=== PATIENT | female | born 1935 | race Caucasian/White ===

== ENCOUNTER 2017-11-16 06:55 | Inpatient (IN) ==
[2017-11-16] MEDS ORDERED: Naloxone 0.4 MG/ML INJ IVP PRN (08:43)
[2017-11-16] MEDS ORDERED: Acetaminophen 325 MG TABLET PO PRN (08:43)
[2017-11-16] MEDS ORDERED: *HR* Labetalol 20 MG/4 ML SYRINGE IVP PRN (09:17)
--- NOTE | 2017-11-16 09:25 | Internal Med History&Physical ---
Date of Encounter: 11/16/17 Time of Encounter: 08:45 Internal Medicine - H&P: HPI Chief complaint: fall, left thigh pain History of present illness: Ms. Kelly is a 82 year old female with multiple orthopedic surgeries including hip, knee, shoulder replacements, presented to the outside hospital ED after an episode of fall today. Her left leg is shorter than her right and she always steps on her R side first to prevent from falling. This morning, when she was getting out of her bed, she stepped on her left side first by mistake and fell onto the floor hitting the back of her head and left thigh. Denies headache, loss of consciousness, blurring of vision, or focal weakness or numbness. No prodromal symptoms including chest pain, palpitation, short of breath, or lightheadedness. Denies any recent illnesses, fevers/chills, nausea/ vomiting, or any other GI or symptoms. In the outside hospital ED, she was afebrile and hemodynamically stable. Labs and radiological studies from the ED reviewed, notable for mildly comminuted and anteriolaterally displaced periprosthetic fracture of the mid left femur, extending to the distal component off the left total hip arthroplasty. CT head showed posterior scalp hematoma. Chest x-ray unremarkable. Lab works were in normal limits including CBC, BMP, INR, and troponin. She sees Dr. Kim for her L hip issue and wanted to be transferred to [facility] for further care. Past Med Surg Social Fam HX - Past Medical History Attestation: Yes The following information was validated with the patient. Medical history: hypertension, other Psychiatric history: anxiety - Past Surgical History Additional surgical history: Shoulder Surgery x2. Back surgery x 2 - Social History Smoking Status: Never smoker Smokeless Tobacco Status: No Alcohol use: none Drug use: none Internal Medicine - H&P: Meds HYDROcodone/Acet 5/325 mg [Rolla 5-325 mg] 1 tab PO Q6H PRN 3 Days #10 tab 10/09 [Rx] Meloxicam [Mobic] 7.5 mg PO DAILY #10 tablet 10/09/17 [Rx] 3 Allergy/AdvReac Type Severity Reaction Status Date / Time No Known Allergies Allergy Verified 08/16/17 12:49 All Systems PM: A 10-system review of systems was performed and is negative for pertinent findings except as documented above in the HPI. - Other Additional findings: General: Alert and oriented, not in distress HEENT:EOM, pupils equal, round, and reactive. Cardiovascular:Normal S1 & S2, systolic murmur over R and L 2nd intercostal space, no radiation to carotids Lungs:Normal breath sounds, no wheezes or crackles. Abdomen:Soft, non-tender, no rigidity. Extremities: L leg internally rotated, shorter than the right by 2 inches. Previous surgical scar over the hip and knee noted. Tender on palpation along the mid femur shaft. Neurovascularly intact distally. Neurological:Normal cognition and motor skills. Skin:Normal color, no rash, no lesions. Pulses:Carotid and radial pulses normal +2. Rest of the physical exam is non-contributory Internal Med - H&P Results - Impressions Laboratory and radiological workup from the outside hospital ED reviewed. See history of present illness for further information - Assessment and plan (1) Cayla-prosthetic femoral shaft fracture Current Visit: Yes Status: Acute Assessment and plan: After a mechanical fall She wishes to be seen by Dr. Kim, consult to orthopedics placed was informed that she is not for op today, will resume regular diet Analgesics (2) Heart murmur Current Visit: Yes Status: Suspected Assessment and plan: Likely due to aortic sclerosis No echocardiogram on file, will obtain one to rule out severe valvulopathy (3) Hypertension Current Visit: Yes Status: Chronic Assessment and plan: Not on any medications at home Aggravated by severe pain Pain management as above. If persistently elevated, will use when necessary agents. Qualifiers: Hypertension type: unspecified Qualified Code(s): I10 - Essential (primary ) hypertension (4) DVT prophylaxis Current Visit: Yes Status: Acute Assessment and plan: SQ heparin - Time Spent With Patient Total time spent is greater than 50% in coordination of care (as documented) at patient's floor/unit and/or counseling patient:
[2017-11-16] MEDS: *HR* OxyCODONE Immed Rel 5 MG TABLET PO PRN ×3 (09:52→23:35)
[2017-11-16] MEDS: Chloraseptic Spray 177 ML BOTTLE MM PRN (17:19)
[2017-11-16] MEDS: *HR* Heparin 5,000 UNIT/ML VIAL SQ SCH (17:19)
[2017-11-16] MEDS ORDERED: Baclofen 10 MG TABLET PO PRN (19:36)
[2017-11-16] MEDS: traMADol 50 MG TABLET PO PRN (20:58)
--- NOTE | 2017-11-16 21:47 | Orthopedic Consult Note ---
Date of Encounter: 11/16/17 Time of Encounter: 21:47 Assessment and Plan (1) Cayla-prosthetic femoral shaft fracture Current Visit: Yes Status: Acute The patient has a displaced periprosthetic femoral shaft fx. I discussed the case with Dr Kim and after medical optimization will plan for ORIF L periprosthetic femur fx with hardware removal L femur on Saturday. NPO at CT saturday. Bedrest/pain control. The diagnosis and treatment plan were discussed with the patient and family as well and they are in agreement with the treatment plan. History of Present Illness HPI: Ms. Kelly is a 82 year old female transferred from OSH with left thigh pain and deformity after a fall. [place] her left leg give out and fell onto her left thigh and hit the back of her head. Denies headache, loss of consciousness, and no prodromal symptoms including chest pain, palpitation, short of breath, or lightheadedness. In the outside hospital ED, she was afebrile and hemodynamically stable, and was diagnosed with displaced periprosthetic fx of left femur just distal to total hip. She has had 2 previous L MICHELLE, also a L TKA with a periprosthetic distal femur fx that was fixed with a short plate. Also has a history of spine surgery and chronic weakness in the lower extremity. Fx of left femur is at distal tip of MICHELLE and is proximal to supracondylar plate. CT of the head showed posterior scalp hematoma. Labs were in normal limits including CBC, BMP, INR, and troponin. She has seen Dr. Kim for her L hip issue in the past and had requested to be transferred to [facility] for further care. Past Med Surg Social Fam HX - Past Medical History Medical history: hyperlipidemia, hypertension, other Psychiatric history: anxiety - Past Surgical History Additional surgical history: Shoulder Surgery x2. Back surgery x 2 - Social History Smoking Status: Never smoker Smokeless Tobacco Status: No Alcohol use: none Drug use: none - Family History Mother Hx Family Endocrine Disorder: Yes (DM) Hx Family Neurologic Disorders: Yes (alzheimers) Medications and Allergies Cholecalciferol (D-3) [Vitamin D] 5,000 unit PO DAILY 11/16/17 [History] Citalopram Hydrobromide [Citalopram HBr] 20 mg PO DAILY 11/16/17 [History] Tramadol HCl [Ultram] 100 mg PO TID PRN 11/16/17 [History] amLODIPine [Norvasc] 5 mg PO DAILY 11/16/17 [History] 3 Allergy/AdvReac Type Severity Reaction Status Date / Time No Known Allergies Allergy Verified 08/16/17 12:49 All Systems Reviewed: The remainder of the systems were reviewed and are negative except as noted in HPI Physical Exam - Constitutional Vitals: Temp Pulse Resp BP Pulse Ox 99.0 F 89 15 145/80 92 11/16/17 18:30 11/16/17 18:30 11/16/17 18:30 11/16/17 18:30 11/16/17 21:21 Exam: Consult Exam: Constitutional -Vitals reviewed -The patient is well developed and well nourished. -Mood is pleasant. -The patient is well groomed. Psychiatric -The patient is fully alert and oriented x 3. Respiratory: -Respiratory effort normal Abdomen: -Soft abdomen -Non tender -Non distended: Left upper extremity: -No deformities. The overlying skin is intact. No obvious signs of acute trauma. -No tenderness to palpation throughout. -No significant pain with passive motion of the shoulder, elbow, wrist, and fingers within the limits of the bed. -Able to make an "OK" sign, cross the index and long fingers, and extend the thumb. -Sensation grossly intact to light touch throughout the median, radial, and ulnar distributions. -Radial pulse is present; Fingers have good capillary refill. Right upper extremity: -No deformities. The overlying skin is intact. No obvious signs of acute trauma. -No tenderness to palpation throughout. -No significant pain with passive motion of the shoulder, elbow, wrist, and fingers within the limits of the bed. -Able to make an "OK" sign, cross the index and long fingers, and extend the thumb. -Sensation grossly intact to light touch throughout the median, radial, and ulnar distributions. -Radial pulse is present; Fingers have good capillary refill. Left lower extremity: -Deformity present. The overlying skin is intact. Previous incisions healed -I did not range the hip due to the known fracture. -No tenderness along the knee, leg, ankle, foot, or toes. -Able to dorsiflex and plantarflex the ankle and toes. -Sensation is grossly intact to light touch throughout the sural, saphenous, superficial peroneal, and deep peroneal distributions. -Toes have good capillary refill. Right lower extremity: -No deformities. The overlying skin is intact. No obvious signs of acute trauma. -No tenderness to palpation throughout. -No pain with passive motion of the hip, knee, ankle, and toes within the limits of the bed. -No pain with axial loading of the thigh. -Able to dorsiflex and plantarflex the ankle and toes. -Sensation is grossly intact to light touch throughout the sural, saphenous, superficial peroneal, and deep peroneal distributions. -Toes have good capillary refill. Results - Labs Labs: All other labs normal. - Diagnostic results Knee x-ray: report reviewed, image reviewed (Displaced periprosthetic femur fx distal to MICHELLE stem. MICHELLE stem appears stable)
[2017-11-16] MEDS ORDERED: Ketorolac 15 MG/ML VIAL IVP ONE (21:49)
[2017-11-17] MEDS: *HR* Heparin 5,000 UNIT/ML VIAL SQ SCH ×2 (05:29→18:29)
[2017-11-17 05:50] LABS: Basophils % 0.3 %; Eosinophils # 0.1 K/mcL (0.0-0.6); Eosinophils % 0.7 %; Hematocrit 39.8 % (35.3-44.9); Hemoglobin 12.5 g/dL (11.5-15.4); Immature Granulocytes % 0.7 % (0-4); Mean Corpuscular HGB Conc 31.4 g/dL (31.6-35.5); Mean Corpuscular Hemoglobin 30.6 pg (28.0-33.3); Mean Corpuscular Volume 97.3 fL (83.0-100.0); Mean Platelet Volume 10.4 fL (9.4-12.4); Monocytes # 0.7 K/mcL (0.0-1.3); Monocytes % 5.8 %; Neutrophils # 10.2 K/mcL (1.6-8.9); Platelet Count 257 K/mcL (140-400); Red Blood Count 4.09 M/mcL (3.82-4.97); Red Cell Distribution Width 13.1 % (11.5-14.5); Segmented Neutrophils % 84.5 %
[2017-11-17 05:58] LABS: Prothrombin Time 11.8 Seconds (9.4-12.1)
[2017-11-17 07:13] LABS: BUN/Creatinine Ratio 21 (6-26); Blood Urea Nitrogen 21 mg/dL (8-23); Calcium 9.4 mg/dL (8.6-10.3); Carbon Dioxide 30 mEq/L (23-29); Chloride 104 mEq/L (98-107); Glucose 145 mg/dL (70-105); Osmolality,Calculated 276 (280-300); Potassium 4.7 mEq/L (3.5-5.1); Sodium 130 mEq/L (136-145); eGFR For Non-African Americans 52 (> 60)
[2017-11-17] MEDS: amLODIPine 5 MG TABLET PO SCH (09:25)
[2017-11-17] MEDS: *HR* OxyCODONE Immed Rel 5 MG TABLET PO PRN ×2 (09:25→18:30)
[2017-11-17] MEDS: Cholecalciferol (D-3) 1,000 UNIT TABLET PO SCH (09:26)
[2017-11-17] MEDS: traMADol 50 MG TABLET PO PRN ×2 (12:07→21:50)
[2017-11-17] MEDS ORDERED: Ketorolac 30 MG/ML VIAL IVP PRN (12:19)
--- NOTE | 2017-11-17 14:06 | Internal Med Progress Note ---
Date of Encounter: 11/17/17 Time of Encounter: 11:15 - Assessment and plan (1) Cayla-prosthetic femoral shaft fracture Current Visit: Yes Status: Acute Assessment and plan: ER imaging study showed- mildly comminuted and anterolaterally displaced periprosthetic fracture of the mid left femur, extending to the distal component off the left total hip arthroplasty. Orthopedics consulted, plan for ORIF L periprosthetic femur fx with hardware removal L femur tomorrow; continue pain control with PRN Ultram, Toradol and Oxycodone; bedrest; PT/OT postop; Given her age and poor baseline functional status and Echo findings, patient is at least moderate risk for noncardiac surgery; (2) Hypertension Current Visit: Yes Status: Chronic Assessment and plan: BP well-controlled, continue home meds; Qualifiers: Hypertension type: essential hypertension Qualified Code(s): I10 - Essential (primary) hypertension (3) DVT prophylaxis Current Visit: Yes Status: Acute Assessment and plan: on s.c Heparin; (4) Heart murmur Current Visit: Yes Status: Chronic Assessment and plan: Echocardiogram shows preserved EF, moderate-severe concentric LVH, mild- moderate AR, moderately calcified aortic valve leaflets, mild LVOT obstruction. (5) Anxiety Current Visit: Yes Status: Chronic Assessment and plan: per family, patient's anxiety and some confusion is new onset; CT head and CT C- Spine in the ER showed no trauma/fracture; she did receive posterior scalp sutures; repeat CT head today is normal; start PRN Hydroxyzine for anxiety; continue Citalopram; - Time Spent With Patient Total time spent is greater than 50% in coordination of care (as documented) at patient's floor/unit and/or counseling patient: - Subjective Interval history: patient is extremely anxious and talking about multiple unrelated things, jumping from one to the other; has left thigh pain and swelling from the fall; received posterior scalp sutures but no headache, nausea, vomiting, syncope; - Constitutional Vitals: Temp Pulse Resp BP Pulse Ox 99.0 F 81 16 136/70 93 11/17/17 11:28 11/17/17 11:28 11/17/17 11:28 11/17/17 11:28 11/17/17 11:28 General appearance: Present: mild distress, A&O X 3, answers questions appropriately - Respiratory Respiratory exam: Present: CTAB. Absent: accessory muscle use, rales, rhonchi, wheezes - Cardiovascular Cardiovascular exam: Present: RRR, +S1, +S2, systolic murmur. Absent: diastolic murmur, gallop, rubs - GI/Abdominal GI/Abdominal exam: Present: normal bowel sounds, soft, no peritoneal signs. Absent: distended, tenderness - Extremities Exam Extremities exam: Present: warm, radial pulses palpable and symmetrical. Absent : calf tenderness, cyanotic, pedal edema Additional comments: left posterolateral thigh- tenderness and edema+ - Psychiatric Psychiatric exam: Present: agitated Additional comments: seems anxious, jumping from one topic to another, oriented in general Internal Medicine: Result - Labs CBC & Chem 7: 11/17/17 04:28 11/17/17 06:40 Labs: Short CBC 11/17/17 Range/Units 04:28 WBC 12.1 H (4.3-11.1) K/mcL Hgb 12.5 (11.5-15.4) g/dL Hct 39.8 (35.3-44.9) % Plt Count 257 (140-400) K/mcL Neutrophils # 10.2 H (1.6-8.9) K/mcL BMP 11/17/17 06:40 Sodium 130 L Potassium 4.7 Chloride 104 Carbon Dioxide 30 H BUN 21 Creatinine 1.01 Glucose 145 H Calcium 9.4 - ABG Interpretation ABG results: PT/INR, D-dimer PT 11.8 Seconds (9.4-12.1) 11/17/17 04:28 - Impressions Impressions Head CT 11/17/17 12:18 IMPRESSION: No acute intracranial abnormality. D/ / Germain Petersen MD / Germain Petersen MD Interpreting Provider: Germain Petersen MD
[2017-11-17] MEDS: Ketorolac 30 MG/ML VIAL IVP PRN (14:57)
[2017-11-17] MEDS: Chloraseptic Spray 177 ML BOTTLE MM PRN (18:29)
[2017-11-18 00:40] LABS: Basophils % 0.3 %; Eosinophils # 0.2 K/mcL (0.0-0.6); Eosinophils % 1.6 %; Hematocrit 34.8 % (35.3-44.9); Hemoglobin 11.2 g/dL (11.5-15.4); Immature Granulocytes % 0.6 % (0-4); Lymphocytes # 1.2 K/mcL (0.6-4.6); Lymphocytes % 10.5 %; Mean Corpuscular HGB Conc 32.2 g/dL (31.6-35.5); Mean Corpuscular Hemoglobin 30.5 pg (28.0-33.3); Mean Corpuscular Volume 94.8 fL (83.0-100.0); Mean Platelet Volume 10.2 fL (9.4-12.4); Monocytes # 0.9 K/mcL (0.0-1.3); Monocytes % 8.2 %; Platelet Count 217 K/mcL (140-400); Red Blood Count 3.67 M/mcL (3.82-4.97); Red Cell Distribution Width 12.9 % (11.5-14.5); Segmented Neutrophils % 78.8 %
[2017-11-18 01:02] LABS: BUN/Creatinine Ratio 29 (6-26); Blood Urea Nitrogen 26 mg/dL (8-23); Carbon Dioxide 28 mEq/L (23-29); Chloride 98 mEq/L (98-107); Glucose 153 mg/dL (70-105); Osmolality,Calculated 282 (280-300); Potassium 4.5 mEq/L (3.5-5.1); Sodium 132 mEq/L (136-145); eGFR For Non-African Americans 59 (> 60)
[2017-11-18] MEDS: *HR* OxyCODONE Immed Rel 5 MG TABLET PO PRN ×3 (04:57→19:25)
[2017-11-18] MEDS: *HR* Heparin 5,000 UNIT/ML VIAL SQ SCH (04:59)
--- NOTE | 2017-11-18 06:45 | Orthopedics Progress Note ---
Date of Encounter: 11/18/17 Time of Encounter: 06:44 Subjective Interval history: Patient seen this morning x-rays reviewed left periprosthetic femoral shaft fracture plan for open reduction internal fixation. On exam patient shortened external rotated neurovascularly intact. Thigh soft We reviewed the risks and benefits as well as recovery. All questions were answered. The patient agreed to this treatment plan and appeared to understand the plan is reviewed. Objective Vital signs: Vital Signs Temp Pulse Resp BP Pulse Ox 11/18/17 05:41 98.9 F 80 18 186/69 94 11/17/17 23:33 99.0 F 88 14 169/69 92 11/17/17 19:49 92 11/17/17 19:32 98.7 F 86 16 159/69 92 11/17/17 15:31 99.3 F 80 14 147/75 92 11/17/17 11:28 99.0 F 81 16 136/70 93 11/17/17 09:35 95 11/17/17 07:02 99.0 F 85 16 146/70 95 Intake and Output 11/17/17 11/17/17 11/18/17 15:59 23:59 07:59 Intake Total 240 / 240 740 / 740 Output Total 275 / 275 Balance 240 / 240 465 / 465 Intake: Oral 240 / 240 740 / 740 Output: Catheter 275 / 275 Other: Meal Lunch Dinner Percent of Meal Consumed 40% 50% Weight 68.5 kg Patient Weight 11/18/17 23:59 Weight 68.5 kg - Labs CBC & BMP: 11/18/17 00:21 11/18/17 00:21 Labs: Abnormal lab results WBC 11.5 K/mcL (4.3-11.1) H 11/18/17 00:21 RBC 3.67 M/mcL (3.82-4.97) L 11/18/17 00:21 Hgb 11.2 g/dL (11.5-15.4) L 11/18/17 00:21 Hct 34.8 % (35.3-44.9) L 11/18/17 00:21 Neutrophils # 9.0 K/mcL (1.6-8.9) H 11/18/17 00:21 Sodium 132 mEq/L (136-145) L 11/18/17 00:21 BUN 26 mg/dL (8-23) H 11/18/17 00:21 Est GFR (Non-Af Amer) 59 (> 60) L 11/18/17 00:21 BUN/Creatinine Ratio 29 (6-26) H 11/18/17 00:21 Glucose 153 mg/dL (70-105) H 11/18/17 00:21
--- NOTE | 2017-11-18 09:11 | Event Note ---
Date of Encounter: 11/18/17 Time of Encounter: 09:11 Risks and benefits of surgery reviewed with patient and her daughter at bedside. Informed consent for surgery obtained.
[2017-11-18] MEDS: Ketorolac 30 MG/ML VIAL IVP PRN ×2 (09:13→19:18)
[2017-11-18] MEDS: Cholecalciferol (D-3) 1,000 UNIT TABLET PO SCH (09:14)
[2017-11-18] MEDS: amLODIPine 5 MG TABLET PO SCH (09:14)
--- NOTE | 2017-11-18 10:31 | Internal Med Progress Note ---
Date of Encounter: 11/18/17 Time of Encounter: 10:00 - Assessment and plan (1) Cayla-prosthetic femoral shaft fracture Current Visit: Yes Status: Acute Assessment and plan: ER imaging study showed- mildly comminuted and anterolaterally displaced periprosthetic fracture of the mid left femur, extending to the distal component off the left total hip arthroplasty. For ORIF L periprosthetic femur fx with hardware removal L femur today continue pain control with PRN Ultram, Toradol and Oxycodone; bedrest; PT/OT postop; Given her age and poor baseline functional status and Echo findings, patient is at least moderate risk for noncardiac surgery (2) Heart murmur Current Visit: Yes Status: Chronic Assessment and plan: Echocardiogram shows preserved EF, moderate-severe concentric LVH, mild- moderate AR, moderately calcified aortic valve leaflets, mild LVOT obstruction. (3) Hypertension Current Visit: No Status: Chronic Assessment and plan: BP well-controlled, continue home meds; Qualifiers: Hypertension type: essential hypertension Qualified Code(s): I10 - Essential (primary) hypertension (4) DVT prophylaxis Current Visit: Yes Status: Acute Assessment and plan: Subcutaneous heparin (5) Anxiety Current Visit: Yes Status: Chronic Assessment and plan: When necessary hydroxyzine and continue home dose of Celexa - Subjective Interval history: Continues to have mild left thigh pain. Relatively controlled with pain medicine. Denies fever/chills, shortness of breath, chest pain, or cough. - Constitutional Vitals: Temp Pulse Resp BP Pulse Ox 98.0 F 96 16 150/75 93 11/18/17 07:13 11/18/17 07:13 11/18/17 07:13 11/18/17 07:13 11/18/17 07:13 General appearance: Present: mild distress, A&O X 3, answers questions appropriately Exam: - Respiratory Respiratory exam: Present: CTAB. Absent: accessory muscle use, rales, rhonchi, wheezes - Cardiovascular Cardiovascular exam: Present: RRR, +S1, +S2, systolic murmur. Absent: diastolic murmur, gallop, rubs - GI/Abdominal GI/Abdominal exam: Present: normal bowel sounds, soft, no peritoneal signs. Absent: distended, tenderness - Extremities Exam Extremities exam: Present: warm, radial pulses palpable and symmetrical. Absent : calf tenderness Additional comments: left posterolateral thigh - tenderness and edema + Internal Medicine: Result - Labs CBC & Chem 7: 11/18/17 00:21 11/18/17 00:21 Labs: Short CBC 11/18/17 Range/Units 00:21 WBC 11.5 H (4.3-11.1) K/mcL Hgb 11.2 L (11.5-15.4) g/dL Hct 34.8 L (35.3-44.9) % Plt Count 217 (140-400) K/mcL Neutrophils # 9.0 H (1.6-8.9) K/mcL BMP 11/18/17 00:21 Sodium 132 L Potassium 4.5 Chloride 98 Carbon Dioxide 28 BUN 26 H Creatinine 0.91 Glucose 153 H Calcium 9.0 - ABG Interpretation ABG results: PT/INR, D-dimer PT 11.8 Seconds (9.4-12.1) 11/17/17 04:28 - Impressions Impressions Head CT 11/17/17 12:18 IMPRESSION: No acute intracranial abnormality. D/ / Germain Petersen MD / Germain Petersen MD Interpreting Provider: Germain Petersen MD
[2017-11-18] MEDS ORDERED: *HR* Propofol 200 MG/20 ML VIAL IVP ONE (14:48)
[2017-11-18] MEDS ORDERED: *HR* FentaNYL (PF) 100 MCG/2 ML VIAL ONE ×2 (14:48→15:51)
[2017-11-18] MEDS ORDERED: Ondansetron 4 MG/2 ML VIAL ONE (14:49)
[2017-11-18] MEDS ORDERED: Lidocaine -MPF 2% 2 ML VIAL ONE (14:49)
[2017-11-18] MEDS ORDERED: Dexamethasone 4 MG/ML VIAL ONE (14:49)
[2017-11-18] MEDS ORDERED: ceFAZolin 2,000 MG in Water for inj. (sterile) 20 ML 10 ML IVP ONE (15:17)
--- NOTE | 2017-11-18 15:26 | Anesthesia Evaluation PreOp ---
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 History: Other (Anxiety, Depression) Anesthesia History: No Prior Anesthetic Complications, Past Anesthesia Alcohol Use: none Drug use: none Medications and Allergies Cholecalciferol (D-3) [Vitamin D] 5,000 unit PO DAILY 11/16/17 [History] Citalopram Hydrobromide [Citalopram HBr] 20 mg PO DAILY 11/16/17 [History] Tramadol HCl [Ultram] 100 mg PO TID PRN 11/16/17 [History] amLODIPine [Norvasc] 5 mg PO DAILY 11/16/17 [History] 3 Allergy/AdvReac Type Severity Reaction Status Date / Time No Known Allergies Allergy Verified 08/16/17 12:49 - Meds/Allergy Pre-op Review Medications Reviewed: Yes Allergies Reviewed: Yes Beta Blockers on Current Med List: No Anesthesia Results - Labs 11/18/17 00:21 11/18/17 00:21 Anesthesia Exam O2 Sat Weight 68.5 kg Height 1.6 m Vital Signs Temp Pulse Resp BP Pulse Ox 97.6 F 88 18 142/72 93 11/16/17 09:55 11/16/17 09:55 11/16/17 09:55 11/16/17 09:55 11/16/17 09:55 NPO (# of Hours): 8 - HEENT Pupil (Motor): Pupils equal Mallampati: II Teeth: Missing, Poor dentition Denture Type: Upper: Complete Oral Opening: Greater than 3 - SUPPLY CHAIN TECHNICIAN LOC: Oriented - Cardiac Rhythm: Regular - Pulmonary Breath Sounds: bilateral Clear Anesthesia Assess/Plan ASA Score: 3 Modified Kim Scale for Level of Consciousness: Cooperative, oriented, and tranquil Anesthetic Plan: Regional (SAB - Primary anesthetic) Monitoring Plan: Standard Monitors Recovery Plan: PACU
[2017-11-18] MEDS ORDERED: Lidocaine -MPF 2% 5 ML VIAL ONE (15:27)
[2017-11-18] MEDS ORDERED: CeFAZolin Syr 2,000MG/20 ML 2,000 MG/20 ML SYRINGE IVPB ONE (15:45)
[2017-11-18] MEDS ORDERED: *HR* Midazolam HCl 2 MG/2 ML VIAL ONE (15:51)
[2017-11-18] MEDS ORDERED: EPHEDrine 50 MG/ML VIAL ONE (15:52)
--- NOTE | 2017-11-18 16:31 | Anesthesia Procedures ---
Date of Encounter: 11/18/17 Time of Encounter: 16:10 Procedures: Anesthesia - Lumbar Puncture Patient ID/Chart reviewed: Yes Patient examined: Yes Any signs of Infection or bacteremia: No Patient on Blood thinners: No Consent Obtained: written consent Time Out Performed: Yes Patient Position: right lateral decubitus Site Prep: Aseptic Technique, Povidone-Iodine 1% Local Anesthetic Used: Lidocaine 1% Amount of anesthesia used (mls): 2.5 (0.5% BUPIVACAINE +25 MCG FENTANYL) Spinal Needle Gauge: 22G Interspace Used: Other (L2-L3) Fluid Initially Obtained: clear Complications: none Additional Comments:: 5 attempts, unable to identify suitable plane, last attempt paramedian.
[2017-11-18] MEDS ORDERED: *HR* PHENYLEPHRINE 1,000 MCG/10 ML SYRINGE IVP ONE ×2 (17:12→17:17)
--- NOTE | 2017-11-18 17:49 | Orthopedic Operative Note ---
Date of procedure: 11/18/17 Pre-op diagnosis: disPlaced periprosthetic left femur fracture Post-op diagnosis: same Procedure: Left open reduction internal fixation periprosthetic femur fracture Estimated blood loss: 200 cc Hardware: Waldo titanium broad 5.0 femoral plate, 2, 5.0 locking screws, 8, 4.5 locking screws, 8 Arthrex cerclage fiber tapes Operative procedure: The patient was brought to the operating room and placed on the operating room fracture table. The well leg was placed in the well leg cloeman, the fracture leg was placed in the fracture leg coleman. After general anesthesia was administered the operative leg was prepped and draped in the sterile surgical fashion The patient received IV antibiotics prior to skin incision. A standard lateral approach was made to the femur the incision is made to the skin and subcutaneous tissue. Hemostasis was obtained with Bovie cautery. Using careful blunt dissection the tensor fascia was identified and incised along the length of the incision. The vastus lateralis was elevated up after the fascia was split exposing the lateral femur and the fracture site. The fractures reduced and held in place with bone holding forceps. 5 Arthrex cerclage fiber tapes were passed to gain preliminary fixation. Position of the reduction was found to be acceptable fluoroscopic assistance. A Waldo 5.0 broad 10 hole plate was approximated to the lateral aspect. It was fixed distally in compression. It was fixed proximally compression. Screws were fixed bicortical going around the femoral component. Distally the plate overlapped the patient's previous periprosthetic femoral plate for the distal femur. Fixation was completed with a total of 2 5.0 locking screws and 8, 4.5 cortical screws. The plate fixation was augmented with 3 Arthrex cerclage fiber tapes. The wound was irrigated the fascia was closed with a running #1 PDS suture tensa fascia was closed with a running #2 PDS suture subcutaneous tissues and closed deep #1 PDS suture superficially with 0 PDS suture and skin was closed with Dermabond and skin charley. The patient was placed in a sterile dressing, and knee immobilizer The patient was extubated, and then transferred to the recovery room in stable condition. Anesthesia: spinal Surgeon: Chito Kim Was there an classroom assistant present: Yes Grain Wafer Machine Operator: Gracie Chambers Estimated blood loss (cc): 200 Condition: stable Disposition: PACU
[2017-11-18] MEDS ORDERED: Naloxone 0.4 MG/ML INJ IVP PRN (18:53)
[2017-11-18] MEDS ORDERED: Acetaminophen 325 MG TABLET PO PRN (18:53)
[2017-11-18] MEDS ORDERED: Chloraseptic Spray 177 ML BOTTLE MM PRN (18:53)
[2017-11-18] MEDS ORDERED: Baclofen 10 MG TABLET PO PRN (18:53)
--- NOTE | 2017-11-18 18:53 | Anesthesia Evaluation Post Op ---
Date of Encounter: 11/18/17 Time of Encounter: 18:45 Notes: Patient's vital signs have been reviewed. Patient is stable postoperatively and has adequately recovered from anesthesia. Patient is determined to have stable airway patency and respiratory function including respiratory rate and oxygen saturation. Patient has a stable heart rate, blood pressure and adequate hydration. Patients mental status is acceptable. Patients temperature is appropriate. Pain and nausea are adequately controlled. - Discharge PostOp Status: Transfer Patient to floor
[2017-11-18 20:54] LABS: Hematocrit 33.5 % (35.3-44.9)
[2017-11-18] MEDS: Ringers Solution, Lactated 1,000 ML IVC SCH (21:58)
[2017-11-19] MEDS: *HR* Labetalol 20 MG/4 ML SYRINGE IVP PRN (01:21)
[2017-11-19] MEDS: *HR* OxyCODONE Immed Rel 5 MG TABLET PO PRN ×3 (03:07→20:53)
[2017-11-19] MEDS: *HR* Heparin 5,000 UNIT/ML VIAL SQ SCH ×2 (06:06→17:47)
[2017-11-19] MEDS: traMADol 50 MG TABLET PO PRN (06:09)
--- NOTE | 2017-11-19 06:46 | Orthopedics Progress Note ---
Date of Encounter: 11/19/17 Time of Encounter: 06:46 Subjective Interval history: Patient was seen this morning doing well without complaints. Afebrile vital signs stable. Operative extremity: Neurovascularly intact Dressing clean dry and intact Calves nontender Assessment and plan: Continue with postoperative care Hematocrit 33 and orthopedically stable for discharge Objective Vital signs: Vital Signs Temp Pulse Resp BP Pulse Ox 11/19/17 03:12 98.0 F 77 18 134/74 97 11/19/17 01:45 83 148/67 11/19/17 00:59 97.9 F 92 18 197/80 98 11/18/17 21:55 97.7 F 77 18 165/70 97 11/18/17 21:00 94 11/18/17 20:55 97.7 F 80 18 160/71 95 11/18/17 19:55 97.8 F 81 20 167/70 97 11/18/17 19:25 97.8 F 85 20 170/75 97 11/18/17 19:16 97.8 F 87 24 172/76 97 11/18/17 18:43 98.9 F 84 18 164/77 98 11/18/17 18:33 98.9 F 89 16 153/84 96 11/18/17 18:23 89 16 125/72 95 11/18/17 18:13 88 14 113/86 98 11/18/17 18:03 97.4 F L 85 14 149/75 97 11/18/17 16:18 78 14 62/38 99 11/18/17 16:15 81 15 64/38 99 11/18/17 16:12 89 84/47 99 11/18/17 15:43 82 16 160/76 98 11/18/17 07:13 98.0 F 96 16 150/75 93 Intake and Output 11/18/17 11/18/17 11/19/17 15:59 23:59 07:59 Intake Total 100 / 100 Output Total 525 / 525 200 / 200 650 / 650 Balance -525 / -525 -200 / -200 -550 / -550 Intake: IV Fluids 100 / 100 Ancef 2,000 MG In 0.9 % Sodium 100 / 100 Chloride 100 ML @ 200 mls/hr IVPB Q8HR [facility] Rx#:[id number] Output: Estimated Blood Loss 200 / 200 Catheter 525 / 525 650 / 650 - Labs CBC & BMP: 07/31/18 01:01 11/18/17 00:21 Labs: Abnormal lab results WBC 11.5 K/mcL (4.3-11.1) H 11/18/17 00:21 RBC 3.67 M/mcL (3.82-4.97) L 11/18/17 00:21 Hgb 11.0 g/dL (11.5-15.4) L 11/19/17 01:01 Hct 33.0 % (35.3-44.9) L 11/19/17 01:01 Neutrophils # 9.0 K/mcL (1.6-8.9) H 11/18/17 00:21 Sodium 132 mEq/L (136-145) L 11/18/17 00:21 BUN 26 mg/dL (8-23) H 11/18/17 00:21 Est GFR (Non-Af Amer) 59 (> 60) L 11/18/17 00:21 BUN/Creatinine Ratio 29 (6-26) H 11/18/17 00:21 Glucose 153 mg/dL (70-105) H 11/18/17 00:21 - VTE Documentation of Mechanical Device: Venous foot pump, device
[2017-11-19] MEDS: Cholecalciferol (D-3) 1,000 UNIT TABLET PO SCH (08:12)
[2017-11-19] MEDS: amLODIPine 5 MG TABLET PO SCH (08:12)
[2017-11-19] MEDS: Ketorolac 30 MG/ML VIAL IVP PRN (13:45)
--- NOTE | 2017-11-19 14:02 | Internal Med Progress Note ---
Hospitalist Progress Note - Encounter Date of Encounter: 11/19/17 Time of Encounter: 10:30 - Subjective Interval History: Patient denies any new symptoms as far as pain is concerned. She states that it is better overall. She did have a difficult night 2 nights ago with anxiety but is comfortable - Exam Vitals: Temp Pulse Resp BP Pulse Ox 97.9 F 86 16 142/79 96 11/19/17 12:47 11/19/17 12:47 11/19/17 12:47 11/19/17 12:47 11/19/17 12:47 - Assessment and Plan (1) Cayla-prosthetic femoral shaft fracture Current Visit: Yes Status: Acute Assessment and Plan: ER imaging study showed- mildly comminuted and anterolaterally displaced periprosthetic fracture of the mid left femur, extending to the distal component off the left total hip arthroplasty. Orthopedics consulted, plan for ORIF L periprosthetic femur fx with hardware removal L femur tomorrow; continue pain control with PRN Ultram, Toradol and Oxycodone; bedrest; PT/OT postop; Given her age and poor baseline functional status and Echo findings, patient is at least moderate risk for noncardiac surgery; 11/19-postop day 1 ORIF for left femoral periprostatic fracture. Orthopedic surgery following and according to them she is stable for discharge. Awaiting disposition planning. Physical therapy and occupational therapy are recommending [facility] facility and case management is aware and working on discharge planning. I anticipate discharge soon. Pain control is appropriate (2) Hypertension Current Visit: No Status: Chronic Assessment and Plan: BP well-controlled, continue to monitor on home medication (3) DVT prophylaxis Current Visit: Yes Status: Acute Assessment and Plan: on s.c Heparin; (4) Heart murmur Current Visit: Yes Status: Chronic (5) Anxiety Current Visit: Yes Status: Chronic Assessment and Plan: per family, patient's anxiety and some confusion is new onset; CT head and CT C- Spine in the ER showed no trauma/fracture; she did receive posterior scalp sutures; repeat CT head today is normal; start PRN Hydroxyzine for anxiety; continue Citalopram; 11/19-continue when necessary anxiolytics DVT Prophylaxis: Subcutaneous heparin - Time Spent with Patient Total time spent is greater than 50% in coordination of care (as documented) at patient's floor/unit and/or counseling patient: 25 - 35 minutes Plan of Care Discussed with: patient Internal Medicine: Result - Labs CBC & Chem 7: 11/19/17 01:01 11/18/17 00:21 Labs: Short CBC 11/18/17 11/19/17 Range/Units 20:33 01:01 Hgb 11.0 L 11.0 L (11.5-15.4) g/dL Hct 33.5 L 33.0 L (35.3-44.9) % - ABG Interpretation ABG results: PT/INR, D-dimer PT 11.8 Seconds (9.4-12.1) 11/17/17 04:28 - Impressions Impressions Femur X-Ray 11/18/17 15:59 IMPRESSION: Status post interval ORIF of the mid left femoral shaft fracture without complication identified. D/ / Lc Menjivar MD / Lc Menjivar MD Interpreting Provider: Lc Menjivar MD Fluoroscopy 11/18/17 16:25 IMPRESSION: Intraprocedural fluoroscopic spot images as above. See separate procedure report for more information. D/ / Renee Gallardo Cha, MD / Renee Gallardo Cha, MD Interpreting Provider: Renee Gallardo Cha, MD - VTE Documentation of Mechanical Device: Venous foot pump, device Consult Discharge Plan - Plan Referrals: NONE,PCP [Primary Care Provider] - (2) Hypertension Qualifiers: Hypertension type: essential hypertension Qualified Code(s): I10 - Essential (primary) hypertension
[2017-11-19] MEDS: Ringers Solution, Lactated 1,000 ML IVC SCH (18:11)
--- NOTE | 2017-11-19 18:27 | Event Note ---
Date of Encounter: 11/19/17 Time of Encounter: 12:15 POD#1 s/p Date of procedure: 11/18/17 Pre-op diagnosis: disPlaced periprosthetic left femur fracture Post-op diagnosis: same Procedure: Left open reduction internal fixation periprosthetic femur fracture Procedure performed by Dr. Kim. PCR - Patient seen at bedside. Patient's daughter available on the floor. Alert and oriented x 3. Patient noted to be agitated stating that she does not wish to to extended care facility or prison. She states she is okay with rehabilitation however she states that she will only go she personally speaks to the facility and is sure that she will be well treated. Reassurance regarding social work and the team involvement was not reassuring to patient and she became increasingly agitated eventually raising her voice and becoming tearful. Patient was able to be calmed by stating that a decision was not made as of yet today and that she would be able to speak with Dr. Kim in the morning regarding her concerns for rehabilitation. Patient resting supine in bed. Incision clean dry and intact. Dressings intact. TROM brace in place to left lower extremity. No calf tenderness to bilateral lower extremities. She is neurovascularly intact to bilateral lower extremities. Labwork and medications reviewed. H/H Vital signs reviewed. Pain control: Adequate - tizanidine added for additional pain relief. Participating in PT. All questions and concerns addressed. Educated on use of incentive spirometer, ambulation, and hydration. Patient educated on post-operative restrictions and care. Addressed: Patient is to have NO KNEE MOTION. REMAIN IN TROM BRACE TO LEFT KNEE AT ALL TIMES - REMOVE FOR HYGEINE PURPOSES ONLY. NONWEIGHTBEARING TO LLE X 6 WEEKS. BONE STIMULATOR 3 HRS/DAY. Opsite placed. KEEP DRESSING INTACT UNTIL FIRST FOLLOW UP APPOINTMENT WITH [facility]. If greater than 50% saturated, notify office, remove dressing and place appropriate dressing back in place. Leave Zipline and charley intact. Opsite dressing is water resistant, not water-proof. OK to shower, but do not get dressing wet. D/C plan: ECF versus inpatient rehabilitation. Patient with significant concerns - social work aware and working on placement at this time. Appropriate for discharge from orthopedic perspective so long as above stated restrictions remain in place.
[2017-11-20 01:21] LABS: Hematocrit 27.5 % (35.3-44.9)
[2017-11-20] MEDS: *HR* Labetalol 20 MG/4 ML SYRINGE IVP PRN (04:28)
[2017-11-20] MEDS: *HR* Heparin 5,000 UNIT/ML VIAL SQ SCH ×3 (05:01→18:08)
[2017-11-20] MEDS: *HR* OxyCODONE Immed Rel 5 MG TABLET PO PRN ×3 (05:54→19:50)
--- NOTE | 2017-11-20 06:45 | Orthopedics Progress Note ---
Date of Encounter: 11/20/17 Time of Encounter: 06:44 Subjective Interval history: Patient was seen this morning postoperative confusion possible signed Afebrile vital signs stable. Operative extremity: Neurovascularly intact Dressing clean dry and intact Calves nontender Assessment and plan: Continue with postoperative care Hemoglobin 9 Objective Vital signs: Vital Signs Temp Pulse Resp BP Pulse Ox 11/20/17 04:06 98.0 F 87 15 186/70 92 11/19/17 23:41 98.2 F 85 17 153/70 92 11/19/17 19:59 98.4 F 83 19 158/63 95 11/19/17 17:27 99.1 F 86 16 149/87 96 11/19/17 12:47 97.9 F 86 16 142/79 96 11/19/17 08:26 95 11/19/17 06:53 98.2 F 78 15 132/72 95 Intake and Output 11/19/17 11/19/17 11/20/17 15:59 23:59 07:59 Intake Total 1480 / 1480 120 / 120 Output Total 650 / 650 600 / 600 Balance 830 / 830 -480 / -480 Intake: IV Fluids 1000 / 1000 Lactated Ringers 1,000 ML @ 75 1000 / 1000 mls/hr IVC .[id number] [facility] Rx#: [id number] Oral 480 / 480 120 / 120 Output: Catheter 650 / 650 600 / 600 Other: Meal Lunch Dinner Percent of Meal Consumed 100% 60% - Labs CBC & BMP: 11/20/17 00:44 11/18/17 00:21 Labs: Abnormal lab results WBC 11.5 K/mcL (4.3-11.1) H 11/18/17 00:21 RBC 3.67 M/mcL (3.82-4.97) L 11/18/17 00:21 Hgb 9.0 g/dL (11.5-15.4) L D 11/20/17 00:44 Hct 27.5 % (35.3-44.9) L 11/20/17 00:44 Neutrophils # 9.0 K/mcL (1.6-8.9) H 11/18/17 00:21 Sodium 132 mEq/L (136-145) L 11/18/17 00:21 BUN 26 mg/dL (8-23) H 11/18/17 00:21 Est GFR (Non-Af Amer) 59 (> 60) L 11/18/17 00:21 BUN/Creatinine Ratio 29 (6-26) H 11/18/17 00:21 Glucose 153 mg/dL (70-105) H 11/18/17 00:21 - VTE Documentation of Mechanical Device: Venous foot pump, device Consult Discharge Plan - Plan Referrals: NONE,PCP [Primary Care Provider] -
[2017-11-20] MEDS: Ringers Solution, Lactated 1,000 ML IVC SCH (09:32)
[2017-11-20] MEDS: amLODIPine 5 MG TABLET PO SCH (09:41)
[2017-11-20] MEDS: Cholecalciferol (D-3) 1,000 UNIT TABLET PO SCH (09:42)
[2017-11-20] MEDS: Ketorolac 30 MG/ML VIAL IVP PRN ×2 (09:42→12:39)
--- NOTE | 2017-11-20 13:43 | Internal Med Progress Note ---
Hospitalist Progress Note - Encounter Date of Encounter: 11/20/17 Time of Encounter: 13:38 - Subjective Interval History: has no compliants, currently ating break fast. denies leg pain. was evaluated by orthopedics earlier. reports that her pain is more controlled alos her anxiety is better. denies N/v/D- is tolerating PO diet cenies CP, SOB, palpitations - Exam Vitals: Temp Pulse Resp BP Pulse Ox 98.5 F 73 16 135/77 93 11/20/17 11:11 11/20/17 11:11 11/20/17 11:11 11/20/17 11:11 11/20/17 11:11 Exam: General: Patient is alert, not in distress, eating breakfast Head: atraumatic, normocephalic, Eye: normal appearance, PERRL, no scleral icterus, no conjunctival injection ENT: mucous membranes moist, normal external ear exam Neck: normal inspection, trachea midline, full ROM, no carotid bruits Chest: normal inspection, symmetric chest rise Respiratory: Good respiratory effort. Bilateral breath sounds are clear Cardiovascular: Regular rate and rhythm. s1 and s2 ve systolic murmur Abdomen: BS +ve , soft nontender musculoskeletal: Spontaneously moving all extremities. + edema, has brace on Skin: warm, dry, intact. Neuro: Alert, speech is appropriate moving all extremities Psych: Patient's affect is normal - Assessment and Plan (1) Cayla-prosthetic femoral shaft fracture Current Visit: Yes Status: Acute Assessment and Plan: ER imaging study showed- mildly comminuted and anterolaterally displaced periprosthetic fracture of the mid left femur, extending to the distal component off the left total hip arthroplasty s/p ORIF for left femoral periprostatic fracture. orthopedecs on board will continue to follow recommendations [facility] and case management is aware and working on discharge planning. continue pain control Patient is to have no knee motion Remain in trom brace to the left knee at all times remove for hygiene purposes only Non-weight bearing to left lower extremity for 6 weeks Bone stimulator 3 hours per day Opsite placed. KEEP DRESSING INTACT UNTIL FIRST FOLLOW UP APPOINTMENT WITH [facility]. If greater than 50% saturated, notify office, remove dressing and place appropriate dressing back in place. Leave Zipline and charley intact. Opsite dressing is water resistant, not water-proof. OK to shower, but do not get dressing wet ON DVT prophylaxis as per Dr. Kim (2) Hypertension Current Visit: No Status: Chronic Assessment and Plan: BP well-controlled, continue to monitor on home medication (3) DVT prophylaxis Current Visit: Yes Status: Acute Assessment and Plan: on s.c Heparin; as per Orthopedics recommendations (4) Heart murmur Current Visit: Yes Status: Chronic Assessment and Plan: Echocardiogram shows preserved EF, moderate-severe concentric LVH, mild- moderate AR, moderately calcified aortic valve leaflets, mild LVOT obstruction. (5) Anxiety Current Visit: Yes Status: Chronic Assessment and Plan: 11/16/17- IMPRESSION: No acute intracranial abnormality. start PRN Hydroxyzine for anxiety; continue Citalopram; DVT Prophylaxis: on heparin SC as per orthopedics recommendations - Time Spent with Patient Total time spent is greater than 50% in coordination of care (as documented) at patient's floor/unit and/or counseling patient: Internal Medicine: Result - Labs CBC & Chem 7: 11/20/17 00:44 11/18/17 00:21 Labs: Short CBC 11/20/17 Range/Units 00:44 Hgb 9.0 L D (11.5-15.4) g/dL Hct 27.5 L (35.3-44.9) % - ABG Interpretation ABG results: PT/INR, D-dimer PT 11.8 Seconds (9.4-12.1) 11/17/17 04:28 - VTE Documentation of Mechanical Device: Venous foot pump, device Consult Discharge Plan - Plan Referrals: NONE,PCP [Primary Care Provider] - (2) Hypertension Qualifiers: Hypertension type: essential hypertension Qualified Code(s): I10 - Essential (primary) hypertension
--- NOTE | 2017-11-20 16:23 | Event Note ---
Date of Encounter: 11/20/17 Time of Encounter: 11:30 POD#2 s/p Date of procedure: 11/18/17 Pre-op diagnosis: disPlaced periprosthetic left femur fracture Post-op diagnosis: same Procedure: Left open reduction internal fixation periprosthetic femur fracture Procedure performed by Dr. Kim. PCR - Patient seen at bedside. Alert and oriented x person, place. Patient continues to have intermittent spurts of agitation regarding orientation to time and events. She states she got shots to her right hip last night by a doctor. I am unable to discern from her statements to what she is referring and believe her to be experiencing ongoing if not worsened confusion compared to yesterday. Patient resting supine in bed. Incision clean dry and intact. Dressings intact. TROM brace in place to left lower extremity. No calf tenderness to bilateral lower extremities. She is neurovascularly intact to bilateral lower extremities. Labwork and medications reviewed. Vital signs reviewed. Pain control: Adequate - tizanidine added 11/19 for additional pain relief. Participating in PT. All questions and concerns addressed. Educated on use of incentive spirometer, ambulation, and hydration. Patient educated on post-operative restrictions and care. Addressed: Patient is to have NO KNEE MOTION. REMAIN IN TROM BRACE TO LEFT KNEE AT ALL TIMES - REMOVE FOR HYGIENE PURPOSES ONLY. NONWEIGHTBEARING TO LLE X 6 WEEKS. BONE STIMULATOR 3 HRS/DAY. Opsite placed. KEEP DRESSING INTACT UNTIL FIRST FOLLOW UP APPOINTMENT WITH [facility]. If greater than 50% saturated, notify office, remove dressing and place appropriate dressing back in place. Leave Zipline and charley intact. Opsite dressing is water resistant, not water-proof. OK to shower, but do not get dressing wet. D/C plan: ECF versus inpatient rehabilitation. Patient continues with significant concerns - social work aware and working on placement at this time. Appropriate for discharge from orthopedic perspective so long as above stated restrictions remain in place. Vital Signs Temp Pulse Resp BP Pulse Ox 11/20/17 15:35 98.8 F 78 18 161/69 93 11/20/17 11:11 98.5 F 73 16 135/77 93 11/20/17 07:41 97.4 F L 75 16 150/64 93 11/20/17 04:06 98.0 F 87 15 186/70 92 11/19/17 23:41 98.2 F 85 17 153/70 92 11/19/17 19:59 98.4 F 83 19 158/63 95 11/19/17 17:27 99.1 F 86 16 149/87 96 Intake and Output 11/20/17 11/20/17 11/20/17 07:59 15:59 23:59 Intake Total 240 / 240 Output Total 700 / 700 Balance -460 / -460 Intake: Oral 240 / 240 Output: Urine 500 / 500 Catheter 200 / 200 Other: Meal Breakfast Percent of Meal Consumed 100% All Lab Results (24 Hours) 11/20/17 Range/Units 00:44 Hgb 9.0 L D (11.5-15.4) g/dL Hct 27.5 L (35.3-44.9) %
[2017-11-20] MEDS ORDERED: *HR* LORazepam 2 MG/ML VIAL IVP PRN (19:39)
[2017-11-21 01:17] LABS: Basophils # 0.1 K/mcL (0.0-0.2); Basophils % 0.7 %; Eosinophils # 0.5 K/mcL (0.0-0.6); Hematocrit 28.8 % (35.3-44.9); Hemoglobin 9.3 g/dL (11.5-15.4); Immature Granulocytes % 0.5 % (0-4); Lymphocytes # 1.7 K/mcL (0.6-4.6); Mean Corpuscular HGB Conc 32.3 g/dL (31.6-35.5); Mean Platelet Volume 11.6 fL (9.4-12.4); Monocytes % 10.7 %; Neutrophils # 6.1 K/mcL (1.6-8.9); Platelet Count 186 K/mcL (140-400); Red Cell Distribution Width 12.9 % (11.5-14.5); Segmented Neutrophils % 65.1 %
[2017-11-21 01:35] LABS: BUN/Creatinine Ratio 38 (6-26); Blood Urea Nitrogen 25 mg/dL (8-23); Calcium 8.9 mg/dL (8.6-10.3); Carbon Dioxide 26 mEq/L (23-29); Chloride 101 mEq/L (98-107); Glucose 93 mg/dL (70-105); Osmolality,Calculated 282 (280-300); Potassium 4.5 mEq/L (3.5-5.1); Sodium 134 mEq/L (136-145); eGFR For Non-African Americans > 60 (> 60)
[2017-11-21] MEDS: *HR* OxyCODONE Immed Rel 5 MG TABLET PO PRN ×2 (04:16→20:46)
[2017-11-21] MEDS: *HR* Heparin 5,000 UNIT/ML VIAL SQ SCH ×2 (06:08→18:07)
--- NOTE | 2017-11-21 06:42 | Orthopedics Progress Note ---
Date of Encounter: 11/21/17 Time of Encounter: 06:41 Subjective Interval history: Patient was seen this morning postoperative confusion possible sun downing Afebrile vital signs stable. Operative extremity: Neurovascularly intact Dressing clean dry and intact Calves nontender Assessment and plan: Continue with postoperative care Hemoglobin 9.3 ortho stable for dc Objective Vital signs: Vital Signs Temp Pulse Resp BP Pulse Ox 11/21/17 00:23 97.9 F 79 16 159/74 95 11/20/17 19:31 98.2 F 86 17 147/67 95 11/20/17 15:35 98.8 F 78 18 161/69 93 11/20/17 11:11 98.5 F 73 16 135/77 93 11/20/17 07:41 97.4 F L 75 16 150/64 93 Intake and Output 11/20/17 11/20/17 11/21/17 15:59 23:59 07:59 Intake Total 240 / 240 Output Total 700 / 700 Balance -460 / -460 Intake: Oral 240 / 240 Output: Urine 500 / 500 Catheter 200 / 200 Other: Meal Breakfast Percent of Meal Consumed 100% Weight 70.9 kg Patient Weight 11/21/17 23:59 Weight 70.9 kg - Labs CBC & BMP: 11/21/17 00:40 11/21/17 00:40 Labs: Abnormal lab results RBC 3.00 M/mcL (3.82-4.97) L 11/21/17 00:40 Hgb 9.3 g/dL (11.5-15.4) L 11/21/17 00:40 Hct 28.8 % (35.3-44.9) L 11/21/17 00:40 Sodium 134 mEq/L (136-145) L 11/21/17 00:40 BUN 25 mg/dL (8-23) H 11/21/17 00:40 BUN/Creatinine Ratio 38 (6-26) H 11/21/17 00:40 - VTE Documentation of Mechanical Device: Venous foot pump, device Consult Discharge Plan - Plan Referrals: NONE,PCP [Primary Care Provider] -
[2017-11-21] MEDS: Ketorolac 30 MG/ML VIAL IVP PRN (10:31)
[2017-11-21] MEDS: amLODIPine 5 MG TABLET PO SCH (10:32)
[2017-11-21] MEDS: Cholecalciferol (D-3) 1,000 UNIT TABLET PO SCH (10:32)
--- NOTE | 2017-11-21 16:01 | Internal Med Progress Note ---
Hospitalist Progress Note - Encounter Date of Encounter: 11/21/17 Time of Encounter: 07:30 - Subjective Interval History: has no compliants, denies leg pain. reports that her pain is more controlled also her anxiety is better. She does not want to talk or be bothered today she would like to rest. denies N/v/D- is tolerating PO diet cenies CP, SOB, palpitations - Exam Vitals: Temp Pulse Resp BP Pulse Ox 98.4 F 83 17 163/63 93 11/21/17 11:03 11/21/17 11:03 11/21/17 11:03 11/21/17 11:03 11/21/17 11:03 Exam: General: Patient is alert, not in distress, eating breakfast Head: atraumatic, normocephalic, Eye: normal appearance, PERRL, no scleral icterus, no conjunctival injection ENT: mucous membranes moist, normal external ear exam Neck: normal inspection, trachea midline, full ROM, no carotid bruits Chest: normal inspection, symmetric chest rise Respiratory: Good respiratory effort. Bilateral breath sounds are clear Cardiovascular: Regular rate and rhythm. s1 and s2 ve systolic murmur Abdomen: BS +ve , soft nontender musculoskeletal: Spontaneously moving all extremities. + edema, has brace on Skin: warm, dry, intact. Neuro: Alert, speech is appropriate moving all extremities Psych: Patient's affect is normal - Assessment and Plan (1) Cayla-prosthetic femoral shaft fracture Current Visit: Yes Status: Acute Assessment and Plan: ER imaging study showed- mildly comminuted and anterolaterally displaced periprosthetic fracture of the mid left femur, extending to the distal component off the left total hip arthroplasty s/p ORIF for left femoral periprostatic fracture. orthopedecs on board will continue to follow recommendations Physical therapy and occupational therapy are recommending [facility] facility and case management is aware and working on discharge planning. continue pain control Patient is to have no knee motion Remain in trom brace to the left knee at all times remove for hygiene purposes only Non-weight bearing to left lower extremity for 6 weeks Bone stimulator 3 hours per day ON DVT prophylaxis as per Dr. Kim (2) Acute blood loss as cause of postoperative anemia Current Visit: Yes Status: Acute Assessment and Plan: CBC has been followed currently stable We will continue to monitor CBC Hemodynamically stable will start her on ferrous sulfate (3) Hypertension Current Visit: No Status: Chronic Assessment and Plan: BP well-controlled, continue to monitor on home medication (4) DVT prophylaxis Current Visit: Yes Status: Acute Assessment and Plan: on s.c Heparin; as per Orthopedics recommendations (5) Heart murmur Current Visit: Yes Status: Chronic Assessment and Plan: Echocardiogram shows preserved EF, moderate-severe concentric LVH, mild- moderate AR, moderately calcified aortic valve leaflets, mild LVOT obstruction. (6) Anxiety Current Visit: Yes Status: Chronic Assessment and Plan: 11/16/17- IMPRESSION: No acute intracranial abnormality. start PRN Hydroxyzine for anxiety; continue Citalopram; DVT Prophylaxis: On heparin subcutaneous - Time Spent with Patient Total time spent is greater than 50% in coordination of care (as documented) at patient's floor/unit and/or counseling patient: Plan of Care Discussed with: patient Internal Medicine: Result - Labs CBC & Chem 7: 11/21/17 00:40 11/21/17 00:40 Labs: Short CBC 11/21/17 Range/Units 00:40 WBC 9.4 (4.3-11.1) K/mcL Hgb 9.3 L (11.5-15.4) g/dL Hct 28.8 L (35.3-44.9) % Plt Count 186 (140-400) K/mcL Neutrophils # 6.1 (1.6-8.9) K/mcL BMP 11/21/17 00:40 Sodium 134 L Potassium 4.5 Chloride 101 Carbon Dioxide 26 BUN 25 H Creatinine 0.65 Glucose 93 Calcium 8.9 - ABG Interpretation ABG results: PT/INR, D-dimer PT 11.8 Seconds (9.4-12.1) 11/17/17 04:28 - VTE Documentation of Mechanical Device: Venous foot pump, device Consult Discharge Plan - Plan Referrals: NONE,PCP [Primary Care Provider] - (3) Hypertension Qualifiers: Hypertension type: essential hypertension Qualified Code(s): I10 - Essential (primary) hypertension
--- NOTE | 2017-11-21 16:21 | Event Note ---
Date of Encounter: 11/21/17 Time of Encounter: 14:00 POD#3 s/p Date of procedure: 11/18/17 Pre-op diagnosis: Displaced periprosthetic left femur fracture Post-op diagnosis: same Procedure: Left open reduction internal fixation periprosthetic femur fracture Procedure performed by Dr. Kim. PCR - Patient seen at bedside. Alert and oriented x person, place. Patient continues to have intermittent spurts of agitation regarding orientation to time and events. She is improved in her orientation today, though still not oriented to time. Patient resting in chair at bedside. Incision clean dry and intact. Dressings intact. TROM brace in place to left lower extremity. No calf tenderness to bilateral lower extremities. She is neurovascularly intact to bilateral lower extremities. Labwork and medications reviewed. Vital signs reviewed. Pain control: Adequate - tizanidine added 11/19 for additional pain relief. Participating in PT. All questions and concerns addressed. Educated on use of incentive spirometer, ambulation, and hydration. Patient educated on post-operative restrictions and care. Addressed: Patient is to have NO KNEE MOTION. REMAIN IN TROM BRACE TO LEFT KNEE AT ALL TIMES - REMOVE FOR HYGIENE PURPOSES ONLY. NONWEIGHTBEARING TO LLE X 6 WEEKS. BONE STIMULATOR 3 HRS/DAY. Opsite placed. KEEP DRESSING INTACT UNTIL FIRST FOLLOW UP APPOINTMENT WITH [facility]. If greater than 50% saturated, notify office, remove dressing and place appropriate dressing back in place. Leave Zipline and charley intact. Opsite dressing is water resistant, not water-proof. OK to shower, but do not get dressing wet. D/C plan: ECF versus inpatient rehabilitation. Appropriate for discharge from orthopedic perspective so long as above stated restrictions remain in place. Vital Signs Temp Pulse Resp BP Pulse Ox 11/21/17 11:03 98.4 F 83 17 163/63 93 11/21/17 07:45 97.7 F 79 19 157/98 92 11/21/17 00:23 97.9 F 79 16 159/74 95 11/20/17 19:31 98.2 F 86 17 147/67 95 Intake and Output 11/21/17 11/21/17 11/21/17 07:59 15:59 23:59 Intake Total 590 / 590 Output Total 400 / 400 Balance -400 / -400 590 / 590 Intake: Oral 590 / 590 Output: Straight Cath 400 / 400 Other: Meal Lunch Percent of Meal Consumed 75% Stool Size Small Stool Consistency soft Stool Color Brown Weight 70.9 kg Patient Weight 11/21/17 23:59 Weight 70.9 kg Short CBC 11/21/17 Range/Units 00:40 WBC 9.4 (4.3-11.1) K/mcL Hgb 9.3 L (11.5-15.4) g/dL Hct 28.8 L (35.3-44.9) % Plt Count 186 (140-400) K/mcL Neutrophils # 6.1 (1.6-8.9) K/mcL BMP 11/21/17 Range/Units 00:40 Sodium 134 L (136-145) mEq/L Potassium 4.5 (3.5-5.1) mEq/L Chloride 101 (98-107) mEq/L Carbon Dioxide 26 (23-29) mEq/L BUN 25 H (8-23) mg/dL Creatinine 0.65 (0.60-1.20) mg/dL Glucose 93 (70-105) mg/dL Calcium 8.9 (8.6-10.3) mg/dL
[2017-11-21] MEDS: traMADol 50 MG TABLET PO PRN (18:11)
[2017-11-22 00:53] LABS: Basophils # 0.1 K/mcL (0.0-0.2); Basophils % 0.7 %; Eosinophils # 0.4 K/mcL (0.0-0.6); Eosinophils % 4.1 %; Hematocrit 30.3 % (35.3-44.9); Hemoglobin 9.9 g/dL (11.5-15.4); Immature Granulocytes % 1.2 % (0-4); Lymphocytes # 1.7 K/mcL (0.6-4.6); Lymphocytes % 16.9 %; Mean Corpuscular HGB Conc 32.7 g/dL (31.6-35.5); Mean Corpuscular Hemoglobin 31.1 pg (28.0-33.3); Mean Corpuscular Volume 95.3 fL (83.0-100.0); Mean Platelet Volume 10.7 fL (9.4-12.4); Monocytes # 0.9 K/mcL (0.0-1.3); Monocytes % 9.1 %; Neutrophils # 6.7 K/mcL (1.6-8.9); Platelet Count 266 K/mcL (140-400); Red Blood Count 3.18 M/mcL (3.82-4.97); Red Cell Distribution Width 12.3 % (11.5-14.5)
[2017-11-22 01:09] LABS: BUN/Creatinine Ratio 35 (6-26); Blood Urea Nitrogen 23 mg/dL (8-23); Calcium 8.9 mg/dL (8.6-10.3); Carbon Dioxide 27 mEq/L (23-29); Chloride 103 mEq/L (98-107); Glucose 125 mg/dL (70-105); Osmolality,Calculated 275 (280-300); Potassium 4.3 mEq/L (3.5-5.1); Sodium 130 mEq/L (136-145); eGFR For Non-African Americans > 60 (> 60)
[2017-11-22] MEDS: *HR* OxyCODONE Immed Rel 5 MG TABLET PO PRN ×2 (04:15→14:29)
[2017-11-22] MEDS: *HR* Heparin 5,000 UNIT/ML VIAL SQ SCH (04:17)
[2017-11-22] MEDS: amLODIPine 5 MG TABLET PO SCH (08:02)
[2017-11-22] MEDS: Cholecalciferol (D-3) 1,000 UNIT TABLET PO SCH (08:03)
[2017-11-22] MEDS: traMADol 50 MG TABLET PO PRN (08:07)
--- NOTE | 2017-11-22 08:21 | Orthopedics Progress Note ---
Date of Encounter: 11/22/17 Time of Encounter: 08:21 Subjective Interval history: Patient was seen this morning oriented this morning significantly less confusion Afebrile vital signs stable. Operative extremity: Neurovascularly intact Dressing clean dry and intact Calves nontender Assessment and plan: Continue with postoperative care Hematocrit 30 stable for dc Objective Vital signs: Vital Signs Temp Pulse Resp BP Pulse Ox 11/22/17 07:08 98.1 F 75 14 173/70 93 11/22/17 04:06 98.2 F 78 16 177/68 94 11/21/17 21:27 94 11/21/17 19:05 98.1 F 88 16 161/70 94 11/21/17 11:03 98.4 F 83 17 163/63 93 Intake and Output 11/21/17 11/22/17 11/22/17 23:59 07:59 15:59 Output Total 750 / 750 550 / 550 Balance -750 / -750 -550 / -550 Output: Urine 750 / 750 550 / 550 Other: Weight 70.1 kg Patient Weight 11/22/17 23:59 Weight 70.1 kg - Labs CBC & BMP: 11/22/17 00:05 11/22/17 00:05 Labs: Abnormal lab results RBC 3.18 M/mcL (3.82-4.97) L 11/22/17 00:05 Hgb 9.9 g/dL (11.5-15.4) L 11/22/17 00:05 Hct 30.3 % (35.3-44.9) L 11/22/17 00:05 Sodium 130 mEq/L (136-145) L 11/22/17 00:05 BUN/Creatinine Ratio 35 (6-26) H 11/22/17 00:05 Glucose 125 mg/dL (70-105) H 11/22/17 00:05 Calculated Osmolality 275 (280-300) L 11/22/17 00:05 - VTE Documentation of Mechanical Device: Venous foot pump, device Consult Discharge Plan - Plan Referrals: NONE,PCP [Primary Care Provider] -
--- NOTE | 2017-11-22 11:23 | Internal Med Progress Note ---
Hospitalist Progress Note - Encounter Date of Encounter: 11/22/17 Time of Encounter: 08:00 - Subjective Interval History: has no compliants, denies leg pain. has been getting up to chair with assistance. reports that her strength has gotten better. denies N/v/D- is tolerating PO diet Denies CP, SOB, palpitations - Exam Vitals: Temp Pulse Resp BP Pulse Ox 98.1 F 75 14 173/70 93 11/22/17 07:08 11/22/17 07:08 11/22/17 07:08 11/22/17 07:08 11/22/17 07:08 Exam: General: Patient is alert, not in distress, eating breakfast Head: atraumatic, normocephalic, Eye: normal appearance, PERRL, no scleral icterus, no conjunctival injection ENT: mucous membranes moist, normal external ear exam Neck: normal inspection, trachea midline, full ROM, no carotid bruits Chest: normal inspection, symmetric chest rise Respiratory: Good respiratory effort. Bilateral breath sounds are clear Cardiovascular: Regular rate and rhythm. s1 and s2 ve systolic murmur Abdomen: BS +ve , soft nontender musculoskeletal: Spontaneously moving all extremities. + edema, has brace on Skin: warm, dry, intact. Neuro: Alert, speech is appropriate moving all extremities Psych: Patient's affect is normal - Assessment and Plan (1) Cayla-prosthetic femoral shaft fracture Current Visit: Yes Status: Acute Assessment and Plan: ER imaging study showed- mildly comminuted and anterolaterally displaced periprosthetic fracture of the mid left femur, extending to the distal component off the left total hip arthroplasty s/p ORIF for left femoral periprostatic fracture. orthopedecs on board will continue to follow recommendations Physical therapy and occupational therapy are recommending snf facility and case management is aware and working on discharge planning. continue pain control Patient is to have no knee motion Remain in trom brace to the left knee at all times remove for hygiene purposes only Non-weight bearing to left lower extremity for 6 weeks Bone stimulator 3 hours per day ON DVT prophylaxis as per Dr. Kim (2) Acute blood loss as cause of postoperative anemia Current Visit: Yes Status: Acute Assessment and Plan: CBC has been followed currently stable We will continue to monitor CBC Hemodynamically stable will start her on ferrous sulfate (3) Hypertension Current Visit: No Status: Chronic Assessment and Plan: BP well-controlled, continue to monitor on home medication (4) DVT prophylaxis Current Visit: Yes Status: Acute Assessment and Plan: on s.c Heparin; as per Orthopedics recommendations (5) Heart murmur Current Visit: Yes Status: Chronic Assessment and Plan: Echocardiogram shows preserved EF, moderate-severe concentric LVH, mild- moderate AR, moderately calcified aortic valve leaflets, mild LVOT obstruction. (6) Anxiety Current Visit: Yes Status: Chronic Assessment and Plan: Ct head 11/16/17- IMPRESSION: No acute intracranial abnormality. start PRN Hydroxyzine for anxiety; continue Citalopram; DVT Prophylaxis: as above - Time Spent with Patient Total time spent is greater than 50% in coordination of care (as documented) at patient's floor/unit and/or counseling patient: Plan of Care Discussed with: patient Internal Medicine: Result - Labs CBC & Chem 7: 11/22/17 00:05 11/22/17 00:05 Labs: Short CBC 11/22/17 Range/Units 00:05 WBC 9.8 (4.3-11.1) K/mcL Hgb 9.9 L (11.5-15.4) g/dL Hct 30.3 L (35.3-44.9) % Plt Count 266 (140-400) K/mcL Neutrophils # 6.7 (1.6-8.9) K/mcL BMP 11/22/17 00:05 Sodium 130 L Potassium 4.3 Chloride 103 Carbon Dioxide 27 BUN 23 Creatinine 0.66 Glucose 125 H Calcium 8.9 - ABG Interpretation ABG results: PT/INR, D-dimer PT 11.8 Seconds (9.4-12.1) 11/17/17 04:28 - VTE Documentation of Mechanical Device: Venous foot pump, device Consult Discharge Plan - Plan Referrals: NONE,PCP [Primary Care Provider] - (3) Hypertension Qualifiers: Hypertension type: essential hypertension Qualified Code(s): I10 - Essential (primary) hypertension
--- NOTE | 2017-11-22 12:39 | Event Note ---
Date of Encounter: 11/22/17 Time of Encounter: 12:39 POD#4 s/p Date of procedure: 11/18/17 Pre-op diagnosis: Displaced periprosthetic left femur fracture Post-op diagnosis: same Procedure: Left open reduction internal fixation periprosthetic femur fracture Procedure performed by Dr. Kim. PCR - Patient seen at bedside. She is on beside commode - wishes to speak with me. States had a bowel movement. Alert and oriented x person, place. Dressing clean, dry, and intact. TROM brace in place to left lower extremity. Labwork and medications reviewed. Vital signs reviewed. Pain control: Adequate - tizanidine added 11/19 for additional pain relief. Participating in PT. All questions and concerns addressed. Educated on use of incentive spirometer, ambulation, and hydration. Patient educated on post-operative restrictions and care. Addressed: Patient is to have NO KNEE MOTION. REMAIN IN TROM BRACE TO LEFT KNEE AT ALL TIMES - REMOVE FOR HYGIENE PURPOSES ONLY. NONWEIGHTBEARING TO LLE X 6 WEEKS. BONE STIMULATOR 3 HRS/DAY. Opsite placed. KEEP DRESSING INTACT UNTIL FIRST FOLLOW UP APPOINTMENT WITH [facility]. If greater than 50% saturated, notify office, remove dressing and place appropriate dressing back in place. Leave Zipline and charley intact. Opsite dressing is water resistant, not water-proof. OK to shower, but do not get dressing wet. D/C plan: ECF - Appropriate for discharge from orthopedic perspective so long as above stated restrictions remain in place.
--- NOTE | 2017-11-22 13:36 | Discharge Summary ---
- NOTES TO OUTPATIENT PROVIDER Notes to Outpatient Provider: follow with orthopedics. follow cbc, bmp saturday. Orders not resulted at time of discharge: Pending orders 11/18/17 15:28 PRBC [Red Blood Cells] [BBK] Stat Type and Screen [BBK] Stat 11/18/17 16:25 XR femur LT [XR] Routine 11/23/17 04:00 BMP [Basic Metabolic Panel] AM 0400 Complete Blood Count [HEME] AM 0400 Date of Encounter: 11/22/17 Time of Encounter: 13:29 - Discharge Diagnosis (1) Cayla-prosthetic femoral shaft fracture Priority: Primary Status: Acute (2) Acute blood loss as cause of postoperative anemia Priority: Secondary Status: Acute (3) Hypertension Priority: Secondary Status: Chronic Qualifiers: Hypertension type: essential hypertension Qualified Code(s): I10 - Essential (primary) hypertension (4) DVT prophylaxis Priority: Secondary Status: Acute (5) Heart murmur Priority: Secondary Status: Chronic (6) Anxiety Priority: Secondary Status: Chronic Hospital course: Ms. Kelly is a 82 year old female with multiple orthopedic surgeries including hip, knee, shoulder replacements, presented to the outside hospital ED after an episode of fall. In the outside hospital ED, she was afebrile and hemodynamically stable. Labs and radiological studies from the ED reviewed, notable for mildly comminuted and anteriolaterally displaced periprosthetic fracture of the mid left femur, extending to the distal component off the left total hip arthroplasty. CT head showed posterior scalp hematoma. Chest x-ray unremarkable. Lab works were in normal limits including CBC, BMP, INR, and troponin. She sees Dr. Kim for her L hip issue and wanted to be transferred to [facility] for further care. while at [facility] orthopedics were consulted and she is s/ p Left open reduction internal fixation periprosthetic femur fracture. During hospitalization she had some anxiety and confusion. CT head was done results below. In addition she had postoperative anemia. H&H was followed and stable. She was cleared by orthopedics to be discharged. Physical therapy and rehabilitation was consulted and recommendations followed. Mental status improved to baseline. She was started on DVT prophylaxis post surgery as per Dr. Kim's recommendations on ASA 325 mg Qday . Patient is to have NO KNEE MOTION. REMAIN IN TROM BRACE TO LEFT KNEE AT ALL TIMES - REMOVE FOR HYGIENE PURPOSES ONLY. NONWEIGHTBEARING TO LLE X 6 WEEKS. BONE STIMULATOR 3 HRS/DAY. Opsite placed. KEEP DRESSING INTACT UNTIL FIRST FOLLOW UP APPOINTMENT WITH [facility]. If greater than 50% saturated, notify office, remove dressing and place appropriate dressing back in place. Leave Zipline and charley intact. Opsite dressing is water resistant, not water-proof. OK to shower, but do not get dressing wet. Ct head IMPRESSION: No acute intracranial abnormality. TTE Impressions: LVEF 60-65%. Moderate-severe concentric left ventricular hypertrophy. Increased resting LVOT gradients suggesting mild obstruction, PG 20 mmHg. Mild left ventricular diastolic dysfunction. Normal right ventricular structure and function. Mild to moderate turbulent aortic regurgitation. Moderately calcified aortic valve leaflets. Aortic valve area unable to be calculated by Continuity due to elevated LVOT gradient. Mild to moderate pulmonic regurgitation. No pulmonary hypertension. Discharge discussed with: patient, nurse - Time Spent with Patient Total time spent providing and/or coordinating discharge services: Less than 30 minutes (20) - Discharge Medications Prescriptions: Aspirin 325 mg PO DAILY #30 tablet Omeprazole [PriLOSEC] 20 mg PO DAILY #30 cap Home Medications: Cholecalciferol (D-3) [Vitamin D] 5,000 unit PO DAILY 11/16/17 [History] Citalopram Hydrobromide [Citalopram HBr] 20 mg PO DAILY 11/16/17 [History] Tramadol HCl [Ultram] 100 mg PO TID PRN 11/16/17 [History] amLODIPine [Norvasc] 5 mg PO DAILY 11/16/17 [History] Aspirin 325 mg PO DAILY #30 tablet 11/22/17 [Rx] Omeprazole [PriLOSEC] 20 mg PO DAILY #30 cap 11/22/17 [Rx] Allergies/Adverse Reactions: 3 Allergy/AdvReac Type Severity Reaction Status Date / Time No Known Allergies Allergy Verified 08/16/17 12:49 Date of admission: 11/18/17 11:22 Primary care physician: PCP NONE Consults: 11/16/17 09:18 Consult to Orthopedic Surgery [CONS] Routine Consulting Provider: [facility] Reason for Consult: comminuted and displaced periprosthetic fracture of mid left femur, pt of Dr. Kim. Called from [place] ED Call Completed: Yes 11/16/17 10:02 Consult to Pastoral Services [CONS] Routine Comment: Consult to [employer] [CONS] Routine Reason for SW Consult: d/c planning 11/18/17 18:53 Consult to Occupational Therapy [CONS] Routine Comment: Evaluate, develop and implement POC Reason for Consult: non weight bearns Does patient have active BEDREST order?: No Is patient medically & hemodynamically stable?: Yes Patient assessed for mobility or mobilized this visit?: Yes Consult to Orthopedic Navigator [CONS] [CONS] Routine Consult to Physical Therapy [CONS] Routine Comment: Evaluate, develop and implement POC Reason for Consult: postop Does patient have active BEDREST order?: Yes Is patient medically & hemodynamically stable?: No Patient assessed for mobility or mobilized this visit?: Yes RT Post Op Consult [CONS] Routine - Constitutional Vitals: Temp Pulse Resp BP Pulse Ox 98.0 F 73 14 154/80 92 11/22/17 11:29 11/22/17 11:29 11/22/17 11:29 11/22/17 11:29 11/22/17 11:29 Exam: General: Patient is alert, not in distress, eating breakfast Head: atraumatic, normocephalic, Eye: normal appearance, PERRL, no scleral icterus, no conjunctival injection ENT: mucous membranes moist, normal external ear exam Neck: normal inspection, trachea midline, full ROM, no carotid bruits Chest: normal inspection, symmetric chest rise Respiratory: Good respiratory effort. Bilateral breath sounds are clear Cardiovascular: Regular rate and rhythm. s1 and s2 ve systolic murmur Abdomen: BS +ve , soft nontender musculoskeletal: Spontaneously moving all extremities. + edema, has brace on Skin: warm, dry, intact. Neuro: Alert, speech is appropriate moving all extremities Psych: Patient's affect is normal - Patient Status Disposition: Transfer SNF Condition: Fair Functional capacity at discharge: uses cane/walker Overall status at discharge: patient is progressing back to baseline - Discharge Instructions Instructions: Anemia (GEN) Follow Up With: NONE,PCP [Primary Care Provider] - Chito Kim MD [Partnered Physician] - - Diet and Activity Activity: as per physical therapy Diet: advance to your usual diet
--- NOTE | 2017-11-22 13:52 | Physician Discharge Referral ---
ExtendedCare Referral Info Transfer To: [facility] Provider in Charge: kelby frias Institutional Level of Care: Skilled - Diagnosis (1) Cayla-prosthetic femoral shaft fracture Priority: Primary Status: Acute (2) Acute blood loss as cause of postoperative anemia Priority: Secondary Status: Acute (3) Hypertension Priority: Secondary Status: Chronic (4) DVT prophylaxis Priority: Secondary Status: Acute (5) Heart murmur Priority: Secondary Status: Chronic (6) Anxiety Priority: Secondary Status: Chronic - Transfer Medications Prescriptions: Aspirin 325 mg PO DAILY #30 tablet Omeprazole [PriLOSEC] 20 mg PO DAILY #30 cap Home Medications: Cholecalciferol (D-3) [Vitamin D] 5,000 unit PO DAILY 11/16/17 [History] Citalopram Hydrobromide [Citalopram HBr] 20 mg PO DAILY 11/16/17 [History] Tramadol HCl [Ultram] 100 mg PO TID PRN 11/16/17 [History] amLODIPine [Norvasc] 5 mg PO DAILY 11/16/17 [History] Aspirin 325 mg PO DAILY #30 tablet 11/22/17 [Rx] Omeprazole [PriLOSEC] 20 mg PO DAILY #30 cap 11/22/17 [Rx] Allergies/Adverse Reactions: 3 Allergy/AdvReac Type Severity Reaction Status Date / Time No Known Allergies Allergy Verified 08/16/17 12:49 - Respiratory Orders Smoking Cessation: Smoking cessation has been advised. For more information, call the [employer] Quit Line at 6-679-PLXR-NOW. - Rehabiliation Orders Rehab Potential: Fair Rehab Orders: Evaluation for Physical Therapy ( The pt did well with transfers as noted and required MIN verbal cues to maintain LLE NWB restrictions, and was instructed to hold her foot up off the floor to avoid putting weight on the LLE. The pt did well with the ex noted and was able to perform AROM with each LLE to improve strength/endurance. The pt demonstrated good left ankle ROM with the gastroc/soleus stretching and PROM with ankle inversion/eversion and did not having any pain with the manual stretching/PROM. The pt stated her pain was at a 7/10 prior to performing the transfer activities, and state that after the transfer her pain increased slightly to a 8 /10 with the LLE.) CERTIFICATION: I certify that the transfer of the above named patient to an Extended Care Facility is necessary for the continuing treatment of the diagnosis listed. The above information is true and accurate reflection of patient's current condition. Confidential - Redisclosure prohibited without a patient's written consent.
[2017-11-22 15:38] VITALS: BP 181/69
== END 2017-11-22 16:58 | DRG 480 ==
LOC: 3NENU → SUATTDRO 08:39
PROVIDERS: ADMIT Family Medicine; ATTEND Internal Medicine

== ENCOUNTER 2019-01-09 17:39 | Inpatient (IN) ==
[2019-01-09] MEDS ORDERED: traMADol 50 MG TABLET PO STA ×2 (19:05→19:16)
--- NOTE | 2019-01-09 20:10 | Emergency Department Note ---
Disposition Clinical Impression: Anemia Qualifiers: Anemia type: unspecified type Qualified Code(s): D64.9 - Anemia, unspecified Disposition: Admitted As Inpatient Time of Disposition: 21:30 General Adult HPI - General Chief complaint: ED GI Bleed Stated complaint: "low hgb,GI bleed" Time Seen by Provider: 01/09/19 17:55 Source: patient Mode of arrival: ambulatory Limitations: no limitations Nursing Notes Reviewed: Yes Vital Signs Reviewed: Yes - History of Present Illness HPI Narrative: 83F with PMHx of HTN and HLD presents to the ED with her daughter with concerns for anemia and GI bleed. The patient was seen at an OSH for shortness of breath several days ago and was discharged. The patients PCP received her labs today and noticed she was newly anemic and became concerned and told the family to bring her in for admission for GI bleed workup. The patient has noticed bloody stools recently but denies blood thinner use or previous history of GI bleed. She admits to abdominal pain but denies N/V/D. She denies chest pain and shortness of breath at this time. She does not know when her last colonoscopy was. - Related Data Home Medications Medication Instructions Recorded Confirmed Cholecalciferol (D-3) [Vitamin D] 5,000 unit PO DAILY 11/16/17 11/16/17 Citalopram Hydrobromide 20 mg PO DAILY 11/16/17 11/16/17 [Citalopram HBr] Tramadol HCl [Ultram] 100 mg PO TID PRN 11/16/17 11/16/17 amLODIPine [Norvasc] 5 mg PO DAILY 11/16/17 11/16/17 Previous Rx's Medication Instructions Recorded Aspirin 325 mg PO DAILY #30 tablet 11/22/17 Omeprazole [PriLOSEC] 20 mg PO DAILY #30 cap 11/22/17 Losartan [Cozaar] 25 mg PO DAILY #10 tablet 02/26/18 Allergies Allergy/AdvReac Type Severity Reaction Status Date / Time acetaminophen [From Vicodin] AdvReac Nausea Verified 03/25/18 12:35 hydrocodone [From Vicodin] AdvReac Nausea Verified 03/25/18 12:35 pregabalin [From Lyrica] AdvReac Dizziness Verified 03/25/18 12:35 All systems ED: reviewed and negative except as stated. Review of Systems: As Per HPI Constitutional: Reports: weakness. Denies: fever, chills Eyes: Denies: vision change Cardiovascular: Reports: dyspnea on exertion. Denies: chest pain, palpitations Respiratory: Denies: cough, dyspnea, wheezes Gastrointestinal: Reports: abdominal pain, hematochezia. Denies: nausea, vomiting, diarrhea Genitourinary: Denies: dysuria, hematuria Musculoskeletal: Denies: back pain Neurological: Denies: headache Endocrine: Reports: fatigue Past Medical History - Past Medical History Attestation: Yes The following information was validated with the patient. Source: patient Medical history: Reports: hyperlipidemia, hypertension, other Psychiatric history: Reports: anxiety - Social History Smoking Status: Never smoker Smokeless Tobacco Status: No Alcohol use: Reports: none Drug use: Reports: none Physical Exam - General Limitations: no limitations General appearance: alert, in no apparent distress - Head Head exam: atraumatic, normocephalic - Eye Eye exam: Present: normal appearance, EOMI, other (conjunctival pallor) - Chest Chest inspection: Present: normal inspection. Absent: tenderness, rash - Respiratory Respiratory exam: Present: normal lung sounds bilaterally. Absent: wheezes - Cardiovascular Cardiovascular exam: Present: regular rate, normal rhythm - Abdominal Exam Abdominal exam: Present: soft, tenderness. Absent: distention, guarding, rebound, rigidity Abdominal tenderness: Present: epigastrium, mild - Extremities Exam Extremities exam: Present: normal inspection. Absent: tenderness, pedal edema - Neurological Exam Neurological exam: Present: alert, oriented X3 - Psychiatric Psychiatric exam: Present: normal affect, normal mood - Skin Skin exam: Present: warm, dry, intact, pallor Course Vital Signs Temperature 98.6 F 01/09/19 17:41 Pulse Rate 65 01/09/19 17:41 Respiratory Rate 18 01/09/19 17:41 Blood Pressure 132/73 01/09/19 17:41 O2 Sat by Pulse Oximetry 97 01/09/19 17:41 Temperature 98.6 F 01/09/19 17:41 Pulse Rate 70 01/09/19 20:26 Respiratory Rate 18 01/09/19 20:26 Blood Pressure 173/77 01/09/19 20:26 O2 Sat by Pulse Oximetry 100 01/09/19 20:26 Oxygen Delivery Oxygen Delivery Room Air Medical Decision Making - MDM Narrative Medical decision making narrative: Patient presents with concerns for low hemoglobin and GI bleed. We will obtain EKG, chest x-ray, basic labs, type and screen and a urinalysis. 1939 - been significant delay in obtaining blood work from the patient. Labs have been sent at this time and are pending. 2049 - patient's labs are significant for anemia of 6.8. EKG and chest x-ray show no significant abnormalities. One unit of packed red blood cells has been ordered for transfusion. The patient will be admitted for an anemia workup. 2128 - pt has been accepted by Dr. Correa - Medical Records Medical records reviewed: Yes I reviewed the patient's medical records. - Lab Data Lab results reviewed: Yes I reviewed the patient's lab results. Result diagrams: 01/09/19 20:03 01/09/19 20:03 Lab Results 01/09/19 01/09/19 01/09/19 Range/Units 20:03 20:03 20:03 WBC 8.3 (4.3-11.1) K/mcL RBC 2.42 L (3.82-4.97) M/mcL Hgb 6.8 L (11.5-15.4) g/dL Hct 22.4 L (35.3-44.9) % MCV 92.6 (83.0-100.0) fL MCH 28.1 (28.0-33.3) pg MCHC 30.4 L (31.6-35.5) g/dL RDW 17.1 H (11.5-14.5) % Plt Count 244 (140-400) K/mcL MPV 10.8 (9.4-12.4) fL Immature Gran % 0.6 (0-4) % Seg Neutrophils % 74.7 % Lymphocytes % 14.2 % Monocytes % 7.8 % Eosinophils % 2.3 % Basophils % 0.4 % Neutrophils # 6.2 (1.6-8.9) K/mcL Lymphocytes # 1.2 (0.6-4.6) K/mcL Monocytes # 0.7 (0.0-1.3) K/mcL Eosinophils # 0.2 (0.0-0.6) K/mcL Basophils # 0.0 (0.0-0.2) K/mcL PT 11.2 (9.4-12.1) Seconds INR 1.0 APTT 29.2 (26.0-36.0) Seconds Sodium 139 (136-145) mEq/L Potassium 3.6 (3.5-5.1) mEq/L Chloride 109 H (98-107) mEq/L Carbon Dioxide 25 (23-29) mEq/L BUN 20 (8-23) mg/dL Creatinine 0.69 (0.60-1.20) mg/dL Est GFR ( Amer) > 60 (> 60) Est GFR (Non-Af Amer) > 60 (> 60) BUN/Creatinine Ratio 29 H (6-26) Glucose 101 (70-105) mg/dL Calculated Osmolality 291 (280-300) Lactic Acid (0.5-2.2) mmol/L Calcium 9.0 (8.6-10.3) mg/dL Total Bilirubin 0.2 L (0.3-1.0) mg/dL AST 10 L (13-39) Units/L ALT 7 (7-52) Units/L Alkaline Phosphatase 83 (34-104) Units/L Serum Total Protein 5.7 L (6.4-8.9) g/dL Albumin 3.6 (3.5-5.7) g/dL Globulin 2.1 L (2.4-3.5) g/dL Albumin/Globulin Ratio 1.7 (1.1-2.2) Urine Color (Yellow) Urine Clarity (Clear) Urine pH (5.0-8.0) pH Units Ur Specific [place] (1.010-1.025) Urine Protein (Neg-Trace) mg/dL Urine Glucose (UA) (Normal) mg/dL Urine Ketones (Negative) mg/dL Urine Blood (Negative) Urine Nitrite (Negative) Urine Bilirubin (Negative) Urine Urobilinogen (Normal) mg/dL Ur Leukocyte Esterase (Negative) Urine Microscopic RBC (0-3) per hpf Urine Microscopic WBC (0-3) per hpf Ur Squamous Epith Cells (None-Few) per lpf Urine Bacteria (None-Few) per hpf Hyaline Casts (None-Few) per lpf Ur Culture Indicated? (NO) 01/09/19 01/09/19 Range/Units 20:03 20:26 WBC (4.3-11.1) K/mcL RBC (3.82-4.97) M/mcL Hgb (11.5-15.4) g/dL Hct (35.3-44.9) % MCV (83.0-100.0) fL MCH (28.0-33.3) pg MCHC (31.6-35.5) g/dL RDW (11.5-14.5) % Plt Count (140-400) K/mcL MPV (9.4-12.4) fL Immature Gran % (0-4) % Seg Neutrophils % % Lymphocytes % % Monocytes % % Eosinophils % % Basophils % % Neutrophils # (1.6-8.9) K/mcL Lymphocytes # (0.6-4.6) K/mcL Monocytes # (0.0-1.3) K/mcL Eosinophils # (0.0-0.6) K/mcL Basophils # (0.0-0.2) K/mcL PT (9.4-12.1) Seconds INR APTT (26.0-36.0) Seconds Sodium (136-145) mEq/L Potassium (3.5-5.1) mEq/L Chloride (98-107) mEq/L Carbon Dioxide (23-29) mEq/L BUN (8-23) mg/dL Creatinine (0.60-1.20) mg/dL Est GFR ( Amer) (> 60) Est GFR (Non-Af Amer) (> 60) BUN/Creatinine Ratio (6-26) Glucose (70-105) mg/dL Calculated Osmolality (280-300) Lactic Acid 1.3 (0.5-2.2) mmol/L Calcium (8.6-10.3) mg/dL Total Bilirubin (0.3-1.0) mg/dL AST (13-39) Units/L ALT (7-52) Units/L Alkaline Phosphatase (34-104) Units/L Serum Total Protein (6.4-8.9) g/dL Albumin (3.5-5.7) g/dL Globulin (2.4-3.5) g/dL Albumin/Globulin Ratio (1.1-2.2) Urine Color Yellow (Yellow) Urine Clarity Clear (Clear) Urine pH 5.5 (5.0-8.0) pH Units Ur Specific [place] 1.026 H (1.010-1.025) Urine Protein Trace (Neg-Trace) mg/dL Urine Glucose (UA) Normal (Normal) mg/dL Urine Ketones Negative (Negative) mg/dL Urine Blood Negative (Negative) Urine Nitrite Negative (Negative) Urine Bilirubin Negative (Negative) Urine Urobilinogen Normal (Normal) mg/dL Ur Leukocyte Esterase Small H (Negative) Urine Microscopic RBC 0-3 (0-3) per hpf Urine Microscopic WBC 5-15 H (0-3) per hpf Ur Squamous Epith Cells Many H (None-Few) per lpf Urine Bacteria None Seen (None-Few) per hpf Hyaline Casts None Seen (None-Few) per lpf Ur Culture Indicated? YES A (NO) - Radiology Data Radiology results reviewed: Yes I reviewed the patient's radiology results. - EKG Data EKG #1 EKG attestation: Yes I reviewed and interpreted this EKG. EKG results narrative: EKG obtained at 1845 on 01/09/2019 Heart rate 66 bpm, UT interval 191, QRS ratio 97, QTC 509, QTC 534 Sinus rhythm with 1 PVC. No signs of ST segment elevations or depressions. No other acute T-wave abnormalities. No significant changes when compared to previous EKG dated 02/26/2018. Attestation Statement - Attestation Attestation: I, Mich Aguilar, examined this patient and my medical decision-making was reviewed with the MEDICAL TRANSCRIPTION RADIOLOGY/PA/Advanced Practice Nurse/Resident Physician. I agree with the documented findings, disposition and treatment plan as described except to the extent set forth below. 83-year-old female presents emergency Department with concerns of weakness, anemia, GI bleeding. Patient was recently evaluated at [facility] for weakness and pain to the left lower extremity. Patient states the pain left lower extremity is chronic. She was given pain medication and then discharged from [facility] emergency department. Patient states the next day she developed melena and has had persistent liquid black stools over the past 4-5 days. Patient was called by her primary care provider who looked at the lab results and saw that her hemoglobin was significantly depleted and recommended she be evaluated emergency department for further evaluation. Patient does report that she is been increasingly weak and fatigued and short of breath with exertion over the past few days. Patient has a hemoglobin of 6.8 and emergency department today. Patient will be given transfusion of blood, she will be admitted to the hospitalist for further care and evaluation and likely endoscopy.
[2019-01-09 20:18] LABS: Basophils % 0.4 %; Eosinophils # 0.2 K/mcL (0.0-0.6); Eosinophils % 2.3 %; Hematocrit 22.4 % (35.3-44.9); Hemoglobin 6.8 g/dL (11.5-15.4); Immature Granulocytes % 0.6 % (0-4); Lymphocytes # 1.2 K/mcL (0.6-4.6); Lymphocytes % 14.2 %; Mean Corpuscular HGB Conc 30.4 g/dL (31.6-35.5); Mean Corpuscular Hemoglobin 28.1 pg (28.0-33.3); Mean Corpuscular Volume 92.6 fL (83.0-100.0); Mean Platelet Volume 10.8 fL (9.4-12.4); Monocytes # 0.7 K/mcL (0.0-1.3); Monocytes % 7.8 %; Neutrophils # 6.2 K/mcL (1.6-8.9); Platelet Count 244 K/mcL (140-400); Red Blood Count 2.42 M/mcL (3.82-4.97); Red Cell Distribution Width 17.1 % (11.5-14.5); Segmented Neutrophils % 74.7 %; White Blood Count 8.3 K/mcL (4.3-11.1)
[2019-01-09 20:25] LABS: Prothrombin Time 11.2 Seconds (9.4-12.1)
[2019-01-09 20:28] LABS: Activated Partial Thrombo Time 29.2 Seconds (26.0-36.0)
[2019-01-09 20:37] LABS: Bilirubin,Urine Negative (Negative); Blood,Urine Negative (Negative); Clarity,Urine Clear (Clear); Color,Urine Yellow (Yellow); Glucose,Urine (UA) Normal (Normal); Ketones,Urine Negative (Negative); Leukocyte Esterase,Urine Small (Negative); Nitrite,Urine Negative (Negative); PH,Urine 5.5 pH Units (5.0-8.0); Protein,Urine Trace mg/dL (Neg-Trace); Specific Gravity,Urine 1.026 (1.010-1.025); Urobilinogen,Urine Normal (Normal)
[2019-01-09 20:38] LABS: Alanine Aminotransferase 7 Units/L (7-52); Albumin 3.6 g/dL (3.5-5.7); Albumin/Globulin Ratio 1.7 (1.1-2.2); Alkaline Phosphatase 83 Units/L (34-104); Aspartate Amino Transferase 10 Units/L (13-39); BUN/Creatinine Ratio 29 (6-26); Bilirubin,Total 0.2 mg/dL (0.3-1.0); Blood Urea Nitrogen 20 mg/dL (8-23); Carbon Dioxide 25 mEq/L (23-29); Chloride 109 mEq/L (98-107); Globulin 2.1 g/dL (2.4-3.5); Glucose 101 mg/dL (70-105); Osmolality,Calculated 291 (280-300); Potassium 3.6 mEq/L (3.5-5.1); Sodium 139 mEq/L (136-145); Total Protein 5.7 g/dL (6.4-8.9); eGFR For African Americans > 60 (> 60); eGFR For Non-African Americans > 60 (> 60)
[2019-01-09 20:39] LABS: Bacteria,Urine None Seen per hpf (None-Few); Hyaline Casts,Urine None Seen per lpf (None-Few); RBC,Urine 0-3 per hpf (0-3); Squamous Epithelial Cell,Urine Many per lpf (None-Few)
[2019-01-10] MEDS ORDERED: Naloxone 0.4 MG/ML INJ IVP PRN
[2019-01-10] MEDS ORDERED: 0.9 % Sodium Chloride 250 ML ONE (00:36)
--- NOTE | 2019-01-10 01:10 | Internal Med History&Physical ---
Date of Encounter: 01/10/19 Time of Encounter: 00:15 Internal Medicine - H&P: HPI Chief complaint: GI bleed History of present illness: Ms. Kelly is a 83 year old female Patient presented to the emergency department with anemia. She was seen by her PCP, and had labs drawn. The results indicated that her hemoglobin was low, and the office contacted the patient and advised her to come to the emergency department for further evaluation. Patient had been admitted to an outside hospital for shortness of breath, but was discharged a few days ago. She also has a significant history of left hip replacement, that unfortunately requires revision as the components have been recalled. She is seen a orthopedic surgeon in [place] for this, and is scheduled to have the procedure next week. Patient has noticed blood in her stool, may have been black and tarry for the last several days. She has never had symptoms like this before. Emergency department vital signs within normal limits CBC notable for hemoglobin of 6.8, platelets 244. BNP unremarkable Lactic acid 1.3 Liver function tests within normal limits Urinalysis: Elevated specific gravity, negative nitrite, small leukocyte esterase, 5-15 white blood cells and many squamous cells. Chest x-ray was stable compared to previous. EKG: Sinus rhythm, rate 66, QTC [address] elevations. In the emergency department patient received a 100 mg dose of tramadol for her left hip pain. She was typed and screened and transfused 1 unit of red blood cells. She was admitted to the hospital for further management. Upon my evaluation, the patient is resting comfortably in the hospital bed in no acute distress. She denies chest pain, scalp pain, nausea, vomiting, diarrhea and constipation. She has had colonoscopies in the past, but does not recall her last one. Aside from her left hip pain she has no other complaints. She says she uses a wheelchair to get around because she cannot walk due to her left hip. She is a full code. Past Med Surg Social Fam HX - Past Medical History Medical history: hyperlipidemia, hypertension, other Psychiatric history: anxiety - Past Surgical History Additional surgical history: Shoulder Surgery x2. Back surgery x 2 - Social History Smoking Status: Never smoker Smokeless Tobacco Status: No Alcohol use: none Drug use: none - Family History Mother Hx Family Endocrine Disorder: Yes (DM) Hx Family Neurologic Disorders: Yes (alzheimers) Internal Medicine - H&P: Meds Cholecalciferol (D-3) [Vitamin D] 5,000 unit PO DAILY 11/16/17 [History] Citalopram Hydrobromide [Citalopram HBr] 20 mg PO DAILY 11/16/17 [History] Tramadol HCl [Ultram] 100 mg PO TID PRN 11/16/17 [History] amLODIPine [Norvasc] 5 mg PO DAILY 11/16/17 [History] Aspirin 325 mg PO DAILY #30 tablet 11/22/17 [Rx] Omeprazole [PriLOSEC] 20 mg PO DAILY #30 cap 11/22/17 [Rx] Losartan [Cozaar] 25 mg PO DAILY #10 tablet 02/26/18 [Rx] Allergy/AdvReac Type Severity Reaction Status Date / Time acetaminophen [From Vicodin] AdvReac Nausea Verified 03/25/18 12:35 hydrocodone [From Vicodin] AdvReac Nausea Verified 03/25/18 12:35 pregabalin [From Lyrica] AdvReac Dizziness Verified 03/25/18 12:35 All Systems PM: A 10-system review of systems was performed and is negative for pertinent findings except as documented above in the HPI. - Constitutional Vitals: Temp Pulse Resp BP Pulse Ox 98.1 F 71 14 155/65 94 01/10/19 01:03 01/10/19 01:03 01/10/19 01:03 01/10/19 01:03 01/10/19 01:03 General appearance: Present: cooperative, A&O X 3, pleasant, no acute distress, answers questions appropriately Exam: - - Head Head exam: Present: normal inspection - Eye Eye exam: Present: EOMI, normal appearance - Respiratory Respiratory exam: Present: CTAB. Absent: rales, respiratory distress, rhonchi, wheezes - Cardiovascular Cardiovascular exam: Present: systolic murmur. Absent: diastolic murmur, RRR Additional comments: Grade 2 systolic murmur - GI/Abdominal GI/Abdominal exam: Present: normal bowel sounds, soft. Absent: tenderness - Extremities Exam Extremities exam: Present: tenderness, warm, radial pulses palpable and symmetrical. Absent: calf tenderness, pedal edema Additional comments: Mild left hip tenderness with palpation - Back Exam Back exam: Absent: CVA tenderness (L), CVA tenderness (R), vertebral tenderness - Neurological Exam Neurological exam: Present: alert, no focal deficits, strengths equal and symetr throughout. Absent: altered, motor sensory deficit, facial droop, speech deficit - Skin Skin exam: Present: dry, normal color, pallor, warm Internal Med - H&P Results - Labs CBC & Chem 7: 01/09/19 20:03 01/09/19 20:03 Labs: Short CBC 01/09/19 Range/Units 20:03 WBC 8.3 (4.3-11.1) K/mcL Hgb 6.8 L (11.5-15.4) g/dL Hct 22.4 L (35.3-44.9) % Plt Count 244 (140-400) K/mcL Neutrophils # 6.2 (1.6-8.9) K/mcL BMP 01/09/19 20:03 Sodium 139 Potassium 3.6 Chloride 109 H Carbon Dioxide 25 BUN 20 Creatinine 0.69 Glucose 101 Calcium 9.0 Liver Function 01/09/19 Range/Units 20:03 Total Bilirubin 0.2 L (0.3-1.0) mg/dL AST 10 L (13-39) Units/L ALT 7 (7-52) Units/L Alkaline Phosphatase 83 (34-104) Units/L Albumin 3.6 (3.5-5.7) g/dL Urine 01/09/19 Range/Units 20:26 Urine Color Yellow (Yellow) Urine Clarity Clear (Clear) Urine pH 5.5 (5.0-8.0) pH Units Ur Specific [place] 1.026 H (1.010-1.025) Urine Protein Trace (Neg-Trace) mg/dL Urine Glucose (UA) Normal (Normal) mg/dL - Impressions ITS Impressions Chest X-Ray 01/09/19 18:51 IMPRESSION: Stable study showing moderate hiatal hernia. D/ / Renee Gallardo Cha, MD / Renee Gallardo Cha, MD Interpreting Provider: Renee Gallardo Cha, MD - Assessment and Plan (1) GI bleed Current Visit: Yes Status: Acute Assessment and plan: Patient has never had GI bleed before. Has been having dark stools for several days. Transfused 1 unit in the ER. Repeat CBC, continue to monitor hemoglobin Q6H. Transfuse if indicated Consult Endoscopy/colonoscopy in the morning Nothing by mouth Cardiac monitoring Qualifiers: GI bleed type/associated pathology: unspecified gastrointestinal hemorrhage type Qualified Code(s): K92.2 - Gastrointestinal hemorrhage, unspecified (2) Anemia Current Visit: Yes Status: Acute Assessment and plan: Likely secondary to GI bleed, previous results from last February demonstrated a hemoglobin of 12.0. Patient has been noticing dark stools for the last several days. Nothing by mouth Consult to endoscopy/colonoscopy in the morning Repeat CBC Transfuse if indicated Avoid NSAIDs/aspirin Qualifiers: Anemia type: unspecified type Qualified Code(s): D64.9 - Anemia, unspecified (3) Prolonged QT interval Current Visit: Yes Status: Acute Assessment and plan: Patient's QTC slightly elevated at 534, previous EKGs indicate a QTC of 413. No chest pain. Repeat EKG in the morning Cardiac telemetry (4) Left hip pain Current Visit: Yes Status: Acute Assessment and plan: Secondary to hip replacement which has recently been recalled. Patient has made arrangements for a replacement procedure to take place next week in [place], [place]. She has been taking tramadol at home. Pain management as needed Avoid NSAIDs due to GI bleed (5) Heart murmur Current Visit: No Status: Chronic Assessment and plan: Chronic. Echocardiogram from July of this year indicates mild to moderate aortic stenosis. Continue to monitor (6) DVT prophylaxis Current Visit: No Status: Acute Assessment and plan: SCDs - Time Spent With Patient Total time spent is greater than 50% in coordination of care (as documented) at patient's floor/unit and/or counseling patient: Greater than 35 minutes
[2019-01-10 01:22] LABS: Hematocrit 21.2 % (35.3-44.9); Hemoglobin 6.3 g/dL (11.5-15.4); Mean Corpuscular HGB Conc 29.7 g/dL (31.6-35.5); Mean Corpuscular Hemoglobin 27.4 pg (28.0-33.3); Mean Corpuscular Volume 92.2 fL (83.0-100.0); Platelet Count 225 K/mcL (140-400); Red Cell Distribution Width 16.8 % (11.5-14.5); White Blood Count 7.7 K/mcL (4.3-11.1)
[2019-01-10] MEDS ORDERED: 0.9 % Sodium Chloride 250 ML IVC SCH (01:45)
[2019-01-10 06:37] LABS: Hematocrit 29.6 % (35.3-44.9); Mean Corpuscular HGB Conc 30.7 g/dL (31.6-35.5); Mean Corpuscular Hemoglobin 28.4 pg (28.0-33.3); Mean Corpuscular Volume 92.5 fL (83.0-100.0); Mean Platelet Volume 10.9 fL (9.4-12.4); Platelet Count 236 K/mcL (140-400); Red Cell Distribution Width 15.4 % (11.5-14.5); White Blood Count 7.2 K/mcL (4.3-11.1)
[2019-01-10 06:41] LABS: Hemoglobin 9.1 g/dL (11.5-15.4)
[2019-01-10 06:52] LABS: BUN/Creatinine Ratio 25 (6-26); Blood Urea Nitrogen 16 mg/dL (8-23); Calcium 8.7 mg/dL (8.6-10.3); Carbon Dioxide 26 mEq/L (23-29); Chloride 108 mEq/L (98-107); Glucose 107 mg/dL (70-105); Osmolality,Calculated 290 (280-300); Potassium 3.8 mEq/L (3.5-5.1); Sodium 139 mEq/L (136-145); eGFR For African Americans > 60 (> 60); eGFR For Non-African Americans > 60 (> 60)
--- NOTE | 2019-01-10 09:30 | Internal Medicine Consult Note ---
Date of Encounter: 01/12/19 Time of Encounter: 09:29 - Assessment and Plan (1) Anemia Current Visit: Yes Status: Acute Assessment and plan: It does appear she said some GI bleeding given acute drop in hemoglobin, exertional symptoms, and melena. Will attempt EGD this morning, risks and benefits being discussed, I have received consent from both the patient and the daughter. There are no alternatives She is stable, has received 2 units of blood at this time. It is possible that if her upper endoscopy looks okay, she may require colonoscopy. Differential to include gastritis, ulceration, or tumor. Qualifiers: Anemia type: unspecified type Qualified Code(s): D64.9 - Anemia, unspecified (2) Aortic stenosis Current Visit: Yes Status: Chronic Qualifiers: Cardiac valve disease etiology: etiology unspecified Qualified Code(s): I35.0 - Nonrheumatic aortic (valve) stenosis (3) Left hip pain Current Visit: Yes Status: Chronic Assessment and plan: She is apparently wheelchair bound (4) Hypertension Current Visit: No Status: Chronic Qualifiers: Hypertension type: unspecified Qualified Code(s): I10 - Essential (primary) hypertension (5) Alzheimer's dementia Current Visit: Yes Status: Chronic Qualifiers: Qualified Code(s): G30.9 - Alzheimer's disease, unspecified; F02.81 - Dementia in other diseases classified elsewhere with behavioral disturbance Internal Medicine - CN: HPI - Data of Consult Requesting Physician: Chey Quinteros MD - Consult Narrative History of present illness: Ms. Kelly is a 83 year old female sent to the emergency room yesterday after having a low hemoglobin. Apparently she has been having some exertional dyspnea. Routine labs reported a hemoglobin of bit below 7. This patient reports some darkness of her stool. Otherwise she is a fairly poor historian with some moderately advanced dementia. I have spoke to the daughter this morning, who does verify the above. She is verbally consented to allow me to perform upper endoscopy with risks and remembers being discussed. She appears very comfortable in the bed. No pain at this time other some chronic left hip pain. She is received 2 units of blood and her hemoglobin now is 9.0. Her vital signs are stable. Blood pressures a bit elevated. Past Med Surg Social Fam HX - Past Medical History Medical history: arthritis, dementia, hyperlipidemia, hypertension, other Psychiatric history: anxiety - Past Surgical History Surgical History: appendectomy, , hip replacement, knee replacement Additional surgical history: Shoulder Surgery x2. Back surgery x 2 - Social History Smoking Status: Never smoker Smokeless Tobacco Status: No Alcohol use: none Drug use: none - Family History Mother Hx Family Endocrine Disorder: Yes (DM) Hx Family Neurologic Disorders: Yes (alzheimers) ROS unobtainable: due to mental status Internal Medicine - CN: Meds Cholecalciferol (D-3) [Vitamin D] 5,000 unit PO DAILY 11/16/17 [History] Tramadol HCl [Ultram] 100 mg PO Q6HR PRN 11/16/17 [History] Carvedilol [Coreg] 6.25 mg PO BID 01/10/19 [History] Cyanocobalamin (Vitamin B-12) [Vitamin B-12] 1,000 mcg PO DAILY 01/10/19 [History] Donepezil HCl [Aricept] 5 mg PO HS 01/10/19 [History] Losartan [Cozaar] 50 mg PO DAILY 01/10/19 [History] Mirtazapine [Remeron] 15 mg PO HS 01/10/19 [History] Aspirin Enteric Coated [Aspirin EC] 81 mg PO DAILY #30 tablet. 01/12/19 [Rx] Ferrous Sulfate 325 mg PO DAILY #30 tablet 01/12/19 [Rx] Omeprazole [PriLOSEC] 20 mg PO DAILY@0630 #14 capsule. 01/12/19 [Rx] Sucralfate [Carafate] 1 gm PO QIDAC #40 tablet 01/12/19 [Rx] Allergy/AdvReac Type Severity Reaction Status Date / Time acetaminophen [From Vicodin] AdvReac Nausea Verified 01/11/19 10:23 hydrocodone [From Vicodin] AdvReac Nausea Verified 01/11/19 10:23 pregabalin [From Lyrica] AdvReac Dizziness Verified 01/11/19 10:23 Internal Med - CN: Exam - Constitutional Vitals: Temp Pulse Resp BP Pulse Ox 97.9 F 68 16 174/69 93 01/10/19 07:12 01/10/19 07:12 01/10/19 07:12 01/10/19 07:12 01/10/19 08:17 General appearance IM: Present: cooperative, A&O X 1, pleasant, no acute distress. Absent: answers questions appropriately - Head Head exam: Present: atraumatic - ENT ENT exam: Present: normal oropharynx - Neck Neck exam general surgery: Present: supple, trachea midline. Absent: nuchal rigidity - Respiratory Respiratory exam: Present: CTAB - Cardiovascular Cardiovascular exam IM: Present: RRR, +S1, +S2, systolic murmur. Absent: irregular rhythm, JVD, tachycardia - GI/Abdominal GI/Abdominal exam IM: Present: normal bowel sounds, soft. Absent: splenomegaly, tenderness, no peritoneal signs - Rectal Rectal exam: Present: deferred Internal Medicine - CN: Reslt - Labs CBC & Chem 7: 01/12/19 05:27 01/10/19 06:12 Labs: Short CBC 01/09/19 01/10/19 01/10/19 Range/Units 20:03 01:07 06:12 WBC 8.3 7.7 7.2 (4.3-11.1) K/mcL Hgb 6.8 L 6.3 L 9.1 L D (11.5-15.4) g/dL Hct 22.4 L 21.2 L 29.6 L (35.3-44.9) % Plt Count 244 225 236 (140-400) K/mcL Neutrophils # 6.2 (1.6-8.9) K/mcL BMP 01/09/19 01/10/19 20:03 06:12 Sodium 139 139 Potassium 3.6 3.8 Chloride 109 H 108 H Carbon Dioxide 25 26 BUN 20 16 Creatinine 0.69 0.64 Glucose 101 107 H Calcium 9.0 8.7 Liver Function 01/09/19 Range/Units 20:03 Total Bilirubin 0.2 L (0.3-1.0) mg/dL AST 10 L (13-39) Units/L ALT 7 (7-52) Units/L Alkaline Phosphatase 83 (34-104) Units/L Albumin 3.6 (3.5-5.7) g/dL Urine 01/09/19 Range/Units 20:26 Urine Color Yellow (Yellow) Urine Clarity Clear (Clear) Urine pH 5.5 (5.0-8.0) pH Units Ur Specific [place] 1.026 H (1.010-1.025) Urine Protein Trace (Neg-Trace) mg/dL Urine Glucose (UA) Normal (Normal) mg/dL - ABG Interpretation ABG results: PT/INR, D-dimer PT 11.2 Seconds (9.4-12.1) 01/09/19 20:03 - Impressions Impressions Chest X-Ray 01/09/19 18:51 IMPRESSION: Stable study showing moderate hiatal hernia. D/ / Renee Gallardo Cha, MD / Renee Gallardo Cha, MD Interpreting Provider: Renee Gallardo Cha, MD Consult Discharge Plan - Plan Referrals: Lyssa Mera CNP [Primary Care Provider] - Prescriptions: Aspirin Enteric Coated [Aspirin EC] 81 mg PO DAILY #30 tablet. Transmission Status: Received by [facility] Sucralfate [Carafate] 1 gm PO QIDAC #40 tablet Transmission Status: Received by [facility] Ferrous Sulfate 325 mg PO DAILY #30 tablet Transmission Status: Received by [facility] Omeprazole [PriLOSEC] 20 mg PO DAILY@0630 #14 capsule. Transmission Status: Received by [facility]
[2019-01-10] MEDS ORDERED: *HR* FentaNYL (PF) 100 MCG/2 ML VIAL IVP ONE (09:36)
[2019-01-10] MEDS ORDERED: Simethicone 40 MG/0.6 ML MLS IR ONE (09:36)
[2019-01-10] MEDS ORDERED: *HR* Midazolam HCl 5 MG/5 ML VIAL IVP ONE ×2 (09:36→09:39)
[2019-01-10] MEDS ORDERED: Tetracaine/Benzocaine/Butamben 1 SPRAY AEROSOL MM ONE (09:36)
--- NOTE | 2019-01-10 09:38 | Pre-Sedation Evaluation ---
Pre-sedation evaluation - Pre-sedation checklist Date of procedure: 01/10/19 Procedure: EGD Recent Vitals: Last Vital Signs Temp 97.9 F 01/10/19 07:12 Pulse 68 01/10/19 07:12 Resp 16 01/10/19 07:12 BP 174/69 01/10/19 07:12 Pulse Ox 93 01/10/19 08:17 H&P (including ROS) documented in medical record: Yes Previous reaction to sedatives/anesthetics: No Dietary Status: NPO after Midnight Airway Assessment: Patient can open mouth completely, TMJ function normal Dentition: No loose teeth or bridges Possible difficult airway: No ASA Classification *see protocol: CLASS II-Mild systemic disease Plan of Care: Pt appropriate candidate for procedure/moderate/conscious sedation
[2019-01-10] MEDS ORDERED: *HR* FentaNYL (PF) 100 MCG/2 ML VIAL ONE (09:39)
[2019-01-10] MEDS ORDERED: PEG/Electrolytes/Ascorbic Acid 1 EACH POWD.PACK PO ONE (10:16)
--- NOTE | 2019-01-10 10:18 | Event Note ---
Date of Encounter: 01/10/19 Time of Encounter: 10:18 EGD: Some mild gastritis and antral erosions. Biopsies for H. Pylori done. Plan: Bowel prep today Colonoscopy in the AM of 01/11
--- NOTE | 2019-01-10 11:02 | Event Note ---
Date of Encounter: 01/10/19 Time of Encounter: 10:59 Patient here for severe anemia and melena. She has received 2 units of PRBCs and Hb now 9.1>6.3. GI has seen and EGD done was significant only for mild gastritis and antral erosions. Patient will be prepped for colonoscopy tomorrow.
--- NOTE | 2019-01-10 15:16 | Electrocardiograph Report ---
[address] [address] Test Date: 2019-01-09 Pat Name: Lauren Kelly Department: EXAM5 Room: 3A21 Gender: F Educational Specialist: : [id number] Requested By: Danita Irby Order Number: [id number] Reading MD: Estrellita Hwang Measurements Intervals [place] Rate: 66 P: 47 PA: 191 QRS: 40 QRSD: 97 T: -1 QT: 509 QTc: 534 Interpretive Statements Sinus rhythm Ventricular premature complex Borderline repolarization abnormality Prolonged QT interval Electronically Signed On 01-10-2019 15:14:22 EDT by Estrellita Hwang
[2019-01-10] MEDS ORDERED: Haloperidol Lactate 5 MG/ML VIAL IVP ONE (20:51)
[2019-01-11] MEDS ORDERED: Haloperidol Lactate 5 MG/ML VIAL IVP ONE (00:20)
--- NOTE | 2019-01-11 05:07 | Event Note ---
Date of Encounter: 01/11/19 Time of Encounter: 21:00 At approximately 21:00, I was notified by staff the patient was becoming agitated, confused, and paranoid. Nurses stated she was attempting to get out of bed multiple times. In addition patient refused to take her oral medications. After discussing with attending Dr. Worrell I initially attempted to order a sitter. Nurses sent a message to the warehouse associate who asked if there was a sitter available she responded there was not. As it was no sitter available, I verified with pharmacy dosage of maximum Haldol to give to patient over the course of the night due to agitation. Patient remained agitated and began to become combative with nursing staff ordered 1 mg of Haldol. At approximately 00:11 I received a message from nursing staff regarding patient yelling and again becoming agitated and combative. They stated prior to my arrival she was kicking nursing staff. I went to assess the patient and she was speaking obscenities and vulgarities at both myself and nursing staff. I then ordered 1 mg of Haldol. At approximately 4 AM, I went to reassess the patient a nd she was sleeping comfortably.
[2019-01-11] MEDS: *HR* FentaNYL (PF) 100 MCG/2 ML VIAL ONE ×2 (08:06→08:14)
[2019-01-11] MEDS: *HR* Midazolam HCl 5 MG/5 ML VIAL IVP ONE ×2 (08:06→08:14)
[2019-01-11 08:11] LABS: Hematocrit 32.2 % (35.3-44.9); Hemoglobin 10.1 g/dL (11.5-15.4)
--- NOTE | 2019-01-11 08:59 | Event Note ---
Date of Encounter: 01/11/19 Time of Encounter: 08:58 Colonoscopy findings: Pandiverticulosis, 3 small polyps removed. No signs of bleeding or fresh blood. The prep was adequate. His possible she has small bowel bleeding that. At this time, I do not believe the stomach findings are significant enough to cause this amount of blood loss. Therefore true GI bleeding has to be at least questioned. From a GI bleeding standpoint, she is safely able to be discharged, would recommend low-dose PPI therapy daily, hold aspirin products. And provide iron therapy by mouth daily.
--- NOTE | 2019-01-11 12:41 | Internal Med Progress Note ---
Hospitalist Progress Note - Encounter Date of Encounter: 01/11/19 Time of Encounter: 12:33 - Subjective Interval History: Per night team report, patient became agitated last night and slept after 2mg of haldol. She states that "last night was hell" and does not want to be in a hospital ever again. Patient had a bowel movement today and says it is no longer black. She denies abdominal pain, nausea and vomiting. - Exam Vitals: Temp Pulse Resp BP Pulse Ox 36.6 C 68 16 188/77 96 01/11/19 11:31 01/11/19 11:31 01/11/19 11:31 01/11/19 11:31 01/11/19 11:31 Exam: GENERAL: Not in distress. Alert and Oriented HEENT: EOMI, PERRLA MOUTH: Moist oral mucosa CHEST AND LUNGS: Normal breath sounds, no wheezes or crackles HEART: S1 and S2 normal, no murmurs ABDOMEN: Soft, nontender, no organomegaly SKIN: Normal color, no rashes, no lesions EXTREMITIES: No deformity, no edema, no tenderness, no joint swelling or clubbing NEUROLOGICAL: Normal cognition, normal motor and sensory exam. - Assessment and Plan (1) Anemia Current Visit: Yes Status: Acute Assessment and Plan: Patient has received 2 packed RBC transfusion this admission. Hemoglobin now at 10.1 g/dL. EGD and colonoscopy done:mild gastritis and antral erosions. Pandiverticulosis, 3 small polyps removed. No signs of bleeding or fresh blood. Will monitor H and H for another 24 hours and DC if stable. (2) Aortic stenosis Current Visit: Yes Status: Chronic Assessment and Plan: Mild to moderate aortic stenosis on Last echo 07/23/2018 Patient jada chest pain, SOB and palpitations. Will monitor. 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 Patient has made arrangements for a replacement procedure to take place next week in [place], [place]. She has been taking tramadol at home. Pain management as needed Avoid NSAIDs due to GI bleed (4) Hypertension Current Visit: No Status: Chronic Assessment and Plan: Poorly controlled 188/70 on encounter Patient states her BP is usally hard to control. Will continue home meds and add on other meds if need be. (5) Alzheimer's dementia Current Visit: Yes Status: Chronic Assessment and Plan: Patient is forgetful at times and is alert and oriented to person but not to place or time. Continue donepezil DVT Prophylaxis: PCDs - Time Spent with Patient Total time spent is greater than 50% in coordination of care (as documented) at patient's floor/unit and/or counseling patient: Internal Medicine: Result - Labs CBC & Chem 7: 01/11/19 07:32 01/10/19 06:12 Labs: Short CBC 01/11/19 Range/Units 07:32 Hgb 10.1 L (11.5-15.4) g/dL Hct 32.2 L (35.3-44.9) % - ABG Interpretation ABG results: PT/INR, D-dimer PT 11.2 Seconds (9.4-12.1) 01/09/19 20:03 Consult Discharge Plan - Plan Referrals: Lyssa Mera, TRAFFIC SIGNAL TECHNICIAN [Primary Care Provider] - ____ (1) Anemia Qualifiers: Anemia type: unspecified type Qualified Code(s): D64.9 - Anemia, unspecified (2) Aortic stenosis Qualifiers: Cardiac valve disease etiology: etiology unspecified Qualified Code(s): I35.0 - Nonrheumatic aortic (valve) stenosis (4) Hypertension Qualifiers: Hypertension type: unspecified Qualified Code(s): I10 - Essential (primary) hypertension (5) Alzheimer's dementia Qualifiers: Qualified Code(s): G30.9 - Alzheimer's disease, unspecified; F02.81 - Dementia in other diseases classified elsewhere with behavioral disturbance
[2019-01-11] MEDS: traMADol 50 MG TABLET PO PRN (13:45)
[2019-01-11] MEDS: Mirtazapine 15 MG TABLET PO SCH (20:13)
[2019-01-12] MEDS: traMADol 50 MG TABLET PO PRN ×2 (01:31→13:39)
[2019-01-12 05:54] LABS: Hematocrit 31.1 % (35.3-44.9); Hemoglobin 9.7 g/dL (11.5-15.4)
[2019-01-12] MEDS: Cyanocobalamin (B-12) 1,000 MCG TABLET PO SCH (08:03)
[2019-01-12] MEDS: Cholecalciferol (D-3) 1,000 UNIT (25MCG) TABLET PO SCH (08:03)
--- NOTE | 2019-01-12 08:58 | Discharge Summary ---
Orders not resulted at time of discharge: Pending orders 01/10/19 10:13 Surgical Pathology [PTH] Routine 01/11/19 08:27 Surgical Pathology [PTH] Routine Date of Encounter: 01/12/19 Time of Encounter: 08:52 - Discharge Diagnosis (1) Anemia Priority: Primary Status: Acute Qualifiers: Anemia type: unspecified type Qualified Code(s): D64.9 - Anemia, unspecified (2) Aortic stenosis Priority: Secondary Status: Chronic Qualifiers: Cardiac valve disease etiology: etiology unspecified Qualified Code(s): I35.0 - Nonrheumatic aortic (valve) stenosis (3) Left hip pain Priority: Secondary Status: Chronic (4) Hypertension Priority: Secondary Status: Chronic Qualifiers: Hypertension type: unspecified Qualified Code(s): I10 - Essential (primary) hypertension (5) Alzheimer's dementia Priority: Secondary Status: Chronic Qualifiers: Qualified Code(s): G30.9 - Alzheimer's disease, unspecified; F02.81 - Dementia in other diseases classified elsewhere with behavioral disturbance Hospital course: Ms. Kelly is a 83 year old female with a PMHx of OA, HTN and HLD who sent for admission from her PCPs office on account of severe anemia and melanotic stools. She received 2 units of PRBcs and Hb has remained stable afterwards. She no longer has melena stools. EGD and colonoscopy done:mild gastritis and antral ero sions. Pandiverticulosis, 3 small polyps removed. No signs of bleeding or fresh blood. Patient will be discharged on omeprazole and carafate. Discharge discussed with: patient, nurse, case management - Time Spent with Patient Total time spent providing and/or coordinating discharge services: Time spent: Greater than 30 minutes (30minutes) - Discharge Medications Prescriptions: New Sucralfate [Carafate] 1 gm PO QIDAC #40 tablet Ferrous Sulfate 325 mg PO DAILY #30 tablet Omeprazole [PriLOSEC] 20 mg PO DAILY@0630 #14 capsule. Aspirin Enteric Coated [Aspirin EC] 81 mg PO DAILY #30 tablet. Continued Tramadol HCl [Ultram] 100 mg PO Q6HR PRN PRN Reason: Pain Cholecalciferol (D-3) [Vitamin D] 5,000 unit PO DAILY Cyanocobalamin (Vitamin B-12) [Vitamin B-12] 1,000 mcg PO DAILY Carvedilol [Coreg] 6.25 mg PO BID Mirtazapine [Remeron] 15 mg PO HS Donepezil HCl [Aricept] 5 mg PO HS Losartan [Cozaar] 50 mg PO DAILY Discontinued Aspirin [Lo-Dose Aspirin EC] 81 mg PO DAILY Home Medications: Cholecalciferol (D-3) [Vitamin D] 5,000 unit PO DAILY 11/16/17 [History] Tramadol HCl [Ultram] 100 mg PO Q6HR PRN 11/16/17 [History] Carvedilol [Coreg] 6.25 mg PO BID 01/10/19 [History] Cyanocobalamin (Vitamin B-12) [Vitamin B-12] 1,000 mcg PO DAILY 01/10/19 [History] Donepezil HCl [Aricept] 5 mg PO HS 01/10/19 [History] Losartan [Cozaar] 50 mg PO DAILY 01/10/19 [History] Mirtazapine [Remeron] 15 mg PO HS 01/10/19 [History] Aspirin Enteric Coated [Aspirin EC] 81 mg PO DAILY #30 tablet. 01/12/19 [Rx] Ferrous Sulfate 325 mg PO DAILY #30 tablet 01/12/19 [Rx] Omeprazole [PriLOSEC] 20 mg PO DAILY@0630 #14 capsule. 01/12/19 [Rx] Sucralfate [Carafate] 1 gm PO QIDAC #40 tablet 01/12/19 [Rx] Allergies/Adverse Reactions: Allergy/AdvReac Type Severity Reaction Status Date / Time acetaminophen [From Vicodin] AdvReac Nausea Verified 01/11/19 10:23 hydrocodone [From Vicodin] AdvReac Nausea Verified 01/11/19 10:23 pregabalin [From Lyrica] AdvReac Dizziness Verified 01/11/19 10:23 Date of admission: 01/09/19 22:44 Primary care physician: Lyssa Mera CNP Consults: 01/10/19 00:12 Consult to Technology Training Associate [CONS] Routine Reason for SW Consult: pt request for help from home health services 01/10/19 01:01 Consult to Physician [CONS] Routine Consulting Provider: Bobby Diaz Reason for Consult: GI bleed, melena. Hemoglobin 6.8 Call Completed: No - Constitutional Vitals: Temp Pulse Resp BP Pulse Ox 36.9 C 75 16 177/66 2 01/12/19 06:44 01/12/19 06:44 01/12/19 06:44 01/12/19 06:44 01/12/19 08:15 General appearance: Present: cooperative, A&O X 1, pleasant, no acute distress. Absent: answers questions appropriately Exam: GENERAL: Not in distress. Alert and Oriented HEENT: EOMI, PERRLA MOUTH: Moist oral mucosa CHEST AND LUNGS: Normal breath sounds, no wheezes or crackles HEART: S1 and S2 normal, no murmurs ABDOMEN: Soft, nontender, no organomegaly SKIN: Normal color, no rashes, no lesions EXTREMITIES: No deformity, no edema, no tenderness, no joint swelling or clubbing NEUROLOGICAL: Normal cognition, normal motor and sensory exam. - Patient Status Disposition: Home Health Service Condition: Good Functional capacity at discharge: uses cane/walker Overall status at discharge: patient is progressing back to baseline - Discharge Instructions Follow Up With: Lyssa Mera SCORER [employer]INGLE [Primary Care Provider] - - Diet and Activity Activity: resume usual activities as tolerated Diet: advance to your usual diet
--- NOTE | 2019-01-12 09:07 | Physician Discharge Referral ---
Home Health/Hosp Referral Info Transfer to: Home Health Provider in Charge Post Discharge: PCP - Diagnosis (1) Anemia Priority: Primary Status: Acute (2) Aortic stenosis Priority: Secondary Status: Chronic (3) Left hip pain Priority: Secondary Status: Chronic (4) Hypertension Priority: Secondary Status: Chronic (5) Alzheimer's dementia Priority: Secondary Status: Chronic - Respiratory Orders Smoking Cessation: Smoking cessation has been advised. For more information, call the [place] Tobacco Quit Line at 8-114-FYHA-NOW. - Transfer Medications Prescriptions: Aspirin Enteric Coated [Aspirin EC] 81 mg PO DAILY #30 tablet. Transmission Status: Pending to [facility] Sucralfate [Carafate] 1 gm PO QIDAC #40 tablet Transmission Status: Received by [facility] Ferrous Sulfate 325 mg PO DAILY #30 tablet Transmission Status: Received by [facility] Omeprazole [PriLOSEC] 20 mg PO DAILY@0630 #14 capsule. Transmission Status: Sent to [facility] Home Medications: Cholecalciferol (D-3) [Vitamin D] 5,000 unit PO DAILY 11/16/17 [History] Tramadol HCl [Ultram] 100 mg PO Q6HR PRN 11/16/17 [History] Carvedilol [Coreg] 6.25 mg PO BID 01/10/19 [History] Cyanocobalamin (Vitamin B-12) [Vitamin B-12] 1,000 mcg PO DAILY 01/10/19 [History] Donepezil HCl [Aricept] 5 mg PO HS 01/10/19 [History] Losartan [Cozaar] 50 mg PO DAILY 01/10/19 [History] Mirtazapine [Remeron] 15 mg PO HS 01/10/19 [History] Aspirin Enteric Coated [Aspirin EC] 81 mg PO DAILY #30 tablet. 01/12/19 [Rx] Ferrous Sulfate 325 mg PO DAILY #30 tablet 01/12/19 [Rx] Omeprazole [PriLOSEC] 20 mg PO DAILY@0630 #14 capsule. 01/12/19 [Rx] Sucralfate [Carafate] 1 gm PO QIDAC #40 tablet 01/12/19 [Rx] Allergies/Adverse Reactions: Allergy/AdvReac Type Severity Reaction Status Date / Time acetaminophen [From Vicodin] AdvReac Nausea Verified 01/11/19 10:23 hydrocodone [From Vicodin] AdvReac Nausea Verified 01/11/19 10:23 pregabalin [From Lyrica] AdvReac Dizziness Verified 01/11/19 10:23 Certification: Further, I certify that my clinical findings support that this patient is homebound (i.e. absences from home require considerable and taxing effort and are for medical reasons or denominational services or infrequently or short duration when for other reasons) because: Homebound Reason: Leaving home requires considerable and taxing effort due to condition Attestation: My signature below is to certify that this patient is under my care and that I, or nurse practitioner, or a physician's gift shop assistant working with me, has a [id number] encounter with this patient.
[2019-01-12] MEDS: Mirtazapine 15 MG TABLET PO SCH (19:45)
[2019-01-13] MEDS: Cyanocobalamin (B-12) 1,000 MCG TABLET PO SCH (09:00)
[2019-01-13] MEDS: Cholecalciferol (D-3) 1,000 UNIT (25MCG) TABLET PO SCH (09:00)
--- NOTE | 2019-01-13 11:24 | Internal Med Progress Note ---
Hospitalist Progress Note - Encounter Date of Encounter: 01/13/19 Time of Encounter: 11:22 - Subjective Interval History: Constance cute event overnight. Patient reports 07/30 [pain in her left hip. She denies palpitations, chest pain and SOB. - Exam Vitals: Temp Pulse Resp BP Pulse Ox 36.8 C 75 16 164/71 92 01/13/19 06:37 01/13/19 06:37 01/13/19 06:37 01/13/19 06:37 01/13/19 09:50 Exam: GENERAL: Not in distress. Alert and Oriented HEENT: EOMI, PERRLA MOUTH: Moist oral mucosa CHEST AND LUNGS: Normal breath sounds, no wheezes or crackles HEART: S1 and S2 normal, no murmurs ABDOMEN: Soft, nontender, no organomegaly SKIN: Normal color, no rashes, no lesions EXTREMITIES: No deformity, no edema, no tenderness, no joint swelling or clubbing NEUROLOGICAL: Normal cognition, normal motor and sensory exam. - Assessment and Plan (1) Anemia Current Visit: Yes Status: Acute Assessment and Plan: Patient has received 2 packed RBC transfusion this admission. Hemoglobin 9.7g/dl EGD and colonoscopy done:mild gastritis and antral erosions. Pandiverticulosis, 3 small polyps removed. No signs of bleeding or fresh blood. Will keep monitoring H and h (2) Aortic stenosis Current Visit: Yes Status: Chronic Assessment and Plan: Mild to moderate aortic stenosis on Last echo 07/23/2018 Patient jada chest pain, SOB and palpitations. Will monitor. 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 Patient has made arrangements for a replacement procedure to take place next week in [place], [place]. She has been taking tramadol at home. Pain management as needed Avoid NSAIDs due to GI bleed (4) Hypertension Current Visit: No Status: Chronic Assessment and Plan: 165/70 this monring Will continue home meds and add on other meds if need be. (5) Alzheimer's dementia Current Visit: Yes Status: Chronic Assessment and Plan: Patient is forgetful at times and is alert and oriented to person but not to place or time. Continue donepezil DVT Prophylaxis: PCDs - Time Spent with Patient Total time spent is greater than 50% in coordination of care (as documented) at patient's floor/unit and/or counseling patient: Internal Medicine: Result - Labs CBC & Chem 7: 01/12/19 05:27 01/10/19 06:12 - ABG Interpretation ABG results: PT/INR, D-dimer PT 11.2 Seconds (9.4-12.1) 01/09/19 20:03 Consult Discharge Plan - Plan Referrals: Lyssa Mera, SOAP INSPECTOR [Primary Care Provider] - Prescriptions: Aspirin Enteric Coated [Aspirin EC] 81 mg PO DAILY #30 tablet.dr Transmission Status: Received by [facility] Sucralfate [Carafate] 1 gm PO QIDAC #40 tablet Transmission Status: Received by [facility] Ferrous Sulfate 325 mg PO DAILY #30 tablet Transmission Status: Received by [facility] Omeprazole [PriLOSEC] 20 mg PO DAILY@30 #14 capsule.dr Transmission Status: Received by [facility] ___ (1) Anemia Qualifiers: Anemia type: unspecified type Qualified Code(s): D64.9 - Anemia, unspecified (2) Aortic stenosis Qualifiers: Cardiac valve disease etiology: etiology unspecified Qualified Code(s): I35.0 - Nonrheumatic aortic (valve) stenosis (4) Hypertension Qualifiers: Hypertension type: unspecified Qualified Code(s): I10 - Essential (primary) hypertension (5) Alzheimer's dementia Qualifiers: Qualified Code(s): G30.9 - Alzheimer's disease, unspecified; F02.81 - Dementia in other diseases classified elsewhere with behavioral disturbance
--- NOTE | 2019-01-13 16:07 | Electrocardiograph Report ---
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
[2019-01-13] MEDS: Mirtazapine 15 MG TABLET PO SCH (20:13)
[2019-01-14] MEDS: Cholecalciferol (D-3) 1,000 UNIT (25MCG) TABLET PO SCH (08:46)
[2019-01-14] MEDS: Cyanocobalamin (B-12) 1,000 MCG TABLET PO SCH (08:46)
[2019-01-14] MEDS: traMADol 50 MG TABLET PO PRN ×2 (08:49→17:55)
[2019-01-14 11:26] LABS: Hematocrit 31.9 % (35.3-44.9); Hemoglobin 9.9 g/dL (11.5-15.4)
--- NOTE | 2019-01-14 12:11 | Internal Med Progress Note ---
Hospitalist Progress Note - Encounter Date of Encounter: 01/14/19 Time of Encounter: 12:08 - Subjective Interval History: Patient was seen and examined. Patient denie sin blood in the stool. Pt reports of left shoulder and left elbow pain this AM. Reports pain is achy , 5-6/10 in severity , worsens with movement and relieved by rest anf meds. Reports pain started yesterday. Pt has history of OA. - Exam Vitals: Temp Pulse Resp BP Pulse Ox 97.8 F 66 14 127/69 95 01/14/19 10:54 01/14/19 10:54 01/14/19 10:54 01/14/19 10:54 01/14/19 10:54 Exam: GENERAL: Not in distress. Alert and Oriented HEENT: EOMI, PERRLA MOUTH: Moist oral mucosa CHEST AND LUNGS: Normal breath sounds, no wheezes or crackles HEART: S1 and S2 normal, no murmurs ABDOMEN: Soft, nontender, no organomegaly SKIN: Normal color, no rashes, no lesions EXTREMITIES: Tenderness at the left elbow and shoulder joint. LROM at left elbow and shoulder joint. Sensation intact NEUROLOGICAL: Normal cognition, normal motor and sensory exam. - Assessment and Plan (1) Anemia Current Visit: Yes Status: Acute Assessment and Plan: Patient has received 2 packed RBC transfusion this admission. Hemoglobin today 9.9. Denies any blood in the stool. EGD and colonoscopy done:mild gastritis and antral erosions. Pandiverticulosis, 3 small polyps removed. No signs of bleeding or fresh blood. Will keep monitoring H and H Awaitng SNF placement (2) Left shoulder pain Current Visit: Yes Status: Acute Assessment and Plan: Pt c/o left shoulder pain today. On exam there is tenderness at the joint and LROM. X-ray of the shoulder ordered and reviewed personally. Negative for any fracture. Showed OA changes. Continue tramadol. (3) Left elbow pain Current Visit: Yes Status: Acute Assessment and Plan: Pt c/o left elbow pain today. On exam there is tenderness at the joint and LROM. X-ray of the elbow ordered and reviewed personally. Negative for any fracture. Showed OA changes. Continue tramadol. (4) Aortic stenosis Current Visit: Yes Status: Chronic Assessment and Plan: Mild to moderate aortic stenosis on Last echo 07/23/2018 Patient jada chest pain, SOB and palpitations. Will monitor. 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 Patient has made arrangements for a replacement procedure to take place next week in [place], [place]. She has been taking tramadol at home. Pain management as needed Avoid NSAIDs due to GI bleed (6) Hypertension Current Visit: No Status: Chronic Assessment and Plan: Will continue home meds. (7) Alzheimer's dementia Current Visit: Yes Status: Chronic Assessment and Plan: Patient is forgetful at times and is alert and oriented to person but not to place or time. Continue donepezil DVT Prophylaxis: PCDs - Time Spent with Patient Total time spent is greater than 50% in coordination of care (as documented) at patient's floor/unit and/or counseling patient: 25 - 35 minutes Plan of Care Discussed with: patient Internal Medicine: Result - Labs CBC & Chem 7: 01/14/19 11:13 01/10/19 06:12 Labs: Short CBC 01/14/19 Range/Units 11:13 Hgb 9.9 L (11.5-15.4) g/dL Hct 31.9 L (35.3-44.9) % - ABG Interpretation ABG results: PT/INR, D-dimer PT 11.2 Seconds (9.4-12.1) 01/09/19 20:03 - Impressions Impressions Elbow X-Ray 01/14/19 11:23 IMPRESSION: Soft tissue edema. No acute osseous abnormality. Osteoarthritis. D/ / Trav Adair MD / Trav Adair MD Interpreting Provider: Trav Adair MD Shoulder X-Ray 01/14/19 11:24 IMPRESSION: Degenerative changes in the shoulder. No acute osseous abnormality. D/ / Elvin Louise MD / Elvin Louise MD Interpreting Provider: Elvin Louise MD Consult Discharge Plan - Plan Referrals: Lyssa Mera, AIR CARGO GROUND OPERATIONS SUPERVISOR [Primary Care Provider] - Prescriptions: Aspirin Enteric Coated [Aspirin EC] 81 mg PO DAILY #30 tablet.dr Transmission Status: Received by [facility] Sucralfate [Carafate] 1 gm PO QIDAC #40 tablet Transmission Status: Received by [facility] Ferrous Sulfate 325 mg PO DAILY #30 tablet Transmission Status: Received by [facility] Omeprazole [PriLOSEC] 20 mg PO DAILY@0630 #14 capsule.dr Transmission Status: Received by [facility] (1) Anemia Qualifiers: Anemia type: unspecified type Qualified Code(s): D64.9 - Anemia, unspecified (2) Left shoulder pain Qualifiers: Chronicity: acute Qualified Code(s): M25.512 - Pain in left shoulder (4) Aortic stenosis Qualifiers: Cardiac valve disease etiology: etiology unspecified Qualified Code(s): I35.0 - Nonrheumatic aortic (valve) stenosis (6) Hypertension Qualifiers: Hypertension type: essential hypertension Qualified Code(s): I10 - Essential (primary) hypertension (7) Alzheimer's dementia Qualifiers: Alzheimer's disease onset: unspecified onset
[2019-01-14] MEDS: Mirtazapine 15 MG TABLET PO SCH (19:37)
[2019-01-15] MEDS: Cholecalciferol (D-3) 1,000 UNIT (25MCG) TABLET PO SCH (09:31)
[2019-01-15] MEDS: Cyanocobalamin (B-12) 1,000 MCG TABLET PO SCH (09:31)
--- NOTE | 2019-01-15 10:55 | Internal Med Progress Note ---
Hospitalist Progress Note - Encounter Date of Encounter: 01/15/19 Time of Encounter: 10:53 - Subjective Interval History: Pt was seen and examined at bedside today. She denies any acute issues and concerns overnight. Report her pain in left shoulder and left elbow is well controlled. Awaiting SNF placement - Exam Vitals: Temp Pulse Resp BP Pulse Ox 98.0 F 75 14 128/66 95 01/15/19 06:47 01/15/19 06:47 01/15/19 06:47 01/15/19 06:47 01/15/19 06:47 Exam: GENERAL: Not in distress. Alert and Oriented HEENT: EOMI, PERRLA MOUTH: Moist oral mucosa CHEST AND LUNGS: Normal breath sounds, no wheezes or crackles HEART: S1 and S2 normal, no murmurs ABDOMEN: Soft, nontender, no organomegaly SKIN: Normal color, no rashes, no lesions EXTREMITIES: Tenderness at the left elbow and shoulder joint. LROM at left elbow and shoulder joint. Sensation intact NEUROLOGICAL: Normal cognition, normal motor and sensory exam. - Assessment and Plan (1) Anemia Current Visit: Yes Status: Acute Assessment and Plan: Patient has received 2 packed RBC transfusion this admission. Hemoglobin yesterday 9.9. Denies any blood in the stool. EGD and colonoscopy done:mild gastritis and antral erosions. Pandiverticulosis, 3 small polyps removed. No signs of bleeding or fresh blood. Awaitng SNF placement Anticipate discahrge today or tomorrow (2) Left shoulder pain Current Visit: Yes Status: Acute Assessment and Plan: Continue tramadol. (3) Left elbow pain Current Visit: Yes Status: Acute Assessment and Plan: Continue tramadol. (4) Aortic stenosis Current Visit: Yes Status: Chronic Assessment and Plan: Mild to moderate aortic stenosis on Last echo 07/23/2018 Patient jada chest pain, SOB and palpitations. Will monitor. (5) Left hip pain Current Visit: Yes Status: Chronic Assessment and Plan: Continue tramadol Pain management as needed Avoid NSAIDs due to GI bleed (6) Hypertension Current Visit: No Status: Chronic Assessment and Plan: Will continue home meds. (7) Alzheimer's dementia Current Visit: Yes Status: Chronic Assessment and Plan: Patient is forgetful at times and is alert and oriented to person but not to place or time. Continue donepezil DVT Prophylaxis: EPCDs - Time Spent with Patient Total time spent is greater than 50% in coordination of care (as documented) at patient's floor/unit and/or counseling patient: 25 - 35 minutes Plan of Care Discussed with: patient Internal Medicine: Result - Labs CBC & Chem 7: 01/14/19 11:13 01/10/19 06:12 Labs: Short CBC 01/14/19 Range/Units 11:13 Hgb 9.9 L (11.5-15.4) g/dL Hct 31.9 L (35.3-44.9) % - ABG Interpretation ABG results: PT/INR, D-dimer PT 11.2 Seconds (9.4-12.1) 01/09/19 20:03 - Impressions Impressions Elbow X-Ray 01/14/19 11:23 IMPRESSION: Soft tissue edema. No acute osseous abnormality. Osteoarthritis. D/ / Trav Adair MD / Trav Adair MD Interpreting Provider: Trav Adair MD Shoulder X-Ray 01/14/19 11:24 IMPRESSION: Degenerative changes in the shoulder. No acute osseous abnormality. D/ / Elvin Louise MD / Elvin Louise MD Interpreting Provider: Elvin Louise MD Consult Discharge Plan - Plan Referrals: Lyssa Mera, GEOLOGY TEACHER [Primary Care Provider] - (1) Anemia Qualifiers: Anemia type: unspecified type Qualified Code(s): D64.9 - Anemia, unspecified (2) Left shoulder pain Qualifiers: Chronicity: acute Qualified Code(s): M25.512 - Pain in left shoulder (4) Aortic stenosis Qualifiers: Cardiac valve disease etiology: etiology unspecified Qualified Code(s): I35.0 - Nonrheumatic aortic (valve) stenosis (6) Hypertension Qualifiers: Hypertension type: essential hypertension Qualified Code(s): I10 - Essential (primary) hypertension (7) Alzheimer's dementia Qualifiers: Alzheimer's disease onset: unspecified onset
[2019-01-15] MEDS: traMADol 50 MG TABLET PO PRN (16:42)
[2019-01-15] MEDS: Mirtazapine 15 MG TABLET PO SCH (21:10)
[2019-01-16] MEDS: Cyanocobalamin (B-12) 1,000 MCG TABLET PO SCH (08:41)
[2019-01-16] MEDS: Cholecalciferol (D-3) 1,000 UNIT (25MCG) TABLET PO SCH (08:41)
--- NOTE | 2019-01-16 13:42 | Internal Med Progress Note ---
Hospitalist Progress Note - Encounter Date of Encounter: 01/16/19 Time of Encounter: 13:41 - Subjective Interval History: Patient was seen and examined at bedside today. Patient denies any acute issues and concerns overnight. Patient denied any fever and chills. - Exam Vitals: Temp Pulse Resp BP Pulse Ox 97.8 F 58 14 138/67 98 01/16/19 11:09 01/16/19 11:09 01/16/19 11:09 01/16/19 11:09 01/16/19 11:09 Exam: GENERAL: Not in distress. Alert and Oriented HEENT: EOMI, PERRLA MOUTH: Moist oral mucosa CHEST AND LUNGS: Normal breath sounds, no wheezes or crackles HEART: S1 and S2 normal, no murmurs ABDOMEN: Soft, nontender, no organomegaly SKIN: Normal color, no rashes, no lesions EXTREMITIES: Tenderness at the left elbow and shoulder joint. LROM at left elbow and shoulder joint. Sensation intact NEUROLOGICAL: Normal cognition, normal motor and sensory exam. - Assessment and Plan (1) Anemia Current Visit: Yes Status: Acute Assessment and Plan: Patient has received 2 packed RBC transfusion this admission EGD and colonoscopy done:mild gastritis and antral erosions. Pandiverticulosis, 3 small polyps removed. No signs of bleeding or fresh blood. Awaitng SNF placement Anticipate discahrge today or tomorrow (2) Left shoulder pain Current Visit: Yes Status: Acute Assessment and Plan: Continue tramadol. (3) Left elbow pain Current Visit: Yes Status: Acute Assessment and Plan: Continue tramadol. (4) Aortic stenosis Current Visit: Yes Status: Chronic Assessment and Plan: Mild to moderate aortic stenosis on Last echo 07/23/2018 Patient jada chest pain, SOB and palpitations. Will monitor. (5) Left hip pain Current Visit: Yes Status: Chronic Assessment and Plan: Continue tramadol Pain management as needed Avoid NSAIDs due to GI bleed (6) Hypertension Current Visit: No Status: Chronic Assessment and Plan: Will continue home meds. (7) Alzheimer's dementia Current Visit: Yes Status: Chronic Assessment and Plan: Patient is forgetful at times and is alert and oriented to person but not to place or time. Continue donepezil DVT Prophylaxis: EPCDs - Time Spent with Patient Total time spent is greater than 50% in coordination of care (as documented) at patient's floor/unit and/or counseling patient: 25 - 35 minutes Plan of Care Discussed with: patient Internal Medicine: Result - Labs CBC & Chem 7: 01/14/19 11:13 01/10/19 06:12 - ABG Interpretation ABG results: PT/INR, D-dimer PT 11.2 Seconds (9.4-12.1) 01/09/19 20:03 Consult Discharge Plan - Plan Referrals: Lyssa Mera, PARCEL CARRIER [Primary Care Provider] - (1) Anemia Qualifiers: Anemia type: unspecified type Qualified Code(s): D64.9 - Anemia, unspecified (2) Left shoulder pain Qualifiers: Chronicity: acute Qualified Code(s): M25.512 - Pain in left shoulder (4) Aortic stenosis Qualifiers: Cardiac valve disease etiology: etiology unspecified Qualified Code(s): I35.0 - Nonrheumatic aortic (valve) stenosis (6) Hypertension Qualifiers: Hypertension type: essential hypertension Qualified Code(s): I10 - Essential (primary) hypertension (7) Alzheimer's dementia Qualifiers: Alzheimer's disease onset: unspecified onset
[2019-01-16] MEDS: Mirtazapine 15 MG TABLET PO SCH (21:22)
[2019-01-17] MEDS: traMADol 50 MG TABLET PO PRN ×4 (03:03→22:45)
[2019-01-17 07:54] LABS: Hematocrit 29.2 % (35.3-44.9); Hemoglobin 9.1 g/dL (11.5-15.4)
[2019-01-17] MEDS: Cyanocobalamin (B-12) 1,000 MCG TABLET PO SCH (10:02)
[2019-01-17] MEDS: Cholecalciferol (D-3) 1,000 UNIT (25MCG) TABLET PO SCH (10:02)
--- NOTE | 2019-01-17 13:29 | Internal Med Progress Note ---
Hospitalist Progress Note - Encounter Date of Encounter: 01/17/19 Time of Encounter: 13:27 - Subjective Interval History: She was seen and examined at bedside today. Patient denied any acute issues and consult at this time. Patient is awaiting SNF placement. - Exam Vitals: Temp Pulse Resp BP Pulse Ox 97.7 F 64 15 161/75 97 01/17/19 10:50 01/17/19 10:50 01/17/19 10:50 01/17/19 10:50 01/17/19 10:50 Exam: GENERAL: Not in distress. Alert and Oriented HEENT: EOMI, PERRLA MOUTH: Moist oral mucosa CHEST AND LUNGS: Normal breath sounds, no wheezes or crackles HEART: S1 and S2 normal, no murmurs ABDOMEN: Soft, nontender, no organomegaly SKIN: Normal color, no rashes, no lesions EXTREMITIES: Tenderness at the left elbow and shoulder joint. LROM at left elbow and shoulder joint. Sensation intact NEUROLOGICAL: Normal cognition, normal motor and sensory exam. - Assessment and Plan (1) Anemia Current Visit: Yes Status: Acute Assessment and Plan: Patient has received 2 packed RBC transfusion this admission, hemoglobin today 9.1. Patient is currently not actively bleeding. EGD and colonoscopy done:mild gastritis and antral erosions. Pandiverticulosis, 3 small polyps removed. No signs of bleeding or fresh blood. Awaitng SNF placement (2) Aortic stenosis Current Visit: Yes Status: Chronic Assessment and Plan: Mild to moderate aortic stenosis on Last echo 07/23/2018 Patient jada chest pain, SOB and palpitations. Will monitor. (3) Left hip pain Current Visit: Yes Status: Chronic Assessment and Plan: Continue tramadol Pain management as needed Avoid NSAIDs due to GI bleed (4) Hypertension Current Visit: No Status: Chronic Assessment and Plan: Will continue home meds. (5) Alzheimer's dementia Current Visit: Yes Status: Chronic Assessment and Plan: Patient is forgetful at times and is alert and oriented to person but not to place or time. Continue donepezil DVT Prophylaxis: EPCD - Time Spent with Patient Total time spent is greater than 50% in coordination of care (as documented) at patient's floor/unit and/or counseling patient: 25 - 35 minutes Plan of Care Discussed with: patient Internal Medicine: Result - Labs CBC & Chem 7: 01/17/19 07:27 01/10/19 06:12 Labs: Short CBC 01/17/19 Range/Units 07:27 Hgb 9.1 L (11.5-15.4) g/dL Hct 29.2 L (35.3-44.9) % - ABG Interpretation ABG results: PT/INR, D-dimer PT 11.2 Seconds (9.4-12.1) 01/09/19 20:03 Consult Discharge Plan - Plan Referrals: Lyssa Mera, COMMUTATOR INSPECTOR [Primary Care Provider] - (1) Anemia Qualifiers: Anemia type: unspecified type Qualified Code(s): D64.9 - Anemia, unspecified (2) Aortic stenosis Qualifiers: Cardiac valve disease etiology: etiology unspecified Qualified Code(s): I35.0 - Nonrheumatic aortic (valve) stenosis (4) Hypertension Qualifiers: Hypertension type: essential hypertension Qualified Code(s): I10 - Essential (primary) hypertension (5) Alzheimer's dementia Qualifiers: Alzheimer's disease onset: unspecified onset
[2019-01-17] MEDS: Mirtazapine 15 MG TABLET PO SCH (20:12)
[2019-01-18] MEDS ORDERED: Haloperidol Lactate 5 MG/ML VIAL IVP ONE (03:25)
[2019-01-18] MEDS ORDERED: *HR* Promethazine 25 MG/ML VIAL IVP ONE (03:26)
[2019-01-18] MEDS: Cholecalciferol (D-3) 1,000 UNIT (25MCG) TABLET PO SCH (09:39)
[2019-01-18] MEDS: Cyanocobalamin (B-12) 1,000 MCG TABLET PO SCH (09:40)
--- NOTE | 2019-01-18 12:27 | Internal Med Progress Note ---
Hospitalist Progress Note - Encounter Date of Encounter: 01/18/19 Time of Encounter: 12:25 - Subjective Interval History: Patient was seen and examined at bedside. Patient denied any acute issues and concerns. Patient is awaiting SNF placement Patient had episode of delirium overnight and received Haldol once. Patient has been calm since then. Patient does not have a issue with delirium and agitation otherwise in the past 5 days. - Exam Vitals: Temp Pulse Resp BP Pulse Ox 98.3 F 66 19 140/68 98 01/18/19 10:27 01/18/19 10:27 01/18/19 10:27 01/18/19 10:27 01/18/19 10:27 Exam: GENERAL: Not in distress. Alert and Oriented HEENT: EOMI, PERRLA MOUTH: Moist oral mucosa CHEST AND LUNGS: Normal breath sounds, no wheezes or crackles HEART: S1 and S2 normal, no murmurs ABDOMEN: Soft, nontender, no organomegaly SKIN: Normal color, no rashes, no lesions EXTREMITIES: Tenderness at the left elbow and shoulder joint. Tenderness at left hip joint. ROM at the left elbow and left shoulder joint has improved significantly. NEUROLOGICAL: Normal cognition, normal motor and sensory exam. - Assessment and Plan (1) Anemia Current Visit: Yes Status: Acute Assessment and Plan: Patient has received 2 packed RBC transfusion this admission, hemoglobin yesterday 9.1. Patient is currently not actively bleeding. EGD and colonoscopy done:mild gastritis and antral erosions. Pandiverticulosis, 3 small polyps removed. No signs of bleeding or fresh blood. Awaitng SNF placement (2) Aortic stenosis Current Visit: Yes Status: Chronic Assessment and Plan: Mild to moderate aortic stenosis on Last echo 07/23/2018 Patient jada chest pain, SOB and palpitations. Will monitor. (3) Left hip pain Current Visit: Yes Status: Chronic Assessment and Plan: Continue tramadol Pain management as needed Avoid NSAIDs due to GI bleed (4) Hypertension Current Visit: No Status: Chronic Assessment and Plan: Will continue home meds. (5) Alzheimer's dementia Current Visit: Yes Status: Chronic Assessment and Plan: Patient is forgetful at times and is alert and oriented to person but not to place or time. Continue donepezil - Time Spent with Patient Total time spent is greater than 50% in coordination of care (as documented) at patient's floor/unit and/or counseling patient: 25 - 35 minutes Plan of Care Discussed with: patient Internal Medicine: Result - Labs CBC & Chem 7: 01/17/19 07:27 01/10/19 06:12 - ABG Interpretation ABG results: PT/INR, D-dimer PT 11.2 Seconds (9.4-12.1) 01/09/19 20:03 Consult Discharge Plan - Plan Referrals: Lyssa Mera, INTERNAL AUDIT DIRECTOR [Primary Care Provider] - (1) Anemia Qualifiers: Anemia type: unspecified type Qualified Code(s): D64.9 - Anemia, unspecified (2) Aortic stenosis Qualifiers: Cardiac valve disease etiology: etiology unspecified Qualified Code(s): I35.0 - Nonrheumatic aortic (valve) stenosis (4) Hypertension Qualifiers: Hypertension type: essential hypertension Qualified Code(s): I10 - Essential (primary) hypertension (5) Alzheimer's dementia Qualifiers: Alzheimer's disease onset: unspecified onset
[2019-01-18] MEDS: traMADol 50 MG TABLET PO PRN (15:49)
[2019-01-18] MEDS: Mirtazapine 15 MG TABLET PO SCH (20:09)
[2019-01-19 06:28] LABS: Hematocrit 28.8 % (35.3-44.9); Hemoglobin 8.8 g/dL (11.5-15.4); Mean Corpuscular HGB Conc 30.6 g/dL (31.6-35.5); Mean Corpuscular Hemoglobin 28.1 pg (28.0-33.3); Mean Platelet Volume 10.5 fL (9.4-12.4); Platelet Count 344 K/mcL (140-400); Red Blood Count 3.13 M/mcL (3.82-4.97); Red Cell Distribution Width 14.8 % (11.5-14.5); White Blood Count 7.5 K/mcL (4.3-11.1)
[2019-01-19 06:50] LABS: BUN/Creatinine Ratio 23 (6-26); Blood Urea Nitrogen 15 mg/dL (8-23); Calcium 9.7 mg/dL (8.6-10.3); Carbon Dioxide 30 mEq/L (23-29); Chloride 103 mEq/L (98-107); Glucose 98 mg/dL (70-105); Osmolality,Calculated 285 (280-300); Sodium 137 mEq/L (136-145); eGFR For African Americans > 60 (> 60); eGFR For Non-African Americans > 60 (> 60)
[2019-01-19] MEDS: Cholecalciferol (D-3) 1,000 UNIT (25MCG) TABLET PO SCH (08:37)
[2019-01-19] MEDS: Cyanocobalamin (B-12) 1,000 MCG TABLET PO SCH (08:37)
--- NOTE | 2019-01-19 11:35 | Internal Med Progress Note ---
Hospitalist Progress Note - Encounter Date of Encounter: 01/19/19 Time of Encounter: 11:32 - Subjective Interval History: Patient seen and examined at bedside today. Denies any acute issues overnight. Denies any fever and chills. Awaiting SNF placement - Exam Vitals: Temp Pulse Resp BP Pulse Ox 98.5 F 72 15 127/66 92 01/19/19 06:36 01/19/19 06:36 01/19/19 06:36 01/19/19 06:36 01/19/19 08:40 Exam: GENERAL: Not in distress. Alert and Oriented HEENT: EOMI, PERRLA MOUTH: Moist oral mucosa CHEST AND LUNGS: Normal breath sounds, no wheezes or crackles HEART: S1 and S2 normal, no murmurs ABDOMEN: Soft, nontender, no organomegaly SKIN: Normal color, no rashes, no lesions EXTREMITIES:Tenderness at left hip joint. ROM at the left elbow and left shoulder joint has improved significantly. NEUROLOGICAL: Normal cognition, normal motor and sensory exam. - Assessment and Plan (1) Anemia Current Visit: Yes Status: Acute Assessment and Plan: Patient has received 2 packed RBC transfusion this admission, hemoglobin today is 8.8 Patient is currently not actively bleeding. EGD and colonoscopy done:mild gastritis and antral erosions. Pandiverticulosis, 3 small polyps removed. No signs of bleeding or fresh blood. Awaitng SNF placement (2) Aortic stenosis Current Visit: Yes Status: Chronic Assessment and Plan: Mild to moderate aortic stenosis on Last echo 07/23/2018 Patient jada chest pain, SOB and palpitations. Will monitor. (3) Left hip pain Current Visit: Yes Status: Chronic Assessment and Plan: Continue tramadol Pain management as needed Avoid NSAIDs due to GI bleed (4) Hypertension Current Visit: No Status: Chronic Assessment and Plan: Will continue home meds. (5) Alzheimer's dementia Current Visit: Yes Status: Chronic Assessment and Plan: Patient is forgetful at times and is alert and oriented to person but not to place or time. Continue donepezil - Time Spent with Patient Total time spent is greater than 50% in coordination of care (as documented) at patient's floor/unit and/or counseling patient: less than 15 minutes Plan of Care Discussed with: patient Internal Medicine: Result - Labs CBC & Chem 7: 01/19/19 05:30 01/19/19 05:30 Labs: Short CBC 01/19/19 Range/Units 05:30 WBC 7.5 (4.3-11.1) K/mcL Hgb 8.8 L (11.5-15.4) g/dL Hct 28.8 L (35.3-44.9) % Plt Count 344 (140-400) K/mcL BMP 01/19/19 05:30 Sodium 137 Potassium 4.0 Chloride 103 Carbon Dioxide 30 H BUN 15 Creatinine 0.66 Glucose 98 Calcium 9.7 - ABG Interpretation ABG results: PT/INR, D-dimer PT 11.2 Seconds (9.4-12.1) 01/09/19 20:03 Consult Discharge Plan - Plan Referrals: Lyssa Mera, FORENSIC MANAGER [Primary Care Provider] - (1) Anemia Qualifiers: Anemia type: unspecified type Qualified Code(s): D64.9 - Anemia, unspecified (2) Aortic stenosis Qualifiers: Cardiac valve disease etiology: etiology unspecified Qualified Code(s): I35.0 - Nonrheumatic aortic (valve) stenosis (4) Hypertension Qualifiers: Hypertension type: essential hypertension Qualified Code(s): I10 - Essential (primary) hypertension (5) Alzheimer's dementia Qualifiers: Alzheimer's disease onset: unspecified onset
[2019-01-19] MEDS: Mirtazapine 15 MG TABLET PO SCH (20:27)
[2019-01-20] MEDS: traMADol 50 MG TABLET PO PRN ×2 (00:58→22:26)
[2019-01-20 06:44] LABS: Mean Corpuscular Hemoglobin 27.4 pg (28.0-33.3); Mean Corpuscular Volume 88.1 fL (83.0-100.0); Mean Platelet Volume 10.3 fL (9.4-12.4); Platelet Count 333 K/mcL (140-400); Red Blood Count 3.29 M/mcL (3.82-4.97); Red Cell Distribution Width 14.6 % (11.5-14.5); White Blood Count 7.9 K/mcL (4.3-11.1)
[2019-01-20 07:08] LABS: BUN/Creatinine Ratio 22 (6-26); Blood Urea Nitrogen 13 mg/dL (8-23); Calcium 9.8 mg/dL (8.6-10.3); Carbon Dioxide 28 mEq/L (23-29); Chloride 103 mEq/L (98-107); Glucose 103 mg/dL (70-105); Osmolality,Calculated 286 (280-300); Potassium 3.8 mEq/L (3.5-5.1); Sodium 138 mEq/L (136-145); eGFR For African Americans > 60 (> 60); eGFR For Non-African Americans > 60 (> 60)
[2019-01-20] MEDS: Cholecalciferol (D-3) 1,000 UNIT (25MCG) TABLET PO SCH (08:33)
[2019-01-20] MEDS: Cyanocobalamin (B-12) 1,000 MCG TABLET PO SCH (08:33)
--- NOTE | 2019-01-20 10:32 | Internal Med Progress Note ---
Hospitalist Progress Note - Encounter Date of Encounter: 01/20/19 Time of Encounter: 10:30 - Subjective Interval History: Patient was seen and examined at bedside today. Patient denies any acute issues and consent. Awaiting SNF placement. - Exam Vitals: Temp Pulse Resp BP Pulse Ox 98.0 F 67 15 127/64 93 01/20/19 10:28 01/20/19 10:28 01/20/19 10:28 01/20/19 10:28 01/20/19 10:28 Exam: GENERAL: Not in distress. Alert and Oriented HEENT: EOMI, PERRLA MOUTH: Moist oral mucosa CHEST AND LUNGS: Normal breath sounds, no wheezes or crackles HEART: S1 and S2 normal, no murmurs ABDOMEN: Soft, nontender, no organomegaly SKIN: Normal color, no rashes, no lesions EXTREMITIES:Tenderness at left hip joint. ROM at the left elbow and left shoulder joint has improved significantly. NEUROLOGICAL: Normal cognition, normal motor and sensory exam. - Assessment and Plan (1) Anemia Current Visit: Yes Status: Acute Assessment and Plan: Patient has received 2 packed RBC transfusion this admission, hemoglobin today is 9.0 Patient is currently not actively bleeding. EGD and colonoscopy done:mild gastritis and antral erosions. Pandiverticulosis, 3 small polyps removed. No signs of bleeding or fresh blood. Awaitng SNF placement (2) Aortic stenosis Current Visit: Yes Status: Chronic Assessment and Plan: Mild to moderate aortic stenosis on Last echo 07/23/2018 Patient jada chest pain, SOB and palpitations. Will monitor. (3) Left hip pain Current Visit: Yes Status: Chronic Assessment and Plan: Continue tramadol Pain management as needed Avoid NSAIDs due to GI bleed (4) Hypertension Current Visit: No Status: Chronic Assessment and Plan: Will continue home meds. (5) Alzheimer's dementia Current Visit: Yes Status: Chronic Assessment and Plan: Patient is forgetful at times and is alert and oriented to person but not to place or time. Continue donepezil DVT Prophylaxis: EPCD - Time Spent with Patient Total time spent is greater than 50% in coordination of care (as documented) at patient's floor/unit and/or counseling patient: less than 15 minutes Plan of Care Discussed with: patient Internal Medicine: Result - Labs CBC & Chem 7: 01/20/19 06:08 01/20/19 06:08 Labs: Short CBC 01/20/19 Range/Units 06:08 WBC 7.9 (4.3-11.1) K/mcL Hgb 9.0 L (11.5-15.4) g/dL Hct 29.0 L (35.3-44.9) % Plt Count 333 (140-400) K/mcL BMP 01/20/19 06:08 Sodium 138 Potassium 3.8 Chloride 103 Carbon Dioxide 28 BUN 13 Creatinine 0.58 L Glucose 103 Calcium 9.8 - ABG Interpretation ABG results: PT/INR, D-dimer PT 11.2 Seconds (9.4-12.1) 01/09/19 20:03 Consult Discharge Plan - Plan Referrals: Lyssa Mera, MACHINE GROUP LEADER [Primary Care Provider] - (1) Anemia Qualifiers: Anemia type: unspecified type Qualified Code(s): D64.9 - Anemia, unspecified (2) Aortic stenosis Qualifiers: Cardiac valve disease etiology: etiology unspecified Qualified Code(s): I35.0 - Nonrheumatic aortic (valve) stenosis (4) Hypertension Qualifiers: Hypertension type: essential hypertension Qualified Code(s): I10 - Essential (primary) hypertension (5) Alzheimer's dementia Qualifiers: Alzheimer's disease onset: unspecified onset
[2019-01-20] MEDS: Mirtazapine 15 MG TABLET PO SCH (21:23)
--- NOTE | 2019-01-21 07:54 | Internal Med Progress Note ---
Hospitalist Progress Note - Encounter Date of Encounter: 01/21/19 Time of Encounter: 07:54 - Subjective Interval History: Patient seen and examined this morning at bedside. No acute overnight events. alert oriented x3. Denies new complains. has lt hip pain. - Exam Vitals: Temp Pulse Resp BP Pulse Ox 97.8 F 66 15 138/68 92 01/21/19 06:30 01/21/19 06:30 01/21/19 06:30 01/21/19 06:30 01/21/19 06:30 Exam: GENERAL: Not in distress. Alert and Oriented HEENT: EOMI, PERRLA MOUTH: Moist oral mucosa CHEST AND LUNGS: Normal breath sounds, no wheezes or crackles HEART: S1 and S2 normal, no murmurs ABDOMEN: Soft, nontender, no organomegaly SKIN: Normal color, no rashes, no lesions EXTREMITIES:Tenderness at left hip joint. ROM at the left elbow and left shoulder joint has improved significantly. NEUROLOGICAL: Normal cognition, normal motor and sensory exam. - Assessment and Plan (1) Anemia Current Visit: Yes Status: Chronic (2) Aortic stenosis Current Visit: Yes Status: Chronic (3) Left hip pain Current Visit: Yes Status: Chronic (4) Hypertension Current Visit: No Status: Chronic (5) Alzheimer's dementia Current Visit: Yes Status: Chronic - Summary of Assessment and Plan Summary of Assessment and Plan: Anemia - stable - s/p EGD and colonoscopy done:mild gastritis and antral erosions. Pandiverticulosis, 3 small polyps removed. No signs of bleeding or fresh blood. - Was awaitng SNF placement however mentions today she does not want to go to re hab event if against adivsed by PT. Will discharge to home once home health arranged. Left hip pain and fall risk - Continue tramadol - Will arranged for rollator on discharge - Time Spent with Patient Total time spent is greater than 50% in coordination of care (as documented) at patient's floor/unit and/or counseling patient: Internal Medicine: Result - Labs CBC & Chem 7: 01/20/19 06:08 01/20/19 06:08 - ABG Interpretation ABG results: PT/INR, D-dimer PT 11.2 Seconds (9.4-12.1) 01/09/19 20:03 Consult Discharge Plan - Plan Referrals: Lyssa Mera, SOLID WASTE FACILITY SUPERVISOR [Primary Care Provider] - (1) Anemia Qualifiers: Anemia type: unspecified type Qualified Code(s): D64.9 - Anemia, unspecified (2) Aortic stenosis Qualifiers: Cardiac valve disease etiology: etiology unspecified Qualified Code(s): I35.0 - Nonrheumatic aortic (valve) stenosis (4) Hypertension Qualifiers: Hypertension type: essential hypertension Qualified Code(s): I10 - Essential (primary) hypertension (5) Alzheimer's dementia Qualifiers: Alzheimer's disease onset: unspecified onset
[2019-01-21] MEDS: Cholecalciferol (D-3) 1,000 UNIT (25MCG) TABLET PO SCH (09:31)
[2019-01-21] MEDS: Cyanocobalamin (B-12) 1,000 MCG TABLET PO SCH (09:31)
[2019-01-21] MEDS: traMADol 50 MG TABLET PO PRN ×2 (09:34→19:59)
--- NOTE | 2019-01-21 17:29 | Physician Discharge Referral ---
Home Health/Hosp Referral Info Transfer to: Home Health - Diagnosis (1) Anemia Status: Acute (2) Aortic stenosis Status: Chronic (3) Left hip pain Status: Chronic (4) Hypertension Status: Chronic (5) Alzheimer's dementia Status: Chronic - Respiratory Orders Smoking Cessation: Smoking cessation has been advised. For more information, call the [place] Tobacco Quit Line at 8-398-RCRZ-NOW. - Services Needed Following services are medically necessary services: Nursing, Home Health Aide, Physical Therapy, Occupational Therapy - Transfer Medications Home Medications: Cholecalciferol (D-3) [Vitamin D] 5,000 unit PO DAILY 11/16/17 [History] Tramadol HCl [Ultram] 100 mg PO Q6HR PRN 11/16/17 [History] Carvedilol [Coreg] 6.25 mg PO BID 01/10/19 [History] Cyanocobalamin (Vitamin B-12) [Vitamin B-12] 1,000 mcg PO DAILY 01/10/19 [History] Donepezil HCl [Aricept] 5 mg PO HS 01/10/19 [History] Losartan [Cozaar] 50 mg PO DAILY 01/10/19 [History] Mirtazapine [Remeron] 15 mg PO HS 01/10/19 [History] Aspirin Enteric Coated [Aspirin EC] 81 mg PO DAILY #30 tablet. 01/12/19 [Rx] Ferrous Sulfate 325 mg PO DAILY #30 tablet 01/12/19 [Rx] Omeprazole [PriLOSEC] 20 mg PO DAILY@0630 #14 capsule. 01/12/19 [Rx] Sucralfate [Carafate] 1 gm PO QIDAC #40 tablet 01/12/19 [Rx] Allergies/Adverse Reactions: Allergy/AdvReac Type Severity Reaction Status Date / Time acetaminophen [From Vicodin] AdvReac Nausea Verified 01/11/19 10:23 hydrocodone [From Vicodin] AdvReac Nausea Verified 01/11/19 10:23 pregabalin [From Lyrica] AdvReac Dizziness Verified 01/11/19 10:23 Certification: Further, I certify that my clinical findings support that this patient is homebound (i.e. absences from home require considerable and taxing effort and are for medical reasons or buddhism services or infrequently or short duration when for other reasons) because: Homebound Reason: Patient requires assistance of a person or device to safely leave home Attestation: My signature below is to certify that this patient is under my care and that I, or nurse practitioner, or a physician's field assistant working with me, has a [id number] encounter with this patient.
[2019-01-21] MEDS: Mirtazapine 15 MG TABLET PO SCH (19:59)
--- NOTE | 2019-01-22 07:47 | Discharge Summary ---
Date of Encounter: 01/22/19 Time of Encounter: 07:47 - Discharge Diagnosis (1) Anemia Status: Chronic Qualifiers: Anemia type: unspecified type Qualified Code(s): D64.9 - Anemia, unspecified (2) Aortic stenosis Status: Chronic Qualifiers: Cardiac valve disease etiology: etiology unspecified Qualified Code(s): I35.0 - Nonrheumatic aortic (valve) stenosis (3) Left hip pain Status: Chronic (4) Hypertension Status: Chronic Qualifiers: Hypertension type: essential hypertension Qualified Code(s): I10 - Essential (primary) hypertension (5) Alzheimer's dementia Status: Chronic Qualifiers: Alzheimer's disease onset: unspecified onset Hospital course: Ms. Kelly is a 83 year old female - Time Spent with Patient Total time spent providing and/or coordinating discharge services: - Discharge Medications Prescriptions: New Sucralfate [Carafate] 1 gm PO QIDAC #40 tablet Ferrous Sulfate 325 mg PO DAILY #30 tablet Omeprazole [PriLOSEC] 20 mg PO DAILY@0630 #14 capsule. Aspirin Enteric Coated [Aspirin EC] 81 mg PO DAILY #30 tablet. Continued Tramadol HCl [Ultram] 100 mg PO Q6HR PRN PRN Reason: Pain Cholecalciferol (D-3) [Vitamin D] 5,000 unit PO DAILY Cyanocobalamin (Vitamin B-12) [Vitamin B-12] 1,000 mcg PO DAILY Carvedilol [Coreg] 6.25 mg PO BID Mirtazapine [Remeron] 15 mg PO HS Donepezil HCl [Aricept] 5 mg PO HS Losartan [Cozaar] 50 mg PO DAILY Discontinued Aspirin [Lo-Dose Aspirin EC] 81 mg PO DAILY Home Medications: Cholecalciferol (D-3) [Vitamin D] 5,000 unit PO DAILY 11/16/17 [History] Tramadol HCl [Ultram] 100 mg PO Q6HR PRN 11/16/17 [History] Carvedilol [Coreg] 6.25 mg PO BID 01/10/19 [History] Cyanocobalamin (Vitamin B-12) [Vitamin B-12] 1,000 mcg PO DAILY 01/10/19 [ History] Donepezil HCl [Aricept] 5 mg PO HS 01/10/19 [History] Losartan [Cozaar] 50 mg PO DAILY 01/10/19 [History] Mirtazapine [Remeron] 15 mg PO HS 01/10/19 [History] Aspirin Enteric Coated [Aspirin EC] 81 mg PO DAILY #30 tablet. 01/12/19 [Rx] Ferrous Sulfate 325 mg PO DAILY #30 tablet 01/12/19 [Rx] Omeprazole [PriLOSEC] 20 mg PO DAILY@0630 #14 capsule. 01/12/19 [Rx] Sucralfate [Carafate] 1 gm PO QIDAC #40 tablet 01/12/19 [Rx] Allergies/Adverse Reactions: Allergy/AdvReac Type Severity Reaction Status Date / Time acetaminophen [From Vicodin] AdvReac Nausea Verified 01/11/19 10:23 hydrocodone [From Vicodin] AdvReac Nausea Verified 01/11/19 10:23 pregabalin [From Lyrica] AdvReac Dizziness Verified 01/11/19 10:23 Date of admission: 01/14/19 12:58 Primary care physician: Lyssa Mera CNP Consults: 01/10/19 00:12 Consult to Ammonia Technician [CONS] Routine Reason for SW Consult: pt request for help from home health services 01/10/19 01:01 Consult to Physician [CONS] Routine Consulting Provider: Bobby Diaz Reason for Consult: GI bleed, melena. Hemoglobin 6.8 Call Completed: No 01/12/19 09:30 Consult to Occupational Therapy [CONS] Routine Comment: Evaluate, develop and implement POC Reason for Consult: Evaluation to help with deciding next level of care. Does patient have active BEDREST order?: No Is patient medically & hemodynamically stable?: Yes Patient assessed for mobility or mobilized this visit?: Yes Consult to Physical Therapy [CONS] Routine Comment: Evaluate, develop and implement POC Reason for Consult: Evaluation for possible SNF placment Does patient have active BEDREST order?: No Is patient medically & hemodynamically stable?: Yes Patient assessed for mobility or mobilized this visit?: Yes - Constitutional Vitals: Temp Pulse Resp BP Pulse Ox 97.9 F 66 17 176/92 92 01/22/19 06:59 01/22/19 06:59 01/22/19 06:59 01/22/19 06:59 01/22/19 06:59 General appearance: Present: cooperative, A&O X 1, pleasant, no acute distress. Absent: answers questions appropriately - Patient Status Condition: Good - Discharge Instructions Follow Up With: Lyssa Mera CNP [Primary Care Provider] -
[2019-01-22] MEDS: Cholecalciferol (D-3) 1,000 UNIT (25MCG) TABLET PO SCH (08:36)
[2019-01-22] MEDS: Cyanocobalamin (B-12) 1,000 MCG TABLET PO SCH (08:37)
--- NOTE | 2019-01-22 13:48 | Internal Med Progress Note ---
Hospitalist Progress Note - Encounter Date of Encounter: 01/22/19 Time of Encounter: 09:43 - Subjective Interval History: Reason seen and examined this morning at bedside. No acute overnight events. Still with left hip pain. Denies any other complaints. Denies any nausea vomiting or diarrhea. Denies any chest pain or difficulty breathing. - Exam Vitals: Temp Pulse Resp BP Pulse Ox 97.9 F 66 17 176/92 92 01/22/19 06:59 01/22/19 06:59 01/22/19 06:59 01/22/19 06:59 01/22/19 06:59 Exam: General: In no acute distress. Respiratory exam: CTAB. no accessory muscle use, rales, rhonchi, wheezes Cardiovascular exam: RRR, +S1, +S2. no murmur, gallop, rubs. GI/Abdominal exam: Non-tender, Non-distended, normal bowel sounds, soft, no peritoneal signs. Extremities exam: no pedal edema, pulses palpable in b/l lower extremities. no calf tenderness, Lt hip ROM with pain. Neurological exam: CN II-XII intact, AO X3, no focal deficits. Skin exam: No skin rash - Assessment and Plan (1) Anemia Current Visit: Yes Status: Chronic (2) Aortic stenosis Current Visit: Yes Status: Chronic (3) Left hip pain Current Visit: Yes Status: Chronic (4) Hypertension Current Visit: No Status: Chronic (5) Alzheimer's dementia Current Visit: Yes Status: Chronic - Summary of Assessment and Plan Summary of Assessment and Plan: Anemia - stable. without any active bleeding - s/p EGD and colonoscopy done which showed mild gastritis and antral erosions. Pandiverticulosis, 3 small polyps removed. No signs of bleeding or fresh blood. Keep on omeprazole and sucralfate. - Was awaitng SNF placement however mentioning she wanted to go home against PT mentioning she has help at home. However after discussion with family patient agrees to go to rehab. Currentl being arranged by case management/SW. Left hip pain and fall risk - Continue prn oxycodeone, tramadol - Will arranged for rollator on discharge - Needs follow up with orthopedics. Has bilateral hip arthorplasty. HTN - c/w home coreg, losartan DVT ppx - EPCD - Time Spent with Patient Total time spent is greater than 50% in coordination of care (as documented) at patient's floor/unit and/or counseling patient: Internal Medicine: Result - Labs CBC & Chem 7: 01/20/19 06:08 01/20/19 06:08 - ABG Interpretation ABG results: PT/INR, D-dimer PT 11.2 Seconds (9.4-12.1) 01/09/19 20:03 Consult Discharge Plan - Plan Referrals: Lyssa Mera, HEALTH INFORMATICS ADVISOR [Primary Care Provider] - (1) Anemia Qualifiers: Anemia type: unspecified type Qualified Code(s): D64.9 - Anemia, unspecified (2) Aortic stenosis Qualifiers: Cardiac valve disease etiology: etiology unspecified Qualified Code(s): I35.0 - Nonrheumatic aortic (valve) stenosis (4) Hypertension Qualifiers: Hypertension type: essential hypertension Qualified Code(s): I10 - Essential (primary) hypertension (5) Alzheimer's dementia Qualifiers: Alzheimer's disease onset: unspecified onset
[2019-01-22] MEDS: Sucralfate 1 GM TABLET PO SCH ×2 (16:06→21:56)
[2019-01-22] MEDS: Mirtazapine 15 MG TABLET PO SCH (20:18)
[2019-01-22] MEDS: traMADol 50 MG TABLET PO PRN (20:18)
[2019-01-23] MEDS: Cholecalciferol (D-3) 1,000 UNIT (25MCG) TABLET PO SCH (07:51)
[2019-01-23] MEDS: Cyanocobalamin (B-12) 1,000 MCG TABLET PO SCH (07:51)
[2019-01-23] MEDS: Sucralfate 1 GM TABLET PO SCH ×4 (07:51→21:46)
--- NOTE | 2019-01-23 14:09 | Internal Med Progress Note ---
Hospitalist Progress Note - Encounter Date of Encounter: 01/23/19 Time of Encounter: 08:23 - Subjective Interval History: Patient seen and examined this morning at bedside. No acute overnight events. Denies any blood in stool. Denies any nausea vomiting diarrhea, lightheadedness, dizziness, abdominal pain, chest pain or difficulty breathing. Has left hip pain. Slightly paranoid and worried. - Exam Vitals: Temp Pulse Resp BP Pulse Ox 98.1 F 68 16 145/61 91 01/23/19 10:25 01/23/19 10:25 01/23/19 10:25 01/23/19 10:25 01/23/19 10:25 Exam: General: In no acute distress. somewhat paranoid. Respiratory exam: CTAB. no accessory muscle use, rales, rhonchi, wheezes Cardiovascular exam: RRR, +S1, +S2. no murmur, gallop, rubs. GI/Abdominal exam: Non-tender, Non-distended, normal bowel sounds, soft, no peritoneal signs. Extremities exam: no pedal edema, pulses palpable in b/l lower extremities. no calf tenderness, Lt hip ROM with pain. Neurological exam: CN II-XII intact, AO X3, no focal deficits. Skin exam: No skin rash - Assessment and Plan (1) Anemia Current Visit: Yes Status: Chronic (2) Aortic stenosis Current Visit: Yes Status: Chronic (3) Left hip pain Current Visit: Yes Status: Chronic (4) Hypertension Current Visit: No Status: Chronic (5) Alzheimer's dementia Current Visit: Yes Status: Chronic - Summary of Assessment and Plan Summary of Assessment and Plan: Anemia - stable. without any active bleeding - s/p EGD and colonoscopy done which showed mild gastritis and antral erosions. Pandiverticulosis, 3 small polyps removed. No signs of bleeding or fresh blood. c/w omeprazole and sucralfate. - Was awaitng SNF placement. After discussion with family patient agrees to go to rehab. Currently being arranged by case management/SW. Left hip pain and fall risk - Continue prn oxycodeone, tramadol - Will arranged for rollator on discharge - Needs follow up with orthopedics. Has bilateral hip arthorplasty. HTN - c/w home coreg, losartan DVT ppx - EPCD - Time Spent with Patient Total time spent is greater than 50% in coordination of care (as documented) at patient's floor/unit and/or counseling patient: Internal Medicine: Result - Labs CBC & Chem 7: 01/20/19 06:08 01/20/19 06:08 - ABG Interpretation ABG results: PT/INR, D-dimer PT 11.2 Seconds (9.4-12.1) 01/09/19 20:03 Consult Discharge Plan - Plan Referrals: Lyssa Mera FPGA DESIGN ENGINEER [Primary Care Provider] - (1) Anemia Qualifiers: Anemia type: unspecified type Qualified Code(s): D64.9 - Anemia, unspecified (2) Aortic stenosis Qualifiers: Cardiac valve disease etiology: etiology unspecified Qualified Code(s): I35.0 - Nonrheumatic aortic (valve) stenosis (4) Hypertension Qualifiers: Hypertension type: essential hypertension Qualified Code(s): I10 - Essential (primary) hypertension (5) Alzheimer's dementia Qualifiers: Alzheimer's disease onset: unspecified onset
[2019-01-23] MEDS: traMADol 50 MG TABLET PO PRN (19:33)
[2019-01-23] MEDS: Mirtazapine 15 MG TABLET PO SCH (21:46)
[2019-01-24] MEDS: traMADol 50 MG TABLET PO PRN ×2 (05:49→17:41)
[2019-01-24] MEDS: Cholecalciferol (D-3) 1,000 UNIT (25MCG) TABLET PO SCH (08:56)
[2019-01-24] MEDS: Cyanocobalamin (B-12) 1,000 MCG TABLET PO SCH (08:56)
[2019-01-24] MEDS: Sucralfate 1 GM TABLET PO SCH ×4 (08:56→20:15)
--- NOTE | 2019-01-24 10:14 | Internal Med Progress Note ---
Hospitalist Progress Note - Encounter Date of Encounter: 01/24/19 Time of Encounter: 10:14 - Subjective Interval History: Patient seen and examined this morning at bedside. Denies new complaint. Left hip pain similar. On and off paranoid. More calm today. - Exam Vitals: Temp Pulse Resp BP Pulse Ox 98.1 F 73 15 133/71 94 01/24/19 10:07 01/24/19 10:07 01/24/19 10:07 01/24/19 10:07 01/24/19 10:07 Exam: General: In no acute distress. Respiratory exam: CTAB. no accessory muscle use, rales, rhonchi, wheezes Cardiovascular exam: RRR, +S1, +S2. no murmur, gallop, rubs. GI/Abdominal exam: Non-tender, Non-distended, normal bowel sounds, soft, no peritoneal signs. Extremities exam: no pedal edema, pulses palpable in b/l lower extremities. no calf tenderness, Lt hip ROM with pain. Neurological exam: CN II-XII intact, AO X3, no focal deficits. - Assessment and Plan (1) Anemia Current Visit: Yes Status: Chronic (2) Aortic stenosis Current Visit: Yes Status: Chronic (3) Left hip pain Current Visit: Yes Status: Chronic (4) Hypertension Current Visit: No Status: Chronic (5) Alzheimer's dementia Current Visit: Yes Status: Chronic - Summary of Assessment and Plan Summary of Assessment and Plan: Anemia - without any active bleeding - s/p EGD and colonoscopy done which showed mild gastritis and antral erosions. Pandiverticulosis, 3 small polyps removed. No signs of bleeding or fresh blood. c/w omeprazole and sucralfate. - Was awaitng SNF placement. After discussion with family patient agrees to go to rehab. Currently being arranged by case management/SW. Unlikely to happen till saturday Left hip pain and fall risk - Continue prn oxycodeone, tramadol - Will arranged for rollator on discharge - Needs follow up with orthopedics. Has bilateral hip arthorplasty. HTN - c/w home coreg, losartan DVT ppx - EPCD - Time Spent with Patient Total time spent is greater than 50% in coordination of care (as documented) at patient's floor/unit and/or counseling patient: Internal Medicine: Result - Labs CBC & Chem 7: 01/20/19 06:08 01/20/19 06:08 - ABG Interpretation ABG results: PT/INR, D-dimer PT 11.2 Seconds (9.4-12.1) 01/09/19 20:03 Consult Discharge Plan - Plan Referrals: Lyssa Mera, WELDER AND FITTER [Primary Care Provider] - ____ (1) Anemia Qualifiers: Anemia type: unspecified type Qualified Code(s): D64.9 - Anemia, unspecified (2) Aortic stenosis Qualifiers: Cardiac valve disease etiology: etiology unspecified Qualified Code(s): I35.0 - Nonrheumatic aortic (valve) stenosis (4) Hypertension Qualifiers: Hypertension type: essential hypertension Qualified Code(s): I10 - Essential (primary) hypertension (5) Alzheimer's dementia Qualifiers: Alzheimer's disease onset: unspecified onset
[2019-01-24] MEDS: Mirtazapine 15 MG TABLET PO SCH (20:14)
[2019-01-25] MEDS: traMADol 50 MG TABLET PO PRN ×3 (00:10→17:31)
[2019-01-25] MEDS ORDERED: Acetaminophen IV 500 MG/50 ML INFUS..BTL IVPB ONE (01:18)
--- NOTE | 2019-01-25 07:34 | Internal Med Progress Note ---
Hospitalist Progress Note - Encounter Date of Encounter: 01/25/19 Time of Encounter: 07:34 - Subjective Interval History: Patient seen and examined this morning at bedside. No acute overnight events. Blood pressure elevated this morning. Patient without chest pain difficulty breathing headache lightheadedness nausea vomiting. Mentioned she is not having good sleep. Alert and oriented. - Exam Vitals: Temp Pulse Resp BP Pulse Ox 97.5 F L 67 16 209/82 98 01/25/19 06:35 01/25/19 06:35 01/25/19 06:35 01/25/19 06:35 01/25/19 06:35 Exam: General: In no acute distress. Respiratory exam: CTAB. no accessory muscle use, rales, rhonchi, wheezes Cardiovascular exam: RRR, +S1, +S2. no murmur, gallop, rubs. GI/Abdominal exam: Non-tender, Non-distended, normal bowel sounds, soft, no peritoneal signs. Extremities exam: no pedal edema, pulses palpable in b/l lower extremities. no calf tenderness, Lt hip ROM with pain. Neurological exam: CN II-XII intact, AO X3, no focal deficits. - Assessment and Plan (1) Anemia Current Visit: Yes Status: Chronic (2) Aortic stenosis Current Visit: Yes Status: Chronic (3) Left hip pain Current Visit: Yes Status: Chronic (4) Hypertension Current Visit: No Status: Chronic (5) Alzheimer's dementia Current Visit: Yes Status: Chronic - Summary of Assessment and Plan Summary of Assessment and Plan: Anemia - without any active bleeding - s/p EGD and colonoscopy done which showed mild gastritis and antral erosions. Pandiverticulosis, 3 small polyps removed. No signs of bleeding or fresh blood. c/w omeprazole and sucralfate. - Was awaitng SNF placement. After discussion with family patient agrees to go to rehab. Currently being arranged by case management/SW. Unlikely to happen till saturday. obtain Left hip pain and fall risk - Continue prn oxycodeone, tramadol - Will arranged for rollator on discharge - Needs follow up with orthopedics. Has bilateral hip arthorplasty. HTN - c/w home coreg, losartan DVT ppx - EPCD - Time Spent with Patient Total time spent is greater than 50% in coordination of care (as documented) at patient's floor/unit and/or counseling patient: Internal Medicine: Result - Labs CBC & Chem 7: 01/20/19 06:08 01/20/19 06:08 - ABG Interpretation ABG results: PT/INR, D-dimer PT 11.2 Seconds (9.4-12.1) 01/09/19 20:03 Consult Discharge Plan - Plan Referrals: Lyssa Mera, PROCESS IMPROVEMENT SPECIALIST [Primary Care Provider] - (1) Anemia Qualifiers: Anemia type: unspecified type Qualified Code(s): D64.9 - Anemia, unspecified (2) Aortic stenosis Qualifiers: Cardiac valve disease etiology: etiology unspecified Qualified Code(s): I35.0 - Nonrheumatic aortic (valve) stenosis (4) Hypertension Qualifiers: Hypertension type: essential hypertension Qualified Code(s): I10 - Essential (primary) hypertension (5) Alzheimer's dementia Qualifiers: Alzheimer's disease onset: unspecified onset
[2019-01-25] MEDS: Cholecalciferol (D-3) 1,000 UNIT (25MCG) TABLET PO SCH (08:14)
[2019-01-25] MEDS: Sucralfate 1 GM TABLET PO SCH ×4 (08:14→20:21)
[2019-01-25] MEDS: Cyanocobalamin (B-12) 1,000 MCG TABLET PO SCH (08:14)
[2019-01-25] MEDS: Mirtazapine 15 MG TABLET PO SCH (20:21)
[2019-01-26] MEDS: Sucralfate 1 GM TABLET PO SCH ×4 (07:52→19:45)
[2019-01-26] MEDS: Cyanocobalamin (B-12) 1,000 MCG TABLET PO SCH (07:52)
[2019-01-26] MEDS: Cholecalciferol (D-3) 1,000 UNIT (25MCG) TABLET PO SCH (07:52)
--- NOTE | 2019-01-26 09:26 | Internal Med Progress Note ---
Hospitalist Progress Note - Encounter Date of Encounter: 01/26/19 Time of Encounter: 09:26 - Subjective Interval History: Patient seen and examined this morning and better. No acute overnight events. Denies new complaints. Says and "tired of staying in the hospital." He denies any lightheadedness dizziness chest pain difficulty breathing. - Exam Vitals: Temp Pulse Resp BP Pulse Ox 98.6 F 61 15 172/76 95 01/26/19 07:01 01/26/19 07:01 01/26/19 07:01 01/26/19 07:01 01/26/19 07:01 Exam: General: In no acute distress. Respiratory exam: CTAB. no accessory muscle use, rales, rhonchi, wheezes Cardiovascular exam: RRR, +S1, +S2. no murmur, gallop, rubs. GI/Abdominal exam: Non-tender, Non-distended, normal bowel sounds, soft, no peritoneal signs. Extremities exam: no pedal edema, pulses palpable in b/l lower extremities. no calf tenderness, Lt hip ROM with pain. Neurological exam: CN II-XII intact, AO X3, no focal deficits. - Assessment and Plan (1) Anemia Current Visit: Yes Status: Chronic (2) Aortic stenosis Current Visit: Yes Status: Chronic (3) Left hip pain Current Visit: Yes Status: Chronic (4) Hypertension Current Visit: No Status: Chronic (5) Alzheimer's dementia Current Visit: Yes Status: Chronic - Summary of Assessment and Plan Summary of Assessment and Plan: Anemia - without any active bleeding - s/p EGD and colonoscopy done which showed mild gastritis and antral erosions. Pandiverticulosis, 3 small polyps removed. No signs of bleeding or fresh blood. c/w omeprazole and sucralfate. - awaitng SNF placement. Left hip pain and fall risk - Continue prn oxycodeone, tramadol - Will arranged for rollator on discharge - Needs follow up with orthopedics. Has bilateral hip arthorplasty. HTN - c/w home coreg, losartan DVT ppx - EPCD - Time Spent with Patient Total time spent is greater than 50% in coordination of care (as documented) at patient's floor/unit and/or counseling patient: Internal Medicine: Result - Labs CBC & Chem 7: 01/20/19 06:08 01/20/19 06:08 - ABG Interpretation ABG results: PT/INR, D-dimer PT 11.2 Seconds (9.4-12.1) 01/09/19 20:03 Consult Discharge Plan - Plan Referrals: Lyssa Mera, PIC[employer] MECHANIC [Primary Care Provider] - (1) Anemia Qualifiers: Anemia type: unspecified type Qualified Code(s): D64.9 - Anemia, unspecified (2) Aortic stenosis Qualifiers: Cardiac valve disease etiology: etiology unspecified Qualified Code(s): I35.0 - Nonrheumatic aortic (valve) stenosis (4) Hypertension Qualifiers: Hypertension type: essential hypertension Qualified Code(s): I10 - Essential (primary) hypertension (5) Alzheimer's dementia Qualifiers: Alzheimer's disease onset: unspecified onset
[2019-01-26] MEDS: traMADol 50 MG TABLET PO PRN (15:59)
[2019-01-26] MEDS: Mirtazapine 15 MG TABLET PO SCH (19:45)
[2019-01-27] MEDS: traMADol 50 MG TABLET PO PRN (06:02)
[2019-01-27] MEDS: Cyanocobalamin (B-12) 1,000 MCG TABLET PO SCH (07:57)
[2019-01-27] MEDS: Cholecalciferol (D-3) 1,000 UNIT (25MCG) TABLET PO SCH (07:57)
[2019-01-27] MEDS: Sucralfate 1 GM TABLET PO SCH ×2 (07:57→11:48)
--- NOTE | 2019-01-27 14:04 | Discharge Summary ---
- NOTES TO OUTPATIENT PROVIDER Notes to Outpatient Provider: Patient will need to follow with orthopedist for her left hip. Date of Encounter: 01/27/19 Time of Encounter: 13:59 - Discharge Diagnosis (1) Anemia Priority: Primary Status: Chronic Qualifiers: Anemia type: unspecified type Qualified Code(s): D64.9 - Anemia, unspecified (2) Aortic stenosis Priority: Secondary Status: Chronic Qualifiers: Cardiac valve disease etiology: etiology unspecified Qualified Code(s): I35.0 - Nonrheumatic aortic (valve) stenosis (3) Left hip pain Priority: Secondary Status: Chronic (4) Hypertension Priority: Secondary Status: Chronic Qualifiers: Hypertension type: essential hypertension Qualified Code(s): I10 - Essential (primary) hypertension (5) Alzheimer's dementia Priority: Secondary Status: Chronic Qualifiers: Alzheimer's disease onset: unspecified onset Qualified Code(s): G30.9 - Alzheimer's disease, unspecified; F02.81 - Dementia in other diseases classified elsewhere with behavioral disturbance Hospital course: Ms. Kelly is a 83 year old female with a PMHx of OA, HTN and HLD who sent for admission from her PCPs office on account of severe anemia and melanotic stools. She received 2 units of PRBCs and Hb has remained stable afterwards. She no longer has melena stools. EGD and colonoscopy done mild gastritis and antral erosions. Pandiverticulosis, 3 small polyps removed. Patient was discharged on omeprazole and carafate. However patient did not have SNF placement for long time and she was in the hospital wide was being arranged. He did not have any further episodes of melanotic stool. She was asymptomatic otherwise except for left hip pain on and off. She has follow-up appointment with orthopedics which she will need to follow up as outpatient. She will continue iron supplement, PPI and sucralfate. Discharge discussed with: patient, nurse, social work, devops consultant - Time Spent with Patient Total time spent providing and/or coordinating discharge services: Time spent: Greater than 30 minutes (35) - Discharge Medications Prescriptions: New Sucralfate [Carafate] 1 gm PO QIDAC #40 tablet Ferrous Sulfate 325 mg PO DAILY #30 tablet Omeprazole [PriLOSEC] 20 mg PO DAILY@0630 #14 capsule. Aspirin Enteric Coated [Aspirin EC] 81 mg PO DAILY #30 tablet. Continued Tramadol HCl [Ultram] 100 mg PO Q6HR PRN PRN Reason: Pain Cholecalciferol (D-3) [Vitamin D] 5,000 unit PO DAILY Cyanocobalamin (Vitamin B-12) [Vitamin B-12] 1,000 mcg PO DAILY Carvedilol [Coreg] 6.25 mg PO BID Mirtazapine [Remeron] 15 mg PO HS Donepezil HCl [Aricept] 5 mg PO HS Losartan [Cozaar] 50 mg PO DAILY Discontinued Aspirin [Lo-Dose Aspirin EC] 81 mg PO DAILY Home Medications: Cholecalciferol (D-3) [Vitamin D] 5,000 unit PO DAILY 11/16/17 [History] Tramadol HCl [Ultram] 100 mg PO Q6HR PRN 11/16/17 [History] Carvedilol [Coreg] 6.25 mg PO BID 01/10/19 [History] Cyanocobalamin (Vitamin B-12) [Vitamin B-12] 1,000 mcg PO DAILY 01/10/19 [History] Donepezil HCl [Aricept] 5 mg PO HS 01/10/19 [History] Losartan [Cozaar] 50 mg PO DAILY 01/10/19 [History] Mirtazapine [Remeron] 15 mg PO HS 01/10/19 [History] Aspirin Enteric Coated [Aspirin EC] 81 mg PO DAILY #30 tablet. 01/12/19 [Rx] Ferrous Sulfate 325 mg PO DAILY #30 tablet 01/12/19 [Rx] Omeprazole [PriLOSEC] 20 mg PO DAILY@0630 #14 capsule. 01/12/19 [Rx] Sucralfate [Carafate] 1 gm PO QIDAC #40 tablet 01/12/19 [Rx] Allergies/Adverse Reactions: Allergy/AdvReac Type Severity Reaction Status Date / Time acetaminophen [From Vicodin] AdvReac Nausea Verified 01/11/19 10:23 hydrocodone [From Vicodin] AdvReac Nausea Verified 01/11/19 10:23 pregabalin [From Lyrica] AdvReac Dizziness Verified 01/11/19 10:23 Date of admission: 01/14/19 12:58 Primary care physician: Lyssa Mera CNP Consults: 01/10/19 00:12 Consult to Bottom Painter [CONS] Routine Reason for SW Consult: pt request for help from home health services 01/10/19 01:01 Consult to Physician [CONS] Routine Consulting Provider: Bobby Diaz Reason for Consult: GI bleed, melena. Hemoglobin 6.8 Call Completed: No 01/12/19 09:30 Consult to Occupational Therapy [CONS] Routine Comment: Evaluate, develop and implement POC Reason for Consult: Evaluation to help with deciding next level of care. Does patient have active BEDREST order?: No Is patient medically & hemodynamically stable?: Yes Patient assessed for mobility or mobilized this visit?: Yes Consult to Physical Therapy [CONS] Routine Comment: Evaluate, develop and implement POC Reason for Consult: Evaluation for possible SNF placment Does patient have active BEDREST order?: No Is patient medically & hemodynamically stable?: Yes Patient assessed for mobility or mobilized this visit?: Yes Discharging clinician: Tia Engle - Constitutional Vitals: Temp Pulse Resp BP Pulse Ox 97.5 F L 61 15 114/50 94 01/27/19 10:07 01/27/19 10:07 01/27/19 10:07 01/27/19 10:07 01/27/19 10:07 General appearance: Absent: answers questions appropriately Exam: General: In no acute distress. Respiratory exam: CTAB. no accessory muscle use, rales, rhonchi, wheezes Cardiovascular exam: RRR, +S1, +S2. no murmur, gallop, rubs. GI/Abdominal exam: Non-tender, Non-distended, normal bowel sounds, soft, no peritoneal signs. Extremities exam: no pedal edema, pulses palpable in b/l lower extremities. no calf tenderness, Lt hip ROM with pain. Neurological exam: CN II-XII intact, AO X3, no focal deficits. - Patient Status Disposition: Transfer SNF Condition: Good - Discharge Instructions Follow Up With: Lyssa Mera CNP [Primary Care Provider] - - Diet and Activity Activity: as per physical therapy
--- NOTE | 2019-01-27 14:05 | Physician Discharge Referral ---
ExtendedCare Referral Info Institutional Level of Care: Skilled - Diagnosis (1) Anemia Status: Chronic (2) Aortic stenosis Status: Chronic (3) Left hip pain Status: Chronic (4) Hypertension Status: Chronic (5) Alzheimer's dementia Status: Chronic - Transfer Medications Home Medications: Cholecalciferol (D-3) [Vitamin D] 5,000 unit PO DAILY 11/16/17 [History] Tramadol HCl [Ultram] 100 mg PO Q6HR PRN 11/16/17 [History] Carvedilol [Coreg] 6.25 mg PO BID 01/10/19 [History] Cyanocobalamin (Vitamin B-12) [Vitamin B-12] 1,000 mcg PO DAILY 01/10/19 [History] Donepezil HCl [Aricept] 5 mg PO HS 01/10/19 [History] Losartan [Cozaar] 50 mg PO DAILY 01/10/19 [History] Mirtazapine [Remeron] 15 mg PO HS 01/10/19 [History] Aspirin Enteric Coated [Aspirin EC] 81 mg PO DAILY #30 tablet. 01/12/19 [Rx] Ferrous Sulfate 325 mg PO DAILY #30 tablet 01/12/19 [Rx] Omeprazole [PriLOSEC] 20 mg PO DAILY@0630 #14 capsule. 01/12/19 [Rx] Sucralfate [Carafate] 1 gm PO QIDAC #40 tablet 01/12/19 [Rx] Allergies/Adverse Reactions: Allergy/AdvReac Type Severity Reaction Status Date / Time acetaminophen [From Vicodin] AdvReac Nausea Verified 01/11/19 10:23 hydrocodone [From Vicodin] AdvReac Nausea Verified 01/11/19 10:23 pregabalin [From Lyrica] AdvReac Dizziness Verified 01/11/19 10:23 - Respiratory Orders Smoking Cessation: Smoking cessation has been advised. For more information, call the [place] Tobacco Quit Line at 6-447-FTLU-NOW. CERTIFICATION: I certify that the transfer of the above named patient to an Extended Care Facility is necessary for the continuing treatment of the diagnosis listed. The above information is true and accurate reflection of patient's current condition. Confidential - Redisclosure prohibited without a patient's written consent.
[2019-01-27 14:30] VITALS: BP 159/68
== END 2019-01-27 16:46 | DRG 811 ==
LOC: 3ANU 17:39 → EMEROOARM 17:39 → SUATTDRO 22:44 → 3ANU 23:18 → SUATTDRO 01-14 12:58
PROVIDERS: ADMIT Family Medicine; ATTEND Internal Medicine
PROC: ENDOEBX (2019-01-10 09:45)